=== PATIENT | male | born 1965 | race Caucasian/White ===

== ENCOUNTER 2019-07-24 17:03 | Emergency (ER) | payer OTHER ==
[2019-07-24 17:26] VITALS: RESP 18; TEMP 98.1
[2019-07-24] MEDS ORDERED: KETOROLAC 60 MG/2 ML VIAL IM STA (18:09)
[2019-07-24] MEDS ORDERED: predniSONE 50 MG TAB PO STA (18:09)
[2019-07-24] MEDS ORDERED: ACET/COD 300 MG/30 MG STARTER PACK 6 TAB BTL PO STA (18:25)
--- NOTE | 2019-07-24 18:31 | ED ---
General Adult HPI - General Chief complaint: Back Pain/Injury Stated complaint: BACK AND HIP PAIN Time Seen by Provider: 07/24/19 17:50 Source: patient, RN notes reviewed, old records reviewed Mode of arrival: ambulatory Limitations: no limitations - History of Present Illness Initial comments: 54-year-old male patient to see for chief complaint of right paralumbar back pain. Patient reports approximately one week ago he picked up a 55 gallon drum. Patient reports a since then he has had pain in his right paralumbar region rating down his posterior right gluteal region. Patient reports he has had some paresthesias in that region as well. Denies any saddle anesthesia. Denies any lower extremity weakness. Denies any loss of bowel or bladder control. Denies any other complaints at this time. Systemic: Pt denies fatigue, fever/chills, rash. Pt denies weakness, night sweats, weight loss. Neuro: Pt denies headache, visual disturbances, syncope or pre-syncope. HEENT: Pt denies ocular discharge or irritation, otalgia, rhinorrhea, pharyngitis or notable lymphadenopathy. Cardiopulmonary: Pt denies chest pain, SOB, heart palpitations, dyspnea on exertion. Abdominal/GI: Pt denies abdominal pain, n/v/d. : Pt denies dysuria, burning w/ urination, frequency/urgency. Denies new onset urinary or bowel incontinence. MSK: Pt denies loss of strength or function in extremities. Neuro: Pt denies new onset weakness, paresthesias. - Related Data Previous Rx's Medication Instructions Recorded Amoxic-Pot Clav 500-125 mg 1 each PO Q12HR #14 tab 05/14/15 [Augmentin 500-125 mg] Hydrocodone/Acetaminophen [[place] 1 each PO Q6HR PRN #20 tab 05/14/15 5-325] predniSONE 50 mg PO DAILY #4 tab 07/24/19 Allergies Allergy/AdvReac Type Severity Reaction Status Date / Time ibuprofen AdvReac Itching Verified 07/24/19 17:26 Review of Systems ROS Statement: Those systems with pertinent positive or pertinent negative responses have been documented in the HPI. ROS Other: All systems not noted in ROS Statement are negative. Past Medical History Past Medical History: No Reported History History of Any Multi-Drug Resistant Organisms: None Reported Past Surgical History: Cholecystectomy, Hernia Repair Past Psychological History: No Psychological Hx Reported Smoking Status: Current every day smoker Past Alcohol Use History: Occasional Past Drug Use History: None Reported General Exam - General Exam Comments Initial Comments: Constitutional: NAD, AOX3, Pt has pleasant affect. HEENT: NC/AT, trachea midline, neck supple, no lymphadenopathy. Posterior pharynx non erythematous, without exudates. External ears appear normal, without discharge. Mucous membranes moist. Eyes PERRLA, EOM intact. There is no scleral icterus. No pallor noted. Cardiopulmonary: RRR, no murmurs, rubs or gallops, no JVD noted. Lungs CTAB in anterior and posterior isaac. No peripheral edema. Abdominal exam: Abdomen soft and non-distended. Abdomen non-tender to palpation in all 4 quadrants. Bowel sounds active in LLQ. No hepatosplenomegaly. No ecchymosis Neuro: CN II-XII grossly intact. No nuchal rigidity. No raccon eyes, no vega sign, no hemotympanum. No cervical spinal tenderness. MSK: 5 out of 5 psoas and quadriceps strength. Heel to toe walking intact. Sensation intact. Right paralumbar region mildly tender to palpation. No posterior calf tenderness bilaterally, homans sign negative bilaterally. Posterior tibialis and radial pulse +2 bilaterally. Sensation intact in upper and lower extremities. Full active ROM in upper and lower extremities, 5/5 stregnth. Limitations: no limitations Course Vital Signs 07/24/19 17:23 Temperature 98.1 F Pulse Rate 66 Respiratory 18 Rate Blood Pressure 182/95 O2 Sat by Pulse 100 Oximetry Medical Decision Making - Medical Decision Making 54-year-old male patient presents to ED with right paralumbar strain. This occurred after picking up a 55 gallon drum. Patient was of ongoing for approximately one week. Denies any red flag symptoms. Physical exam displayed about 5 strength quadriceps psoas muscles, sensation intact. Resisted flexion of right lower extremity diffuse pain. Patient is ambulatory. Heel toe walking intact. Patient offered, declined plain films. Patient declined rectal exam. Patient initiated on anti-inflammatories, steroids. Patient will follow-up with primary care provider will be given orthopedic consult symptoms persist. Case discussed with Dr. Matt. Disposition Clinical Impression: Lumbar back sprain Disposition: HOME SELF-CARE Condition: Stable Instructions (If sedation given, give patient instructions): Acute Low Back P ain (ED) Additional Instructions: Patient to adhere to previously discussed treatment plan and will take medication(s) as directed. Patient to follow up with PCP in 1-2 days. Patient to return to ED if symptoms do not improve. Follow up with primary care provider tomorrow. Take medication as directed. Follow with orthopedic consult symptoms persist or worsen. Prescriptions: predniSONE 50 mg PO DAILY #4 tab Is patient prescribed a controlled substance at d/c from ED?: No Referrals: None,Stated [Primary Care Provider] - 1-2 days Lucinda Hobbs, DO [Doctor of Osteopathic Medicine] - 1-2 days
[2019-07-24 19:21] VITALS: BP 190/90; PULSE 60
== END 2019-07-24 19:22 | disposition home or self-care (01) ==
LOC: EC 17:03
DX: S33.5XXA Sprain of ligaments of lumbar spine, initial encounter (principal); F17.200 Nicotine dependence, unspecified, uncomplicated; Z88.6 Allergy status to analgesic agent; X50.9XXA Other and unspecified overexertion or strenuous movements or postures, initial encounter
CPT/HCPCS: 99283; 96372; J1885; J7512

== ENCOUNTER 2019-08-01 14:53 | Emergency (ER) | payer OTHER ==
[2019-08-01 15:05] VITALS: BP 183/100; PULSE 61; RESP 18; TEMP 97.7
[2019-08-01] MEDS ORDERED: DIAZEPAM 5 MG TAB PO STA (15:20)
[2019-08-01] MEDS ORDERED: Acetaminophen-Codeine 300-30mg TAB PO STA (15:21)
--- NOTE | 2019-08-01 15:52 | XR ---
EXAM TYPE: LUMBAR SPINE X RAY SERIES COMPARISON: 09/09/2008 HISTORY: Low back pain TECHNIQUE: 3 views are submitted. FINDINGS: Alignment is anatomic. The pedicles are intact. The transverse processes are intact. Surgical clip s in the right upper quadrant noted. Hypertrophic and degenerative changes at all levels. There is a slight anterolisthesis of L4 on L5 with multilevel facet arthropathy. There is a age-indeterminate co mpression fracture of T12. Vascular calcifications are noted. IMPRESSION: 1. Age indeterminate compression fracture T12 2. Multilevel degenerative disc disease and facet arthropathy with grade 1 anterolisthesis L4 on L5.
--- NOTE | 2019-08-01 16:43 | ED ---
General Adult HPI - General Chief complaint: Back Pain/Injury Stated complaint: back pain/revisit Time Seen by Provider: 08/01/19 15:06 Source: patient, RN notes reviewed, old records reviewed Mode of arrival: ambulatory Limitations: no limitations - History of Present Illness Initial comments: 54-year-old male patient presents ED chief complaint of back pain. Patient reports that he was seen approximately to go for back pain. Patient reports he is feeling much improved over yesterday he was shoveling at work, exacerbated his right paralumbar back pain. Patient works that today he went to stand up, he put weight on his right leg he felt pain in his right paralumbar region. Patient controlled to sent to chair and then slid to ground. Denies any other complaints. Denies any saddle anesthesia, loss of bowel or bladder control, lower extremity paresthesias. Systemic: Pt denies fatigue, fever/chills, rash. Pt denies weakness, night sweats, weight loss. Neuro: Pt denies headache, visual disturbances, syncope or pre-syncope. HEENT: Pt denies ocular discharge or irritation, otalgia, rhinorrhea, pharyngitis or notable lymphadenopathy. Cardiopulmonary: Pt denies chest pain, SOB, heart palpitations, dyspnea on exertion. Abdominal/GI: Pt denies abdominal pain, n/v/d. : Pt denies dysuria, burning w/ urination, frequency/urgency. Denies new onset urinary or bowel incontinence. MSK: Pt deniesloss of strength or function in extremities. Neuro: Pt denies new onset weakness, paresthesias. - Related Data Previous Rx's Medication Instructions Recorded predniSONE 50 mg PO DAILY #4 tab 07/24/19 Cyclobenzaprine [Flexeril] 1 - 2 tab PO TID PRN #20 tablet 08/01/19 Allergies Allergy/AdvReac Type Severity Reaction Status Date / Time ibuprofen AdvReac Itching Verified 07/24/19 17:26 Review of Systems ROS Statement: Those systems with pertinent positive or pertinent negative responses have been documented in the HPI. ROS Other: All systems not noted in ROS Statement are negative. Past Medical History Past Medical History: No Reported History History of Any Multi-Drug Resistant Organisms: None Reported Past Surgical History: Cholecystectomy, Hernia Repair Past Psychological History: No Psychological Hx Reported Smoking Status: Current every day smoker Past Alcohol Use History: Occasional Past Drug Use History: None Reported General Exam - General Exam Comments Initial Comments: Constitutional: NAD, AOX3, Pt has pleasant affect. HEENT: NC/AT, trachea midline, neck supple, no lymphadenopathy. Posterior pharynx non erythematous, without exudates. External ears appear normal, without discharge. Mucous membranes moist. Eyes PERRLA, EOM intact. There is no scleral icterus. No pallor noted. Cardiopulmonary: RRR, no murmurs, rubs or gallops, no JVD noted. Lungs CTAB in anterior and posterior isaac. No peripheral edema. Abdominal exam: Abdomen soft and non-distended. Abdomen non-tender to palpation in all 4 quadrants. Bowel sounds active in LLQ. No hepatosplenomegaly. No ecchymosis Neuro: CN II-XII grossly intact. No nuchal rigidity. No raccon eyes, no vega sign, no hemotympanum. No cervical spinal tenderness. MSK: Right paralumbar region mildly tender to palpation. No midline tenderness. Right straight leg raise positive. Left straight leg raise negative. Sensation intact. Ambulatory. No posterior calf tenderness bilaterally, homans sign negative bilaterally. Posterior tibialis and radial pulse +2 bilaterally. Sensation intact in upper and lower extremities. Full active ROM in upper and lower extremities, 5/5 stregnth. Limitations: no limitations Course Vital Signs 08/01/19 15:01 Temperature 97.7 F Pulse Rate 61 Respiratory 18 Rate Blood Pressure 183/100 O2 Sat by Pulse 100 Oximetry Medical Decision Making - Medical Decision Making 54-year-old male patient presents to ED chief complaint of exacerbation of back pain with mechanism. Patient vital signs blood mild hypertension. Physical exam suggestive of right paralumbar back strain. No point tenderness. Plain film of lumbar spine did reveal age-indeterminate T12 fracture. Patient does not have point tenderness in this region. Patient noted to have mildly elevated blood pressure. Will follow up with PCP. Patient was discharged with outpatient follow-up with primary care provider, patient held as well as orthopedics. Case discussed with Dr. Donnelly. Disposition Clinical Impression: Lumbar back sprain Disposition: HOME SELF-CARE Instructions (If sedation given, give patient instructions): Acute Low Back Pain (ED) Additional Instructions: Patient to adhere to previously discussed treatment plan and will take medication(s) as directed. Patient to follow up with PCP in 1-2 days. Patient to return to ED if symptoms do not improve. Follow-up with primary care provider occupational health and orthopedic consult tomorrow. Avoid strenuous activity. Use medication as needed for pain. Return to ER if condition worsens. Prescriptions: Cyclobenzaprine [Flexeril] 1 - 2 tab PO TID PRN #20 tablet PRN Reason: muscle spasm Is patient prescribed a controlled substance at d/c from ED?: No Referrals: None,Stated [Primary Care Provider] - 1-2 days Lucinda Hobbs DO [Doctor of Osteopathic Medicine] - 1-2 days Jey Bland MD [STAFF PHYSICIAN] - 1-2 days
[2019-08-01] MEDS ORDERED: ACET/COD 300 MG/30 MG STARTER PACK 6 TAB BTL PO STA (16:44)
== END 2019-08-01 16:50 | disposition home or self-care (01) ==
LOC: EC 14:53
DX: S33.5XXA Sprain of ligaments of lumbar spine, initial encounter (principal); F17.200 Nicotine dependence, unspecified, uncomplicated; Z88.6 Allergy status to analgesic agent; X58.XXXA Exposure to other specified factors, initial encounter; Y93.H1 Activity, digging, shoveling and raking; Y92.69 Other specified industrial and construction area as the place of occurrence of the external cause; Y99.0 Civilian activity done for income or pay
CPT/HCPCS: 72100; 99284

== ENCOUNTER 2023-10-01 12:56 | Inpatient (IN) | payer OTHER ==
[2023-10-01 13:59] LABS: Basophils # (A) 0.1 k/uL (0-0.2); Basophils % (A) 1 %; Eosinophils # (A) 0.1 k/uL (0-0.7); Eosinophils % (A) 1 %; HCT 42.9 % (39.0-53.0); HGB 15.2 gm/dL (13.0-17.5); Lymphocytes # (A) 1.8 k/uL (1.0-4.8); Lymphocytes % (A) 17 %; MCH 35.7 pg (25.0-35.0); MCHC 35.3 g/dL (31.0-37.0); MCV 101.1 fL (80.0-100.0); Mean Platelet Volume 7.4; Monocytes # (A) 0.6 k/uL (0-1.0); Monocytes % (A) 5 %; Neutrophils # (A) 7.7 k/uL (1.3-7.7); Neutrophils % (A) 75 %; Platelet Count 227 k/uL (150-450); RBC 4.24 m/uL (4.30-5.90); RDW 12.2 % (11.5-15.5); WBC 10.3 k/uL (3.8-10.6)
--- NOTE | 2023-10-01 14:08 | ED ---
General Adult HPI - General Chief complaint: Extremity Problem,Nontraumatic Stated complaint: R foot pain Time Seen by Provider: 10/01/23 13:06 Source: patient, RN notes reviewed Mode of arrival: ambulatory Limitations: no limitations - History of Present Illness Initial comments: 58-year-old male with no significant past medical history presents to the emergency department with a chief complaint of left foot problem. Patient reports that his left great toe started to turn into the color approximately one week ago. He reports his whole told history of black and started migrating to the top of his foot. She is also complaining of redness. He denies any nose, tingling or weakness. He does admit that is painful. Denies history of di abetes. She reports that it initially started on a small scratch there is rapidly progress. Denies any known fevers. He has not seen a medical doctor in quite some time. He does not take any medications daily. Patient does smoke tobacco products daily - Related Data Home Medications Medication Instructions Recorded Confirmed No Known Home Medications 10/01/23 10/01/23 Allergies Allergy/AdvReac Type Severity Reaction Status Date / Time No Known Allergies Allergy Verified 10/01/23 16:54 Review of Systems ROS Statement: Those systems with pertinent positive or pertinent negative responses have been documented in the HPI. ROS Other: All systems not noted in ROS Statement are negative. Past Medical History Past Medical History: No Reported History History of Any Multi-Drug Resistant Organisms: None Reported Past Surgical History: Cholecystectomy, Hernia Repair Past Psychological History: No Psychological Hx Reported Smoking Status: Current every day smoker Past Alcohol Use History: Occasional Past Drug Use History: None Reported General Exam - General Exam Comments Initial Comments: General: Alert, in no acute distress Head: atraumatic normocephalic. Eyes PERRL, EOMI intact, mucous membranes moist Respiratory: Lungs clear to auscultation bilaterally Cardiovascular: Tachycardic Abdominal: Soft without guarding or rebound Extremities: Right great toe with necrotic tissue that appears to be dry gangrene with discharge to top of dorsal surface, no palpable DP pulse Neuroogic: alert and oriented 3, CN II-XII intact, able to ambulate with steady gait Skin: warm dry and intact with normal color Limitations: no limitations Course Vital Signs 10/01/23 10/01/23 10/01/23 12:59 13:51 16:17 Temperature 98.8 F 98.1 F 98.4 F Pulse Rate 118 H 96 73 Respiratory 20 20 17 Rate Blood Pressure 198/129 196/110 200/105 O2 Sat by Pulse 98 98 98 Oximetry - Reevaluation(s) Reevaluation #1: 10/01/23 15:[address] Hartley, who recommends starting heparin and requests CHARLES with doppler to be ordered. Reevaluation #2: 10/01/23 16:38 Case is discussed who agrees and accepts the patient for admission Medical Decision Making - Medical Decision Making Was pt. sent in by a medical professional or institution (, JORDY, CERTIFIED RESIDENTIAL MEDICATION AIDE, urgent care, hospital, or assisted...) When possible be specific @ -[No] Did you speak to anyone other than the patient for history (EMS, parent, family, police, friend...)? What history was obtained from this source @ -[No] Did you review nursing and triage notes (agree or disagree)? Why? @ -[I reviewed and agree with nursing and triage notes] Were old charts reviewed (outside hosp., previous admission, EMS record, old EKG, old radiological studies, urgent care reports/EKG's, assisted records)? Report findings @ -[No old charts were reviewed] Differential Diagnosis (chest pain, altered mental status, abdominal pain women, abdominal pain men, vaginal bleeding, weakness, fever, dyspnea, syncope, headache, dizziness, GI bleed, back pain, seizure, CVA, palpatations, mental health, musculoskeletal)? @ -[not applicable] EKG interpreted by me (3pts min.). @ -[As above] X-rays interpreted by me (1pt min.). @ -[None done] CT interpreted by me (1pt min.). @ -yes, below U/S interpreted by me (1pt. min.). @ -[None done] What testing was considered but not performed or refused? (CT, X-rays, U/S, labs)? Why? @ -[None] What meds were considered but not given or refused? Why? @ -[None] Did you discuss the management of the patient with other professionals (professionals i.e. , JORDY, CERTIFIED RESIDENTIAL MEDICATION AIDE, lab, RT, psych nurse, marriage and family social worker, trial lawyer, teacher, medical officer, cyanide case hardener)? Give summary @ -Case discussed with Dr. Pollard, who recommends starting heparin and having CHARLES with US Doppler Case discussed with [facility] who agrees and accepts the patient for admission Was smoking cessation discussed for >3mins.? @ -yes Was critical care preformed (if so, how long)? @ -[No] Were there social determinants of health that impacted care today? How? (Homelessness, low income, unemployed, alcoholism, drug addiction, transportation, low edu. Level, literacy, decrease access to med. care, half-way, rehab)? @ -Medical Non-compliance, lack of routine medical care Was there de-escalation of care discussed even if they declined (Discuss DNR or withdrawal of care, Hospice)? DNR status @ -[No] What co-morbidities impacted this encounter? (DM, HTN, Smoking, COPD, CAD, Cancer, CVA, ARF, Chemo, Hep., AIDS, mental health diagnosis, sleep apnea, morbid obesity)? @ -Smoking, undiagnosed HTN, Undiagnosed DM Was patient admitted / discharged? Hospital course, mention meds given and route, prescriptions, significant lab abnormalities, going to OR and other pert inent info. @ Admission. This is a pleasant 58-year-old male who presents to the emergency department with right leg problem. Patient had a thorough history and physical exam performed. Right great toe is necrotic with small amount of necrotic tissue to the dorsal surface of the right foot. No palpable DP pulse to right lower extremity, the touch. No calf tenderness. Patient laboratory studies which reveal WBC 10.3, hemoglobin 15.2, coagulations studies unrema rkable sodium 128 potassium 4.1 lactic acid 2.1 CK 37 CRP 2.5 I interpreted the following: XR of right leg reveals any evidence or fracture CT ight lower extremity which revealed vision of the distal right popliteal artery with reconstitution of the postsurgically artery in the fibular artery -Anterior tibial artery appears occluded from its origin and does not cross the foot I discussed the results in detail the patient verbalized understanding all questions addressed. He is agreeable with the plan for admission. Patient be started on high-dose heparin. Case is discussed with [facility] who agrees and accepts the patient for admission. Undiagnosed new problem with uncertain prognosis? @ -[No] Drug Therapy requiring intensive monitoring for toxicity (Heparin, Nitro, Insulin, Cardizem)? @ -Heparin Were any procedures done? @ -[No] Diagnosis/symptom? @ -Popliteal artery occlusion - Medical Non-compliance - New onset HTN - New onset DM Acute, or Chronic, or Acute on Chronic? @ -Acute on chronic Uncomplicated (without systemic symptoms) or Complicated (systemic symptoms)? @ -complicated Side effects of treatment? @ -[No] Exacerbation, Progression, or Severe Exacerbation? @ -[No] Poses a threat to life or bodily function? How? (Chest pain, USA, DC, pneumonia, PE, COPD, DKA, ARF, appy, cholecystitis, CVA, Diverticulitis, Homicidal, Suicidal, threat to staff... and all critical care pts) @ -yes - Lab Data Result diagrams: 10/01/23 13:49 10/01/23 13:49 Lab Results 10/01/23 10/01/23 10/01/23 Range/Units 13:49 13:49 13:49 WBC 10.3 (3.8-10.6) k/uL RBC 4.24 L (4.30-5.90) m/uL Hgb 15.2 (13.0-17.5) gm/dL Hct 42.9 (39.0-53.0) % MCV 101.1 H (80.0-100.0) fL MCH 35.7 H (25.0-35.0) pg MCHC 35.3 (31.0-37.0) g/dL RDW 12.2 (11.5-15.5) % Plt Count 227 (150-450) k/uL MPV 7.4 Neutrophils % 75 % Lymphocytes % 17 % Monocytes % 5 % Eosinophils % 1 % Basophils % 1 % Neutrophils # 7.7 (1.3-7.7) k/uL Lymphocytes # 1.8 (1.0-4.8) k/uL Monocytes # 0.6 (0-1.0) k/uL Eosinophils # 0.1 (0-0.7) k/uL Basophils # 0.1 (0-0.2) k/uL PT 9.7 L (10.0-12.5) sec INR 0.9 (<1.2) APTT 28.2 (22.0-30.0) sec Sodium 128 L (137-145) mmol/L Potassium 4.1 (3.5-5.1) mmol/L Chloride 93 L (98-107) mmol/L Carbon Dioxide 20 L (22-30) mmol/L Anion Gap 15 mmol/L BUN 9 (9-20) mg/dL Creatinine 0.78 (0.66-1.25) mg/dL Est GFR (CKD-EPI)AfAm >90 (>60 ml/min/1.73 sqM) Est GFR (CKD-EPI)NonAf >90 (>60 ml/min/1.73 sqM) Glucose 292 H (74-99) mg/dL Lactic Ac Sepsis Rflx Plasma Lactic Acid Mark (0.7-2.0) mmol/L Calcium 9.6 (8.4-10.2) mg/dL Total Bilirubin 0.8 (0.2-1.3) mg/dL AST 25 (17-59) U/L ALT 21 (4-49) U/L Alkaline Phosphatase 151 H (38-126) U/L Creatine Kinase 37 L (55-170) U/L C-Reactive Protein 2.5 H (<1.0) mg/dL Total Protein 7.1 (6.3-8.2) g/dL Albumin 3.8 (3.5-5.0) g/dL 10/01/23 10/01/23 Range/Units 13:49 14:16 WBC (3.8-10.6) k/uL RBC (4.30-5.90) m/uL Hgb (13.0-17.5) gm/dL Hct (39.0-53.0) % MCV (80.0-100.0) fL MCH (25.0-35.0) pg MCHC (31.0-37.0) g/dL RDW (11.5-15.5) % Plt Count (150-450) k/uL MPV Neutrophils % % Lymphocytes % % Monocytes % % Eosinophils % % Basophils % % Neutrophils # (1.3-7.7) k/uL Lymphocytes # (1.0-4.8) k/uL Monocytes # (0-1.0) k/uL Eosinophils # (0-0.7) k/uL Basophils # (0-0.2) k/uL PT (10.0-12.5) sec INR (<1.2) APTT (22.0-30.0) sec Sodium (137-145) mmol/L Potassium (3.5-5.1) mmol/L Chloride (98-107) mmol/L Carbon Dioxide (22-30) mmol/L Anion Gap mmol/L BUN (9-20) mg/dL Creatinine (0.66-1.25) mg/dL Est GFR (CKD-EPI)AfAm (>60 ml/min/1.73 sqM) Est GFR (CKD-EPI)NonAf (>60 ml/min/1.73 sqM) Glucose (74-99) mg/dL Lactic Ac Sepsis Rflx Y Plasma Lactic Acid Mark 2.1 H* (0.7-2.0) mmol/L Calcium (8.4-10.2) mg/dL Total Bilirubin (0.2-1.3) mg/dL AST (17-59) U/L ALT (4-49) U/L Alkaline Phosphatase (38-126) U/L Creatine Kinase (55-170) U/L C-Reactive Protein (<1.0) mg/dL Total Protein (6.3-8.2) g/dL Albumin (3.5-5.0) g/dL Disposition Clinical Impression: Popliteal artery occlusion, right, Dry gangrene, Diabetes mellitus, HTN (hyp ertension), Medical non-compliance Disposition: ADMITTED IP TO THIS HOSP Condition: Fair Is patient prescribed a controlled substance at d/c from ED?: No Referrals: None,Stated [Primary Care Provider] - 1-2 days Time of Disposition: 17:12
[2023-10-01 14:11] LABS: ALT 21 U/L (4-49); AST 25 U/L (17-59); African American GFR (CKD) >90 (>60 ml/min/1.73 sqM); Albumin 3.8 g/dL (3.5-5.0); Alkaline Phosphatase 151 U/L (38-126); Anion Gap 15 mmol/L; Blood Urea Nitrogen 9 mg/dL (9-20); C Reactive Protein 2.5 mg/dL (<1.0); Calcium 9.6 mg/dL (8.4-10.2); Carbon Dioxide 20 mmol/L (22-30); Chloride 93 mmol/L (98-107); Creatine Kinase 37 U/L (55-170); Glucose 292 mg/dL (74-99); Non-African American GFR(CKD) >90 (>60 ml/min/1.73 sqM); Potassium 4.1 mmol/L (3.5-5.1); Sodium 128 mmol/L (137-145); Total Bilirubin 0.8 mg/dL (0.2-1.3); Total Protein 7.1 g/dL (6.3-8.2)
[2023-10-01 14:18] LABS: INR 0.9 (<1.2); Partial Thromboplastin Time 28.2 sec (22.0-30.0); Prothrombin Time 9.7 sec (10.0-12.5)
--- NOTE | 2023-10-01 14:19 | XR ---
EXAMINATION TYPE: XR foot complete RT DATE OF EXAM: 10/01/2023 2:03 PM CLINICAL INDICATION:Male, 58 years old with history of leg pain; PHH COMPARISON: None TECHNIQUE: XR foot complete RT examined in the AP, oblique, and lateral projections. FINDINGS: No evidence of any acute osseous pathology. No evidence of soft tissue swelling. Joints are preserve d. Calcaneal plantar spurring is present. Multifocal degeneration with osteophyte formation and joint space narrowing. Hallux valgus. IMPRESSION: 1. No evidence of acute fracture. 2. Moderate first metatarsal phalangeal joint osteoporosis with mild hallux valgus.
[2023-10-01] MEDS ORDERED: SODIUM CHLORIDE 0.9% 1,000 ML IV ONE (14:46)
--- NOTE | 2023-10-01 15:03 | CT ---
EXAMINATION TYPE: CT lower leg RT w con CT DLP: 240.1 mGycm, Automated exposure control for dose reduction was used. DATE OF EXAM: 10/01/2023 2:44 PM COMPARISON: Extremity radiograph same day. CLINICAL INDICATION:Male, 58 years old with history of leg pain; PHH, Rt foot black TECHNIQUE: Axial images were obtained of the CT lower leg RT w con, Additional coronal and sagittal r eformatted images and soft tissue and bone window were obtained for review.. Contrast used:100 ml mL of Isovue 300 with IV Contrast, (None if empty) Oral contrast used: (None if empty) FINDINGS: Poor bolus timing limits evaluation of the arterial vasculature there is occlusion near the popliteal artery bifurcation with poor visualization of the anterior tibial artery and the tibial-p eroneal trunk. The posterior tibial artery and peroneal artery demonstrate reconstitution more inferi catarina. The posterior tibial artery does cross the ankle. Anterior tibial artery is nonvisualized throu ghout the leg from its origin and distally. No evidence of fracture or dislocation. There is severe degeneration changes partially visualized of the first digit metatarsophalangeal joint joint. IMPRESSION: Occlusion of the distal right popliteal artery with reconstitution of the posterior tibial artery and the fibular artery. The anterior tibial artery appears occluded from its origin and does not cross t he foot
[2023-10-01] MEDS ORDERED: MORPHINE SULFATE 4 MG/ML SYRINGE IVP STA (15:17)
[2023-10-01] MEDS ORDERED: HEPARIN SODIUM 1,000 UN/ML (10ML VL) IV PRN (15:39)
[2023-10-01] MEDS ORDERED: HEPARIN SODIUM 1,000 UN/ML (10ML VL) IV ONE (15:39)
[2023-10-01] MEDS: HEPARIN SOD,PORK IN 0.45% NACL 25,000 UNIT in 0.45% NACL 1 250ML.BAG IV SCH (16:08)
[2023-10-01] MEDS ORDERED: NALOXONE 0.4 MG/ML 1 ML VIAL IV PRN (17:12)
[2023-10-01] MEDS ORDERED: ONDANSETRON 4 MG/2 ML VIAL IVP PRN (17:12)
[2023-10-01] MEDS: SODIUM CHLORIDE 0.9% 1,000 ML IV SCH (17:26)
[2023-10-01] MEDS: HYDROmorphone 0.5 MG/0.5 ML SYRINGE IVP PRN ×2 (17:29→20:39)
--- NOTE | 2023-10-01 19:11 | P.GSCN ---
History of Present Illness Consult date: 10/01/23 Reason for Consult: right toe gangrene, popliteal artery occlusion History of present illness: 58-year-old male with no significant past medical history presented to the ER with complaints of left lower extremity pain and discoloration of the great toe. Patient states that his left great toe started to turn purple and now black approximately one week ago. He states having pain with ambulation for the last several months to a year and noticed the pain in the calf had been worsening until approximately 2 weeks ago he had severe pain in the foot and discoloration. He soaked the foot at that time to see if it would help and he noticed the foot turned purple in color. He no longer is able to walk any farther than 100 feet without discomfort. Denies history of diabetes. He states his redness and discoloration has progressed over the last couple of days and has been creeping up the foot to the ankle. He denies any fevers, chills, chest pain or shortness of breath. Review of Systems All systems: negative (what is mentioned in the PMH or HPI) Past Medical History Past Medical History: No Reported History History of Any Multi-Drug Resistant Organisms: None Reported Past Surgical History: Cholecystectomy, Hernia Repair Past Psychological History: No Psychological Hx Reported Smoking Status: Current every day smoker Past Alcohol Use History: Occasional Past Drug Use History: None Reported Medications and Allergies Home Medications Medication Instructions Recorded Confirmed Type No Known Home Medications 10/01/23 10/01/23 History Allergies Allergy/AdvReac Type Severity Reaction Status Date / Time No Known Allergies Allergy Verified 10/01/23 16:54 Surgical - Exam Vital Signs Temp Pulse Resp BP Pulse Ox 98.8 F 118 H 20 198/129 98 10/01/23 12:59 10/01/23 12:59 10/01/23 12:59 10/01/23 12:59 10/01/23 12:59 - General well developed, well nourished, no distress - Eyes PERRL, normal ocular movement - ENT normal pinna, normal nares - Neck no masses, no bruits - Respiratory normal expansion - Cardiovascular Rhythm: regular - Abdomen Abdomen: soft, non tender - Integumentary right anterior meng and foot with erythema, slow capillary refill. Eschar noted at the dorsal aspect of the foot. Dry gangrene of the right great toe noted. - Neurologic no normal sensation - Psychiatric oriented to time, oriented to person, oriented to place, speech is normal palpable femoral pulses bilaterally diminished left popliteal pulse absent right popliteal, dp and pt pulses. non palpable left dp or pt pulses. Capillary refill on the left is better than the right. Patient is able to move foot at ankle. No tenderness at the calves. Results - Labs 10/01/23 13:49 10/01/23 13:49 Abnormal Lab Results - Last 24 Hours (Table) 10/01/23 10/01/23 10/01/23 Range/Units 13:49 13:49 13:49 RBC 4.24 L (4.30-5.90) m/uL MCV 101.1 H (80.0-100.0) fL MCH 35.7 H (25.0-35.0) pg PT 9.7 L (10.0-12.5) sec Sodium 128 L (137-145) mmol/L Chloride 93 L (98-107) mmol/L Carbon Dioxide 20 L (22-30) mmol/L Glucose 292 H (74-99) mg/dL Plasma Lactic Acid Mark (0.7-2.0) mmol/L Alkaline Phosphatase 151 H (38-126) U/L Creatine Kinase 37 L (55-170) U/L C-Reactive Protein 2.5 H (<1.0) mg/dL 10/01/23 Range/Units 13:49 RBC (4.30-5.90) m/uL MCV (80.0-100.0) fL MCH (25.0-35.0) pg PT (10.0-12.5) sec Sodium (137-145) mmol/L Chloride (98-107) mmol/L Carbon Dioxide (22-30) mmol/L Glucose (74-99) mg/dL Plasma Lactic Acid Mark 2.1 H* (0.7-2.0) mmol/L Alkaline Phosphatase (38-126) U/L Creatine Kinase (55-170) U/L C-Reactive Protein (<1.0) mg/dL Diabetes panel 10/01/23 Range/Units 13:49 Sodium 128 L (137-145) mmol/L Potassium 4.1 (3.5-5.1) mmol/L Chloride 93 L (98-107) mmol/L Carbon Dioxide 20 L (22-30) mmol/L BUN 9 (9-20) mg/dL Creatinine 0.78 (0.66-1.25) mg/dL Glucose 292 H (74-99) mg/dL Calcium 9.6 (8.4-10.2) mg/dL AST 25 (17-59) U/L ALT 21 (4-49) U/L Alkaline Phosphatase 151 H (38-126) U/L Total Protein 7.1 (6.3-8.2) g/dL Albumin 3.8 (3.5-5.0) g/dL Calcium panel 10/01/23 Range/Units 13:49 Calcium 9.6 (8.4-10.2) mg/dL Albumin 3.8 (3.5-5.0) g/dL Pituitary panel 10/01/23 Range/Units 13:49 Sodium 128 L (137-145) mmol/L Potassium 4.1 (3.5-5.1) mmol/L Chloride 93 L (98-107) mmol/L Carbon Dioxide 20 L (22-30) mmol/L BUN 9 (9-20) mg/dL Creatinine 0.78 (0.66-1.25) mg/dL Glucose 292 H (74-99) mg/dL Calcium 9.6 (8.4-10.2) mg/dL Adrenal panel 10/01/23 Range/Units 13:49 Sodium 128 L (137-145) mmol/L Potassium 4.1 (3.5-5.1) mmol/L Chloride 93 L (98-107) mmol/L Carbon Dioxide 20 L (22-30) mmol/L BUN 9 (9-20) mg/dL Creatinine 0.78 (0.66-1.25) mg/dL Glucose 292 H (74-99) mg/dL Calcium 9.6 (8.4-10.2) mg/dL Total Bilirubin 0.8 (0.2-1.3) mg/dL AST 25 (17-59) U/L ALT 21 (4-49) U/L Alkaline Phosphatase 151 H (38-126) U/L Total Protein 7.1 (6.3-8.2) g/dL Albumin 3.8 (3.5-5.0) g/dL - Imaging Comments: cta of the right lower extremity demonstrates occlusion of the popliteal artery with reconstitution of the [employer] and peroneal Assessment and Plan Assessment: Right great toe dry gangrene Right lower extremity limb ischemia- chronic Right popliteal artery occlusion Tobacco abuse Plan: Agree with heparin. Discussed with patient and family need for catheter directed angiogram within the next couple of days due to the chronic nature of the disease. He will likely require amputation of the great toe as well as a bypass to the posterior tibial artery due to the extent of occlusion and location behind knee. Continue pain control. Will obtain CHARLES's and vein mapping. Thank you for the consultation.
--- NOTE | 2023-10-01 20:08 | US ---
EXAMINATION TYPE: US vein mapping BIL DATE OF EXAM: 10/01/2023 7:47 PM COMPARISON: NONE CLINICAL INDICATION: Male, 58 years old with history of limb ischemia, need for lower extremity bypas s; TECHNIQUE: Lower extremity saphenous vein is examined and measured utilizing real time linear array sonography. Patient History: Smoker: current Heart Disease: N Previous DVT: N Vascular Surgery: N Discoloration: right distal calf is red and the big toe on the right is black Hypertension: Y Diabetes: N Paralysis: N Varicosities: Y Edema: right foot DUPLEX FINDINGS: Greater Saphenous: Color flow seen Measurements in mm: Right Greater Saphenous: Groin: 5.8x5.6 mm High Thigh: 3.8x3.6 mm Mid Thigh: 3.0x4.0 mm Above Knee: 3.3x3.3 mm Knee: 3.5x4.7 mm Below Knee: 3.9x6.3 mm Mid Calf: 2.7x3.2 mm At Ankle: 3.2x3.6 mm Left Greater Saphenous: Groin: 4.2x5.2 mm High Thigh: 3.4x4.6 mm Mid Thigh: 2.3x2.6 mm Above Knee: to small to visualize Knee: to small to visualize Below Knee: to small to visualize Mid Calf: to small to visualize At Ankle: to small to visualize exam limited by small vessel caliber IMPRESSION: 1. Poor visualization of the left greater saphenous system at the level of the distal th igh and distally, right GSV measurements listed above. 2. Performing surgeon to determine viability as conduit.
[2023-10-02] MEDS: HYDROmorphone 0.5 MG/0.5 ML SYRINGE IVP PRN ×6 (03:22→20:46)
[2023-10-02 03:25] LABS: Basophils # (A) 0.1 k/uL (0-0.2); Basophils % (A) 1 %; Eosinophils # (A) 0.1 k/uL (0-0.7); Eosinophils % (A) 2 %; HCT 40.5 % (39.0-53.0); HGB 13.5 gm/dL (13.0-17.5); Lymphocytes # (A) 1.9 k/uL (1.0-4.8); Lymphocytes % (A) 27 %; MCH 34.4 pg (25.0-35.0); MCHC 33.3 g/dL (31.0-37.0); MCV 103.2 fL (80.0-100.0); Macrocytosis Slight; Mean Platelet Volume 7.8; Monocytes # (A) 0.5 k/uL (0-1.0); Monocytes % (A) 8 %; Neutrophils # (A) 4.2 k/uL (1.3-7.7); Neutrophils % (A) 61 %; Platelet Count 169 k/uL (150-450); RBC 3.93 m/uL (4.30-5.90); RDW 12.6 % (11.5-15.5); WBC 6.9 k/uL (3.8-10.6)
[2023-10-02 03:37] LABS: African American GFR (CKD) >90 (>60 ml/min/1.73 sqM); Anion Gap 7 mmol/L; Blood Urea Nitrogen 8 mg/dL (9-20); Calcium 9.1 mg/dL (8.4-10.2); Carbon Dioxide 27 mmol/L (22-30); Chloride 97 mmol/L (98-107); Glucose 186 mg/dL (74-99); Non-African American GFR(CKD) >90 (>60 ml/min/1.73 sqM); Potassium 4.1 mmol/L (3.5-5.1); Sodium 131 mmol/L (137-145)
[2023-10-02] MEDS: SODIUM CHLORIDE 0.9% 1,000 ML IV SCH ×2 (06:01→17:05)
[2023-10-02] MEDS ORDERED: hydrALAZINE HCL 25 MG TAB PO PRN (08:57)
--- NOTE | 2023-10-02 09:05 | P.HPIM ---
History of Present Illness This is a pleasant 58 years old male with no significant past medical history and he does not follow up with his PCP. Presents because of redness and painful right lower extremity and foot. His problem started 2 days ago as right right foot switch to purple and then after a few more days as dull was gradually Black and its painful so decided to come to the hospital. She denies any change in urine or bowel habits. No fever. No disc disease weakness or numbness. No dizziness. Patient smokes about half pack per day and I counseled to quit but he declines stating he will slowed down He drinks beer almost every day but over the last week he drank only 2 days because of his foot. No illicit drugs. Patient blood pressure elevated 173/112 Labs including CBC, INR, BMP showed sodium of [address] showing occlusion of the distal right popliteal artery. Review of Systems Review of systems CONSTITUTIONAL: No fever, no malaise, no fatigue. HEENT: No recent visual problems or hearing problems. Denied any sore throat. CARDIOVASCULAR: No orthopnea, PND, no palpitations, no syncope. PULMONARY: No shortness of breath, no cough, no hemoptysis. GASTROINTESTINAL: No diarrhea, no nausea, no vomiting, no abdominal pain. Normoactive bowel sounds. NEUROLOGICAL: No headaches, no weakness, no numbness. HEMATOLOGICAL: Denies any bleeding or petechiae. GENITOURINARY: Denies any burning micturition, frequency, or urgency. MUSCULOSKELETAL/RHEUMATOLOGICAL: Denies any joint pain, swelling, or any muscle pain. ENDOCRINE: Denies any polyuria or polydipsia. Past Medical History Past Medical History: No Reported History History of Any Multi-Drug Resistant Organisms: None Reported Past Surgical History: Cholecystectomy, Hernia Repair Past Anesthesia/Blood Transfusion Reactions: No Reported Reaction Past Psychological History: No Psychological Hx Reported Smoking Status: Current every day smoker Past Alcohol Use History: Occasional Additional Past Alcohol Use History / Comment(s): 3-4 beers a day 4x a week Past Drug Use History: None Reported Medications and Allergies Home Medications Medication Instructions Recorded Confirmed Type No Known Home Medications 10/01/23 10/01/23 History Allergies Allergy/AdvReac Type Severity Reaction Status Date / Time No Known Allergies Allergy Verified 10/01/23 16:54 Physical Exam Vitals: Vital Signs Temp Pulse Pulse Resp BP BP Pulse Ox 10/02/23 06:36 97.9 F 60 16 190/90 99 10/02/23 06:12 97.4 F L 57 L 18 204/97 98 10/02/23 03:14 97.8 F 61 18 192/95 99 10/01/23 23:25 97.7 F 61 18 173/112 98 10/01/23 20:36 83 10/01/23 20:35 18 173/102 97 10/01/23 16:17 98.4 F 73 17 200/105 98 10/01/23 13:51 98.1 F 96 20 196/110 98 10/01/23 12:59 98.8 F 118 H 20 198/129 98 Intake and Output 10/01/23 10/02/23 10/02/23 22:59 06:59 14:59 Intake Total 903.918 420 Output Total 400 Balance 503.918 420 Intake: Intake, IV Titration 123.918 Amount Heparin Sod,Pork in 0.45% 123.918 NaCl 25,000 unit In 0.45 % NaCl 1 250ml.bag @ 18 UNITS/KG/HR 15.921 mls/hr IV .[id number] [facility] Rx#: [id number] Oral 780 420 Output: Urine 400 Other: Weight 88.451 kg GENERAL: The patient is alert and oriented x3, not in any acute distress. Well developed, well nourished. HEENT: Pupils are round and equally reacting to light. EOMI. No scleral icterus. No conjunctival pallor. Normocephalic, atraumatic. No pharyngeal erythema. No thyromegaly. CARDIOVASCULAR: S1 and S2 present. No murmurs, rubs, or gallops. PULMONARY: Chest is clear to auscultation, no wheezing , no crackles. ABDOMEN: Soft, nontender, nondistended, normoactive bowel sounds. No palpable organomegaly. MUSCULOSKELETAL: No joint swelling or deformity. -EXTREMITIES: No cyanosis, clubbing, or pedal edema. Redness of the right foot and distal right leg with blackish discoloration and dryness of the right big toe and small patch of black discoloration on the dorsum of the right foot about 2 inches in diameter NEUROLOGICAL: Gross neurological examination did not reveal any focal deficits. SKIN: No rashes. no petechiae. Results CBC & Chem 7: 10/02/23 03:11 10/02/23 03:11 Labs: Abnormal Lab Results - Last 24 Hours (Table) 10/01/23 10/01/23 10/01/23 Range/Units 13:49 13:49 13:49 RBC 4.24 L (4.30-5.90) m/uL MCV 101.1 H (80.0-100.0) fL MCH 35.7 H (25.0-35.0) pg PT 9.7 L (10.0-12.5) sec APTT (22.0-30.0) sec Sodium 128 L (137-145) mmol/L Chloride 93 L (98-107) mmol/L Carbon Dioxide 20 L (22-30) mmol/L BUN (9-20) mg/dL Glucose 292 H (74-99) mg/dL Plasma Lactic Acid Mark (0.7-2.0) mmol/L Alkaline Phosphatase 151 H (38-126) U/L Creatine Kinase 37 L (55-170) U/L C-Reactive Protein 2.5 H (<1.0) mg/dL 10/01/23 10/01/23 10/02/23 Range/Units 13:49 23:23 03:11 RBC 3.93 L (4.30-5.90) m/uL MCV 103.2 H (80.0-100.0) fL MCH (25.0-35.0) pg PT (10.0-12.5) sec APTT 61.8 H (22.0-30.0) sec Sodium (137-145) mmol/L Chloride (98-107) mmol/L Carbon Dioxide (22-30) mmol/L BUN (9-20) mg/dL Glucose (74-99) mg/dL Plasma Lactic Acid Mark 2.1 H* (0.7-2.0) mmol/L Alkaline Phosphatase (38-126) U/L Creatine Kinase (55-170) U/L C-Reactive Protein (<1.0) mg/dL 10/02/23 Range/Units 03:11 RBC (4.30-5.90) m/uL MCV (80.0-100.0) fL MCH (25.0-35.0) pg PT (10.0-12.5) sec APTT (22.0-30.0) sec Sodium 131 L (137-145) mmol/L Chloride 97 L (98-107) mmol/L Carbon Dioxide (22-30) mmol/L BUN 8 L (9-20) mg/dL Glucose 186 H (74-99) mg/dL Plasma Lactic Acid Mark (0.7-2.0) mmol/L Alkaline Phosphatase (38-126) U/L Creatine Kinase (55-170) U/L C-Reactive Protein (<1.0) mg/dL Thrombosis Risk Factor Assmnt - Choose All That Apply Any of the Below Risk Factors Present?: Yes Each Factor Represents 1 point: Age 41-60 years, Minor surgery planned Other Risk Factors: Yes Each Risk Factor Represents 2 Points: Patient confined to bed Other congenital or acquired thrombophilia - If yes, enter type in comment: No Thrombosis Risk Factor Assessment Total Risk Factor Score: 4 Thrombosis Risk Factor Assessment Level: Moderate Risk Assessment and Plan Assessment: Right lower extremity and foot ischemia secondary to acute on chronic right popliteal artery occlusion Dry gangrene and cellulitis of the right foot Uncontrolled hypertension with urgency present on admission Hypernatremia, improving Nicotine dependence Peripheral vascular disease as above. non- adherence with his medical management, does not follow up with PCP Plan: Continue with heparin drip Continue with normal saline 1 time dose of Lasix and hydralazine when necessary Check echocardiogram cardiology team consult for preop evaluation Labs and medication were reviewed.. Continue same treatment. Continue with symptomatic treatment. Resume home medication. Monitor labs and vitals. DVT and GI prophylaxis. Further recommendations as per clinical course of the patient DVT prophylaxis: heparin GI Prophylaxis: Pepcid PT/OT: Pending Prognosis is guarded
[2023-10-02] MEDS ORDERED: FUROSEMIDE 10 MG/ML 2 ML VIAL IV ONE (09:15)
[2023-10-02] MEDS: HEPARIN SOD,PORK IN 0.45% NACL 25,000 UNIT in 0.45% NACL 1 250ML.BAG IV SCH (09:47)
[2023-10-02] MEDS: FAMOTIDINE 20 MG/2 ML VIAL IV SCH ×2 (09:49→20:13)
[2023-10-02 11:34] LABS: Glucose,Whole Blood 187 mg/dL (70-110)
[2023-10-02] MEDS: INSULIN ASPART (NovoLOG) 100 UNIT/ML VIAL SQ SCH ×3 (12:27→20:13)
--- NOTE | 2023-10-02 14:04 | P.PN ---
Subjective Progress Note Date: 10/02/23 Patient seen and examined. No complaints or concern. Asking when he might be able to leave. pain as well controlled, he is getting IV pain medication Objective - Vital Signs Vital signs: Vital Signs Temp 98.0 F 10/02/23 11:27 Pulse 62 10/02/23 11:27 Resp 16 10/02/23 11:27 BP 141/91 10/02/23 11:27 Pulse Ox 99 10/02/23 11:27 FiO2 Intake & Output 10/01/23 10/02/23 10/02/23 18:59 06:59 18:59 Intake Total 903.918 556.082 Output Total 400 1400 Balance 503.918 -843.918 Weight 88.451 kg 88.451 kg Intake: IV 10 Invasive Line 1 10 Intake, IV Titration 123.918 126.082 Amount Heparin Sod,Pork in 0.45% 123.918 126.082 NaCl 25,000 unit In 0.45 % NaCl 1 250ml.bag @ 18 UNITS/KG/HR 15.921 mls/hr IV .[id number] [facility] Rx#: [id number] Oral 780 420 Output: Urine 400 1400 Other: Voiding Method Urinal - Exam right anterior meng and foot with erythema, slow capillary refill. Eschar noted at the dorsal aspect of the foot. Dry gangrene of the right great toe noted. palpable femoral pulses bilaterally diminished left popliteal pulse absent right popliteal, dp and pt pulses. non palpable left dp or pt pulses. Capillary refill on the left is better than the right. Patient is able to move foot at ankle. No tenderness at the calves. - Labs CBC & Chem 7: 10/02/23 03:11 10/02/23 03:11 Labs: Abnormal Lab Results - Last 24 Hours (Table) 10/01/23 10/01/23 10/01/23 Range/Units 13:49 13:49 13:49 RBC (4.30-5.90) m/uL MCV (80.0-100.0) fL PT 9.7 L (10.0-12.5) sec APTT (22.0-30.0) sec Sodium 128 L (137-145) mmol/L Chloride 93 L (98-107) mmol/L Carbon Dioxide 20 L (22-30) mmol/L BUN (9-20) mg/dL Glucose 292 H (74-99) mg/dL POC Glucose (mg/dL) (70-110) mg/dL Plasma Lactic Acid Mark 2.1 H* (0.7-2.0) mmol/L Alkaline Phosphatase 151 H (38-126) U/L Creatine Kinase 37 L (55-170) U/L C-Reactive Protein 2.5 H (<1.0) mg/dL 10/01/23 10/02/23 10/02/23 Range/Units 23:23 03:11 03:11 RBC 3.93 L (4.30-5.90) m/uL MCV 103.2 H (80.0-100.0) fL PT (10.0-12.5) sec APTT 61.8 H (22.0-30.0) sec Sodium 131 L (137-145) mmol/L Chloride 97 L (98-107) mmol/L Carbon Dioxide (22-30) mmol/L BUN 8 L (9-20) mg/dL Glucose 186 H (74-99) mg/dL POC Glucose (mg/dL) (70-110) mg/dL Plasma Lactic Acid Mark (0.7-2.0) mmol/L Alkaline Phosphatase (38-126) U/L Creatine Kinase (55-170) U/L C-Reactive Protein (<1.0) mg/dL 10/02/23 10/02/23 Range/Units 08:44 11:32 RBC (4.30-5.90) m/uL MCV (80.0-100.0) fL PT (10.0-12.5) sec APTT 44.6 H (22.0-30.0) sec Sodium (137-145) mmol/L Chloride (98-107) mmol/L Carbon Dioxide (22-30) mmol/L BUN (9-20) mg/dL Glucose (74-99) mg/dL POC Glucose (mg/dL) 187 H (70-110) mg/dL Plasma Lactic Acid Mark (0.7-2.0) mmol/L Alkaline Phosphatase (38-126) U/L Creatine Kinase (55-170) U/L C-Reactive Protein (<1.0) mg/dL Assessment and Plan Assessment: Right great toe dry gangrene Right lower extremity limb ischemia- chronic Right popliteal artery occlusion Tobacco abuse Plan: Imaging reviewed. Continue anticoagulation. Ultrasound reviewed, patient does have adequate size saphenous vein for in situ bypass. Awaiting CHARLES. Plan for angiogram. We will need planning for bypass and evaluation of potential target vessel. Continue cardiac evaluation, clearance for surgery.
--- NOTE | 2023-10-02 16:04 | US ---
EXAMINATION TYPE: US arterial LE multi level DATE OF EXAM: 10/02/2023 3:21 PM CLINICAL INDICATION: Male, 58 years old with history of Ischemic changes; Pain bilateral legs, worse on the right. Discoloration (redness) right meng, right foot. Gangrene right great toe. Wound right f oot, between great toe and 2nd toe History of: Smoker: current Hypertension: no Diabetic: no Hyperlipidemia: no TIA/CVA: no Previous Vascular Surgery: no [place]: no Doppler Waveforms: Irregular waveforms bilaterally. Pulse Volume Recording: Pressure Gradients: Right Brachial Pressure: 190 Left Brachial Pressure: 187 Ankle-Brachial Indices: Right: 0.33 Left: 0.46 Toe Brachial Indices: Right: unable to obtain. patient unable to tolerate Left: 0.22 IMPRESSION: Severe bilateral peripheral vascular disease
[2023-10-02 16:36] LABS: Glucose,Whole Blood 204 mg/dL (70-110)
[2023-10-02] MEDS: LOSARTAN 25 MG TAB PO SCH (17:04)
[2023-10-02] MEDS: ASPIRIN 81 MG PO SCH (17:04)
[2023-10-02] MEDS: METOPROLOL SUCCINATE (ER) 25 MG TAB.ER.24H PO SCH (17:04)
--- NOTE | 2023-10-02 18:09 | P.CRDCN ---
History of Present Illness Consult date: 10/02/23 History of present illness: HISTORY OF PRESENTING ILLNESS 58-year-old male with no significant past medical history who has not seen any physician in recent past presented because of redness and pain in his right lower extremity. On examination he was found to have a dry gangrene involving his right great toe. He also has poor pulses and right lower extremity. There is a possible concern of popliteal artery stenosis and he is planned for vascular procedure including peripheral angiogram and possible bypass surgery and toe amputation Cardiology was consulted for perioperative cardiac risk assessment. Patient denies having any symptoms of chest pain chest pressure palpitations lightheadedness or dizziness. He denies any exertional shortness of breath or exertional chest pain. He reports that prior to his leg pain he was able to walk significant amount without any limitations. He has not had any cardiac procedures in the past. He is a smoker smokes 1 pack per day. He drinks 3-4 times per week 4-5 beers. He denies any significant drug use. He reports occasional marijuana use REVIEW OF SYSTEMS 14 point review of system is negative except what is mentioned above in HPI. PHYSICAL EXAMINATION Vital signs reviewed. Head: Normocephalic. Eyes: Sclerae nonicteric. Neck: Brisk carotid upstroke, no jugular venous distention. Lungs: Clear to auscultation. Heart: Regular rate and rhythm, S1-S2, no S3, no murmur or rub. Abdomen: Soft nontender, positive bowel sounds no organomegaly. Extremities: No edema, intact distal pulses. Neuro: Alert, oritented, no focal deficits ASSESSMENT Perioperative cardiac risk assessment for toe amputation and possible fem-pop bypass right side Rt great toe gangrene Acute limb ischemia Rt Popliteal artery stenosis Tobacco use 1 pack per day Alcohol use Occasional marijuana use CT showed occlusion of distal right popliteal artery PLAN Obtain 12-lead ECG, obtain echocardiogram, Start aspirin, Lipitor 40 mg daily Continue IV heparin drip Further recommendations about surgical risk to be determined based on echo and ECG Past Medical History Past Medical History: No Reported History History of Any Multi-Drug Resistant Organisms: None Reported Past Surgical History: Cholecystectomy, Hernia Repair Past Anesthesia/Blood Transfusion Reactions: No Reported Reaction Past Psychological History: No Psychological Hx Reported Smoking Status: Current every day smoker Past Alcohol Use History: Occasional Additional Past Alcohol Use History / Comment(s): 3-4 beers a day 4x a week Past Drug Use History: None Reported Medications and Allergies Home Medications Medication Instructions Recorded Confirmed Type No Known Home Medications 10/01/23 10/01/23 History Allergies Allergy/AdvReac Type Severity Reaction Status Date / Time No Known Allergies Allergy Verified 10/01/23 16:54 Physical Exam Vitals: Vital Signs Temp Pulse Pulse Resp BP BP BP 10/02/23 18:07 152/88 10/02/23 17:02 98.3 F 69 16 173/105 10/02/23 11:27 98.0 F 62 16 141/91 10/02/23 08:57 97.9 F 60 16 190/96 10/02/23 06:36 97.9 F 60 16 190/90 10/02/23 06:12 97.4 F L 57 L 18 204/97 10/02/23 03:14 97.8 F 61 18 192/95 10/01/23 23:25 97.7 F 61 18 173/112 10/01/23 20:36 83 10/01/23 20:35 18 173/102 Pulse Ox 10/02/23 18:07 10/02/23 17:02 98 10/02/23 11:27 99 10/02/23 08:57 97 10/02/23 06:36 99 10/02/23 06:12 98 10/02/23 03:14 99 10/01/23 23:25 98 10/01/23 20:36 10/01/23 20:35 97 Intake and Output 10/02/23 10/02/23 10/02/23 06:59 14:59 22:59 Intake Total 903.918 674.082 118 Output Total 400 1400 950 Balance 503.918 -725.918 -832 Intake: IV 10 Invasive Line 1 10 Intake, IV Titration 123.918 126.082 Amount Heparin Sod,Pork in 0.45% 123.918 126.082 NaCl 25,000 unit In 0.45 % NaCl 1 250ml.bag @ 18 UNITS/KG/HR 15.921 mls/hr IV .[id number] [facility] Rx#: [id number] Oral 780 538 118 Output: Urine 400 1400 950 Other: Voiding Method Urinal Weight 88.451 kg Results 10/02/23 03:11 10/02/23 03:11 Coagulation 10/01/23 10/02/23 Range/Units 23:23 08:44 APTT 61.8 H 44.6 H (22.0-30.0) sec CBC 10/02/23 Range/Units 03:11 WBC 6.9 (3.8-10.6) k/uL RBC 3.93 L (4.30-5.90) m/uL Hgb 13.5 (13.0-17.5) gm/dL Hct 40.5 (39.0-53.0) % Plt Count 169 (150-450) k/uL Comprehensive Metabolic Panel 10/02/23 Range/Units 03:11 Sodium 131 L (137-145) mmol/L Potassium 4.1 (3.5-5.1) mmol/L Chloride 97 L (98-107) mmol/L Carbon Dioxide 27 (22-30) mmol/L BUN 8 L (9-20) mg/dL Creatinine 0.70 (0.66-1.25) mg/dL Glucose 186 H (74-99) mg/dL Calcium 9.1 (8.4-10.2) mg/dL Current Medications Generic Name Dose Route Start Last Admin Trade Name Freq PRN Reason Stop Dose Admin Aspirin 81 mg 10/02/23 16:45 10/02/23 17:04 Aspirin 81 Mg PO 81 mg DAILY [facility] Administration Atorvastatin Calcium 40 mg 10/02/23 21:00 Atorvastatin 40 Mg Tab PO HS [facility] Famotidine 20 mg 10/02/23 09:30 10/02/23 09:49 Famotidine 20 Mg/2 Ml Vial IV 20 mg Q12HR [facility] Administration Heparin Sodium (Porcine) 0 unit 10/01/23 15:39 Heparin Sodium 1,000 Un/Ml (10ml Vl) IV PER PROTOCOL PRN Low PTT Protocol Hydromorphone HCl 0.5 mg 10/01/23 17:12 10/02/23 14:17 Hydromorphone 0.5 Mg/0.5 Ml Syringe IVP 0.5 mg Q3HR PRN Administration Moderate Pain (Scale 4 to 6) Heparin Sodium/Sodium Chloride 250 mls @ 15.921 mls/hr 10/01/23 15:45 10/02/23 09:47 25,000 unit/ Sodium Chloride IV 18 units/kg/hr .[id number] [facility] 15.921 mls/hr Administration Protocol 18 UNITS/KG/HR Sodium Chloride 1,000 mls @ 75 mls/hr 10/01/23 17:15 10/02/23 17:05 Saline 0.9% IV 75 mls/hr .[id number] [facility] Administration Insulin Aspart 0 unit 10/02/23 12:30 10/02/23 17:05 Insulin Aspart (Novolog) 100 Unit/Ml Vial SQ 2 unit ACHS [facility] Administration Protocol Losartan Potassium 25 mg 10/02/23 16:45 10/02/23 17:04 Losartan 25 Mg Tab PO 25 mg DAILY [facility] Administration Metoprolol Succinate 25 mg 10/02/23 16:45 10/02/23 17:04 Metoprolol Succinate (Er) 25 Mg Tab.Er.24h PO 25 mg DAILY [facility] Administration Naloxone HCl 0.2 mg 10/01/23 17:12 Naloxone 0.4 Mg/Ml 1 Ml Vial IV Q2M PRN Opioid Reversal Ondansetron HCl 4 mg 10/01/23 17:12 Ondansetron 4 Mg/2 Ml Vial IVP Q8HR PRN Nausea And Vomiting Intake and Output 10/02/23 10/02/23 10/02/23 06:59 14:59 22:59 Intake Total 903.918 674.082 118 Output Total 400 1400 950 Balance 503.918 -725.918 -832 Intake: IV 10 Invasive Line 1 10 Intake, IV Titration 123.918 126.082 Amount Heparin Sod,Pork in 0.45% 123.918 126.082 NaCl 25,000 unit In 0.45 % NaCl 1 250ml.bag @ 18 UNITS/KG/HR 15.921 mls/hr IV .[id number] [facility] Rx#: [id number] Oral 780 538 118 Output: Urine 400 1400 950 Other: Voiding Method Urinal Weight 88.451 kg 10/02/23 03:11 10/02/23 03:11
[2023-10-02 20:07] LABS: Glucose,Whole Blood 212 mg/dL (70-110)
[2023-10-02] MEDS: ATORVASTATIN 40 MG TAB PO SCH (20:13)
[2023-10-02] MEDS ORDERED: DEXTROSE 50% SYRINGE 50 ML IVP ONE (23:43)
[2023-10-03] MEDS: HEPARIN SOD,PORK IN 0.45% NACL 25,000 UNIT in 0.45% NACL 1 250ML.BAG IV SCH ×3 (00:01→18:42)
[2023-10-03] MEDS: HYDROmorphone 0.5 MG/0.5 ML SYRINGE IVP PRN ×4 (03:55→21:12)
[2023-10-03 06:02] LABS: Glucose,Whole Blood 238 mg/dL (70-110)
[2023-10-03] MEDS: INSULIN ASPART (NovoLOG) 100 UNIT/ML VIAL SQ SCH ×4 (06:13→20:53)
[2023-10-03] MEDS: LOSARTAN 25 MG TAB PO SCH (09:02)
[2023-10-03] MEDS: FAMOTIDINE 20 MG/2 ML VIAL IV SCH ×2 (09:02→21:12)
[2023-10-03] MEDS: ASPIRIN 81 MG PO SCH (09:02)
[2023-10-03] MEDS: METOPROLOL SUCCINATE (ER) 25 MG TAB.ER.24H PO SCH (09:02)
[2023-10-03] MEDS: SODIUM CHLORIDE 0.9% 1,000 ML IV SCH ×2 (10:23→23:49)
--- NOTE | 2023-10-03 10:55 | P.PN ---
Subjective This is a pleasant 58 years old male with no significant past medical history and he does not follow up with his PCP. Presents because of redness and painful right lower extremity and foot. His problem started 2 days ago as right right foot switch to purple and then after a few more days as dull was gradually Black and its painful so decided to come to the hospital. She denies any change in urine or bowel habits. No fever. No disc disease wea kness or numbness. No dizziness. Patient smokes about half pack per day and I counseled to quit but he declines stating he will slowed down He drinks beer almost every day but over the last week he drank only 2 days because of his foot. No illicit drugs. Patient blood pressure elevated 173/112 Labs including CBC, INR, BMP showed sodium of [address] showing occlusion of the distal right popliteal artery. 10/03/2023 Patient pain in his right foot is controlled, remains on heparin drip No other new complaint Hemodynamically stable, blood pressure 163/94 Cardiology workup is underway, he is currently on metoprolol, losartan and aspirin and Lipitor were added. Continue with normal saline 75 mL/h Patient will require angiogram of the right lower extremity for possible bypass procedure, plus amputation of the big toe Review of systems CONSTITUTIONAL: No fever, no malaise, no fatigue. HEENT: No recent visual problems or hearing problems. Denied any sore throat. CARDIOVASCULAR: No orthopnea, PND, no palpitations, no syncope. PULMONARY: No shortness of breath, no cough, no hemoptysis. GASTROINTESTINAL: No diarrhea, no nausea, no vomiting, no abdominal pain. Normoactive bowel sounds. NEUROLOGICAL: No headaches, no weakness, no numbness. Active Medications Generic Name Dose Route Start Last Admin Trade Name Bahmanq PRN Reason Stop Dose Admin Aspirin 81 mg 10/02/23 16:45 10/03/23 09:02 Aspirin 81 Mg PO 81 mg DAILY [facility] Administration Atorvastatin Calcium 40 mg 10/02/23 21:00 10/02/23 20:13 Atorvastatin 40 Mg Tab PO 40 mg HS [facility] Administration Famotidine 20 mg 10/02/23 09:30 10/03/23 09:02 Famotidine 20 Mg/2 Ml Vial IV 20 mg Q12HR [facility] Administration Heparin Sodium (Porcine) 0 unit 10/01/23 15:39 01/01/24 09:02 Heparin Sodium 1,000 Un/Ml (10ml Vl) IV 3,590 unit PER PROTOCOL PRN Administration Low PTT Protocol Hydromorphone HCl 0.5 mg 10/01/23 17:12 10/03/23 09:33 Hydromorphone 0.5 Mg/0.5 Ml Syringe IVP 0.5 mg Q3HR PRN Administration Moderate Pain (Scale 4 to 6) Heparin Sodium/Sodium Chloride 250 mls @ 15.921 mls/hr 10/01/23 15:45 10/03/23 09:05 25,000 unit/ Sodium Chloride IV Infused .[id number] [facility] Titration Protocol 18 UNITS/KG/HR Sodium Chloride 1,000 mls @ 75 mls/hr 10/01/23 17:15 10/03/23 10:23 Saline 0.9% IV Not Given .[id number] [facility] Insulin Aspart 0 unit 10/02/23 12:30 10/03/23 06:13 Insulin Aspart (Novolog) 100 Unit/Ml Vial SQ 4 unit ACHS [facility] Administration Protocol Losartan Potassium 25 mg 10/02/23 16:45 10/03/23 09:02 Losartan 25 Mg Tab PO 25 mg DAILY [facility] Administration Metoprolol Succinate 25 mg 10/02/23 16:45 10/03/23 09:02 Metoprolol Succinate (Er) 25 Mg Tab.Er.24h PO 25 mg DAILY [facility] Administration Naloxone HCl 0.2 mg 10/01/23 17:12 Naloxone 0.4 Mg/Ml 1 Ml Vial IV Q2M PRN Opioid Reversal Ondansetron HCl 4 mg 10/01/23 17:12 Ondansetron 4 Mg/2 Ml Vial IVP Q8HR PRN Nausea And Vomiting Objective - Vital Signs Vital signs: Vital Signs Temp 98.0 F 10/03/23 08:00 Pulse 70 10/03/23 08:00 Resp 16 10/03/23 08:00 BP 163/94 10/03/23 08:00 Pulse Ox 99 10/03/23 08:00 FiO2 Intake & Output 10/02/23 10/03/23 10/03/23 18:59 06:59 18:59 Intake Total 792.082 540 370 Output Total 2350 200 Balance -1557.918 340 370 Intake: IV 10 Invasive Line 1 10 Intake, IV Titration 126.082 250 Amount Heparin Sod,Pork in 0.45% 126.082 250 NaCl 25,000 unit In 0.45 % NaCl 1 250ml.bag @ 18 UNITS/KG/HR 15.921 mls/hr IV .[id number] [facility] Rx#: [id number] Oral 656 540 120 Output: Urine 2350 200 Other: Voiding Method Urinal Urinal Urinal # Voids 3 - Exam GENERAL: The patient is alert and oriented x3, not in any acute distress. Well developed, well nourished. HEENT: Pupils are round and equally reacting to light. EOMI. No scleral icterus. No conjunctival pallor. Normocephalic, atraumatic. No pharyngeal erythema. No thyromegaly. CARDIOVASCULAR: S1 and S2 present. No murmurs, rubs, or gallops. PULMONARY: Chest is clear to auscultation, no wheezing , no crackles. ABDOMEN: Soft, nontender, nondistended, normoactive bowel sounds. No palpable organomegaly. MUSCULOSKELETAL: No joint swelling or deformity. EXTREMITIES: No cyanosis, clubbing, or pedal edema. NEUROLOGICAL: Gross neurological examination did not reveal any focal deficits. SKIN: No rashes. no petechiae. 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 non- adherence with his medical management, does not follow up with PCP Plan: Continue with heparin drip Continue with normal saline Continue with metoprolol, losartan, aspirin and Lipitor Check echocardiogram cardiology team consult for preop evaluation From a medical perspective there is no contraindication to proceed from surgery however patient will be at some risk from this procedure. Pending director sports for evaluation Labs and medication were reviewed.. Continue same treatment. Continue with symptomatic treatment. Resume home medication. Monitor labs and vitals. DVT and GI prophylaxis. Further recommendations as per clinical course of the patient DVT prophylaxis: heparin GI Prophylaxis: Pepcid PT/OT: Pending Prognosis is guarded
[2023-10-03] MEDS: NICOTINE 14MG/24HR PATCH TRANSDERM SCH (11:07)
[2023-10-03] MEDS ORDERED: NICOTINE 21MG/24HR PATCH TRANSDERM SCH (11:30)
[2023-10-03] MEDS ORDERED: LORazepam 2 MG/ML INJ IV PRN (11:30)
[2023-10-03] MEDS ORDERED: THIAMINE 100 MG/ML 2 ML VIAL IM STA (11:30)
[2023-10-03 11:33] LABS: Glucose,Whole Blood 198 mg/dL (70-110)
[2023-10-03] MEDS: HYDROcodone/APAP 5-325MG 1 EACH TAB PO PRN ×2 (12:17→23:44)
--- NOTE | 2023-10-03 13:56 | P.PN ---
Subjective Progress Note Date: 10/03/23 Progress note Patient is seen and examined with the same. Blood pressure 194/99. Heart rate 70 beats a minute Patient denies any active chest pain chest pressure. He reports his leg pain is stable HISTORY OF PRESENTING ILLNESS 58-year-old male with no significant past medical history who has not seen any physician in recent past presented because of redness and pain in his right lower extremity. On examination he was found to have a dry gangrene involving his right great toe. He also has poor pulses and right lower extremity. There is a possible concern of popliteal artery stenosis and he is planned for vascular procedure including peripheral angiogram and possible bypass surgery and toe amputation Cardiology was consulted for perioperative cardiac risk assessment. Patient denies having any symptoms of chest pain chest pressure palpitations lightheadedness or dizziness. He denies any exertional shortness of breath or exertional chest pain. He reports that prior to his leg pain he was able to walk significant amount without any limitations. He has not had any cardiac procedures in the past. He is a smoker smokes 1 pack per day. He drinks 3-4 times per week 4-5 beers. He denies any significant drug use. He reports occasional marijuana use REVIEW OF SYSTEMS 14 point review of system is negative except what is mentioned above in HPI. PHYSICAL EXAMINATION Vital signs reviewed. Head: Normocephalic. Eyes: Sclerae nonicteric. Neck: Brisk carotid upstroke, no jugular venous distention. Lungs: Clear to auscultation. Heart: Regular rate and rhythm, S1-S2, no S3, no murmur or rub. Abdomen: Soft nontender, positive bowel sounds no organomegaly. Extremities: No edema, intact distal pulses. Neuro: Alert, oritented, no focal deficits ASSESSMENT Perioperative cardiac risk assessment for toe amputation and possible fem-pop bypass right side Uncontrolled hypertension Rt great toe gangrene Acute limb ischemia Rt Popliteal artery stenosis Tobacco use 1 pack per day Alcohol use Occasional marijuana use CT showed occlusion of distal right popliteal artery PLAN Obtain 12-lead ECG, obtain echocardiogram, Continue aspirin, Lipitor 40 mg daily Continue metoprolol 25 mg daily, losartan 25 mg daily. Add amlodipine 5 mg daily Continue IV heparin drip Further recommendations about surgical risk to be determined based on echo and ECG Objective - Vital Signs Vital signs: Vital Signs Temp 98.1 F 10/03/23 11:32 Pulse 59 L 10/03/23 11:32 Resp 16 10/03/23 11:32 BP 194/99 10/03/23 11:32 Pulse Ox 98 10/03/23 11:32 FiO2 Intake & Output 10/02/23 10/03/23 10/03/23 18:59 06:59 18:59 Intake Total 792.082 540 490 Output Total 2350 200 Balance -1557.918 340 490 Intake: IV 10 Invasive Line 1 10 Intake, IV Titration 126.082 250 Amount Heparin Sod,Pork in 0.45% 126.082 250 NaCl 25,000 unit In 0.45 % NaCl 1 250ml.bag @ 18 UNITS/KG/HR 15.921 mls/hr IV .[id number] [facility] Rx#: [id number] Oral 656 540 240 Output: Urine 2350 200 Other: Voiding Method Urinal Urinal Urinal # Voids 3 1 - Labs CBC & Chem 7: 10/02/23 03:11 10/02/23 03:11 Labs: Abnormal Lab Results - Last 24 Hours (Table) 10/02/23 10/02/23 10/03/23 Range/Units 16:34 20:05 05:56 APTT (22.0-30.0) sec POC Glucose (mg/dL) 204 H 212 H 238 H (70-110) mg/dL 10/03/23 10/03/23 Range/Units 07:46 11:31 APTT 35.9 H (22.0-30.0) sec POC Glucose (mg/dL) 198 H (70-110) mg/dL Microbiology - Last 24 Hours (Table) 10/01/23 13:50 Blood Culture - Preliminary Blood 10/01/23 13:35 Blood Culture - Preliminary Blood
[2023-10-03] MEDS: amLODIPine 5 MG TAB PO SCH (14:53)
[2023-10-03 16:31] LABS: Glucose,Whole Blood 232 mg/dL (70-110)
--- NOTE | 2023-10-03 17:01 | CA ---
Transthoracic Echo Report Name: Polo Catragena Age: 58 Gender: M : 1965 Exam Date: 10/03/2023 12:36 Exam Location: [place] [facility] Ht (in): 72 Wt (lb): 195 Ordering Physician: Zeus Piedra MD Attending/Referring Phys: [id number], Dorothea News Clerk Autumn Winchester, [facility] Procedure CPT: Indications: Rule out heart disease Cardiac Hx: Technical Quality: Fair Contrast 1: Total Dose (mL): Contrast 2: Total Dose (mL): MEASUREMENTS (Male / Female) Normal Values 2D ECHO LV Diastolic Diameter PLAX 4.4 cm 4.2 - 5.9 / 3.9 - 5.3 cm LV Systolic Diameter PLAX 2.9 cm IVS Diastolic Thickness 1.5 cm 0.6 - 1.0 / 0.6 - 0.9 cm LVPW Diastolic Thickness 1.4 cm 0.6 - 1.0 / 0.6 - 0.9 cm LV Relative Wall Thickness 0.7 RV Internal Dim ED PLAX 3.5 cm LA Systolic Diameter LX 3.8 cm 3.0 - 4.0 / 2.7 - 3.8 cm LV Diastolic Volume MOD BP 90.3 cm??? 67 - 155 / 56 - 104 cm??? LV Systolic Volume MOD BP 43.1 cm??? - 58 / 19 - 49 cm??? LV Ejection Fraction MOD BP 52.2 % >= 55 % LV Cardiac Index MOD BP 1238.9 cm???/min???m??? LV Diastolic Volume MOD 4C 84.8 cm??? LV Systolic Volume MOD 4C 43.7 cm??? LV Ejection Fraction MOD 4C 48.4 % LV Cardiac Index MOD 4C 1079.1 cm???/min???m??? LV Diastolic Length 4C 8.6 cm LV Systolic Length 4C 7.8 cm LV Diastolic Volume MOD 2C 96.3 cm??? LV Systolic Volume MOD 2C 42.8 cm??? LV Ejection Fraction MOD 2C 55.5 % LV Cardiac Index MOD 2C 1404.2 cm???/min???m??? LV Diastolic Length 2C 8.7 cm LV Systolic Length 2C 8.0 cm LA Volume 66.9 cm??? 18 - 58 / 22 - 52 cm??? LA Volume Index 31.4 cm???/m??? 16 - 28 cm???/m??? M-MODE Aortic Root Diameter MM 3.5 cm MV E Point Septal Separation 0.4 cm AV Cusp Separation MM 2.4 cm DOPPLER AV Peak Velocity 135.5 cm/s AV Peak Gradient 7.3 mmHg MV Area PHT 2.9 cm??? Mitral E Point Velocity 75.6 cm/s Mitral A Point Velocity 82.8 cm/s Mitral E to A Ratio 0.9 MV Deceleration Time 259.6 ms MV E' Velocity 4.0 cm/s Mitral E to MV E' Ratio 19.1 TR Peak Velocity 210.4 cm/s TR Peak Gradient 17.7 mmHg Right Ventricular Systolic Press 22.0 mmHg FINDINGS Left Ventricle Left ventricular ejection fraction is estimated at 45-50 %. Left ventricular cavity size normal. Moderate concentric LVH. No obvious regional wall motion abnormality Right Ventricle RV is not well visualized but does not appear dilated. Normal systolic function Right Atrium Normal right atrial size. Left Atrium Mildly increased left atrial volume. Mitral Valve Structurally normal mitral valve. No mitral stenosis, regurgitation or prolapse. Aortic Valve Trileaflet aortic valve. No aortic valve stenosis or regurgitation. Tricuspid Valve Structurally normal tricuspid valve. Mild tricuspid regurgitation. Pulmonic Valve Structurally normal pulmonic valve. No pulmonic regurgitation. Pericardium No pericardial effusion. Aorta Normal size aortic root and proximal ascending aorta. CONCLUSIONS Left ventricular ejection fraction is estimated at 45-50 %. Moderate concentric LVH. No obvious regional wall motion abnormality. Normal LV size and systolic function Mild left atrial dilatation No significant valvular dysfunction Previewed by: Dr Junior Rosa (Electronically Signed) Final Date: 03 October 2023 17:00
[2023-10-03 20:16] LABS: Glucose,Whole Blood 130 mg/dL (70-110)
[2023-10-03] MEDS: ATORVASTATIN 40 MG TAB PO SCH (21:12)
[2023-10-04] MEDS: HYDROmorphone 0.5 MG/0.5 ML SYRINGE IVP PRN ×2 (03:18→21:26)
[2023-10-04 05:57] LABS: Glucose,Whole Blood 155 mg/dL (70-110)
[2023-10-04] MEDS: INSULIN ASPART (NovoLOG) 100 UNIT/ML VIAL SQ SCH ×4 (06:02→21:35)
[2023-10-04] MEDS: METOPROLOL SUCCINATE (ER) 25 MG TAB.ER.24H PO SCH (08:08)
[2023-10-04] MEDS: ASPIRIN 81 MG PO SCH (08:08)
[2023-10-04] MEDS: LOSARTAN 25 MG TAB PO SCH ×3 (08:08→21:25)
[2023-10-04] MEDS: THIAMINE 100 MG TAB PO SCH (08:08)
[2023-10-04] MEDS: amLODIPine 5 MG TAB PO SCH (08:08)
[2023-10-04] MEDS: NICOTINE 14MG/24HR PATCH TRANSDERM SCH (08:09)
[2023-10-04] MEDS: FAMOTIDINE 20 MG/2 ML VIAL IV SCH ×2 (08:09→21:25)
[2023-10-04] MEDS: LORazepam 2 MG/ML INJ IV PRN ×2 (08:25→11:39)
[2023-10-04] MEDS ORDERED: NICOTINE 14MG/24HR PATCH TRANSDERM SCH (09:00)
[2023-10-04] MEDS: carvediloL 6.25 MG TAB PO SCH ×2 (10:21→16:23)
[2023-10-04] MEDS: HEPARIN SOD,PORK IN 0.45% NACL 25,000 UNIT in 0.45% NACL 1 250ML.BAG IV SCH (10:22)
[2023-10-04] MEDS: SODIUM CHLORIDE 0.9% 1,000 ML IV SCH ×2 (10:24→23:25)
[2023-10-04 11:43] LABS: Glucose,Whole Blood 158 mg/dL (70-110)
--- NOTE | 2023-10-04 12:43 | P.PN ---
Subjective Progress Note Date: 10/04/23 HISTORY OF PRESENTING ILLNESS 58-year-old male with no significant past medical history who has not seen any physician in recent past presented because of redness and pain in his right lower extremity. On examination he was found to have a dry gangrene involving his right great toe. He also has poor pulses and right lower extremity. There is a possible concern of popliteal artery stenosis and he is planned for vascular procedure including peripheral angiogram and possible bypass surgery and toe amputation Cardiology was consulted for perioperative cardiac risk assessment. Patient denies having any symptoms of chest pain chest pressure palpitations lightheadedness or dizziness. He denies any exertional shortness of breath or exertional chest pain. He reports that prior to his leg pain he was able to walk significant amount without any limitations. He has not had any cardiac procedures in the past. He is a smoker smokes 1 pack per day. He drinks 3-4 times per week 4-5 beers. He denies any significant drug use. He reports occasional marijuana use CT showed occlusion of distal right popliteal artery 1/2 Patient's family members at bedside. They are not aware of time for surgery. He is continued on a heparin drip. Blood pressure remains elevated at 190/85, heart rate in the 50s and 60s. PHYSICAL EXAMINATION Vital signs reviewed. Head: Normocephalic. Eyes: Sclerae nonicteric. Lungs: Clear to auscultation. Heart: Regular rate and rhythm, S1-S2, no S3, no murmur or rub. Extremities: No edema, intact distal pulses. Neuro: Alert, oritented, no focal deficits ASSESSMENT Perioperative cardiac risk assessment for toe amputation and possible fem-pop bypass right side Uncontrolled hypertension Rt great toe gangrene Acute limb ischemia Rt Popliteal artery stenosis Tobacco use 1 pack per day Alcohol use Occasional marijuana use PLAN Continue aspirin, Lipitor 40 mg daily, losartan 25 mg increased frequency to twice daily Continue IV heparin drip Change beta keena to Coreg 6.25 mg twice daily and also discontinue amlodipine Patient is cleared from cardiology for surgical intervention per vascular surgery. Monitor blood pressure closely Nurse practitioner note has been reviewed, I agree with the documented findings and plan of care. Patient was seen and examined. Objective - Vital Signs Vital signs: Vital Signs Temp 97.8 F 10/04/23 03:28 Pulse 62 10/04/23 03:28 Resp 16 10/04/23 03:28 BP 180/99 10/04/23 03:28 Pulse Ox 100 10/04/23 03:28 FiO2 Intake & Output 10/03/23 10/04/23 10/04/23 18:59 06:59 18:59 Intake Total 610 20 Balance 610 20 Intake: IV 20 Invasive Line 2 10 Invasive Line 3 10 Intake, IV Titration 250 Amount Heparin Sod,Pork in 0.45% 250 NaCl 25,000 unit In 0.45 % NaCl 1 250ml.bag @ 18 UNITS/KG/HR 15.921 mls/hr IV .[id number] [facility] Rx#: [id number] Oral 360 Other: Voiding Method Urinal Toilet Urinal # Voids 1 2 - Labs CBC & Chem 7: 10/02/23 03:11 10/02/23 03:11 Labs: Abnormal Lab Results - Last 24 Hours (Table) 10/03/23 10/03/23 10/03/23 Range/Units 11:31 15:14 16:29 APTT 53.9 H (22.0-30.0) sec POC Glucose (mg/dL) 198 H 232 H (70-110) mg/dL 10/03/23 10/04/23 10/04/23 Range/Units 20:15 05:56 07:12 APTT 53.0 H (22.0-30.0) sec POC Glucose (mg/dL) 130 H 155 H (70-110) mg/dL Microbiology - Last 24 Hours (Table) 10/01/23 13:50 Blood Culture - Preliminary Blood 10/01/23 13:35 Blood Culture - Preliminary Blood
[2023-10-04] MEDS: HYDROcodone/APAP 5-325MG 1 EACH TAB PO PRN (16:23)
[2023-10-04 16:35] LABS: Glucose,Whole Blood 126 mg/dL (70-110)
[2023-10-04] MEDS ORDERED: hydrALAZINE HCL 20 MG/ML 1 ML VIAL IVP PRN (18:29)
[2023-10-04] MEDS ORDERED: amLODIPine 5 MG TAB PO SCH (18:30)
[2023-10-04 19:59] LABS: Glucose,Whole Blood 180 mg/dL (70-110)
[2023-10-04] MEDS: ATORVASTATIN 40 MG TAB PO SCH (21:25)
--- NOTE | 2023-10-05 00:19 | P.PN ---
Subjective This is a pleasant 58 years old male with no significant past medical history and he does not follow up with his PCP. Presents because of redness and painful right lower extremity and foot. His problem started 2 days ago as right right foot switch to purple and then after a few more days as dull was gradually Black and its painful so decided to come to the hospital. She denies any change in urine or bowel habits. No fever. No disc disease wea kness or numbness. No dizziness. Patient smokes about half pack per day and I counseled to quit but he declines stating he will slowed down He drinks beer almost every day but over the last week he drank only 2 days because of his foot. No illicit drugs. Patient blood pressure elevated 173/112 Labs including CBC, INR, BMP showed sodium of [address] showing occlusion of the distal right popliteal artery. 10/03/2023 Patient pain in his right foot is controlled, remains on heparin drip No other new complaint Hemodynamically stable, blood pressure 163/94 Cardiology workup is underway, he is currently on metoprolol, losartan and aspirin and Lipitor were added. Continue with normal saline 75 mL/h Patient will require angiogram of the right lower extremity for possible bypass procedure, plus amputation of the big toe 10-04-23 Patient complaining of from pain in his right foot, inspection of the foot looks the same. No chest pain or dyspnea or other new complaint Blood pressure is elevated and revenue stamp cutter on board, blood pressure medication added including coronary sonogram, losartan 25 mg twice daily. Also he is on aspirin 81 mg Continued on heparin drip and normal saline 75 mL/h Today he's developing some alcohol withdrawal symptoms and he was placed on CIWA score protocol vascular surgery on the case and the plan at 4 bypass surgery as well as big toe palpitation Objective - Vital Signs Vital signs: Vital Signs Temp 97.7 F 10/04/23 07:52 Pulse 62 10/04/23 11:46 Resp 16 10/04/23 13:00 BP 167/85 10/04/23 11:46 Pulse Ox 97 10/04/23 11:46 FiO2 Intake & Output 10/03/23 10/04/23 10/04/23 18:59 06:59 18:59 Intake Total 610 20 250 Balance 610 20 250 Intake: IV 20 Invasive Line 2 10 Invasive Line 3 10 Intake, IV Titration 250 250 Amount Heparin Sod,Pork in 0.45% 250 250 NaCl 25,000 unit In 0.45 % NaCl 1 250ml.bag @ 18 UNITS/KG/HR 15.921 mls/hr IV .[id number] COUNT INCLUDES THE [facility] Rx#: [id number] Oral 360 Other: Voiding Method Urinal Toilet Toilet Urinal Urinal # Voids 1 2 3 - Exam GENERAL: The patient is alert and oriented x3, not in any acute distress. Well developed, well nourished. HEENT: Pupils are round and equally reacting to light. EOMI. No scleral icterus. No conjunctival pallor. Normocephalic, atraumatic. No pharyngeal erythema. No thyromegaly. CARDIOVASCULAR: S1 and S2 present. No murmurs, rubs, or gallops. PULMONARY: Chest is clear to auscultation, no wheezing , no crackles. ABDOMEN: Soft, nontender, nondistended, normoactive bowel sounds. No palpable organomegaly. MUSCULOSKELETAL: No joint swelling or deformity. EXTREMITIES: No cyanosis, clubbing, or pedal edema. NEUROLOGICAL: Gross neurological examination did not reveal any focal deficits. SKIN: No rashes. no petechiae. 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 non- adherence with his medical management, does not follow up with PCP Plan: Continue with heparin drip Continue with normal saline Continue with metoprolol, losartan, aspirin and Lipitor Continue Ativan per [facility] protocol cardiology team consult for preop evaluation From a medical perspective there is no contraindication to proceed from surgery however patient will be at some risk from this procedure. Pending revenue stamp cutter for evaluation Labs and medication were reviewed.. Continue same treatment. Continue with symptomatic treatment. Resume home medication. Monitor labs and vitals. DVT and GI prophylaxis. Further recommendations as per clinical course of the patient DVT prophylaxis: heparin GI Prophylaxis: Pepcid PT/OT: Pending Prognosis is guarded
[2023-10-05] MEDS: HYDROmorphone 0.5 MG/0.5 ML SYRINGE IVP PRN ×5 (00:44→19:51)
[2023-10-05] MEDS: HEPARIN SOD,PORK IN 0.45% NACL 25,000 UNIT in 0.45% NACL 1 250ML.BAG IV SCH (03:43)
[2023-10-05] MEDS: HYDROcodone/APAP 5-325MG 1 EACH TAB PO PRN ×4 (03:43→22:30)
[2023-10-05 05:57] LABS: Glucose,Whole Blood 148 mg/dL (70-110)
[2023-10-05] MEDS: INSULIN ASPART (NovoLOG) 100 UNIT/ML VIAL SQ SCH ×4 (06:18→19:53)
[2023-10-05] MEDS: carvediloL 6.25 MG TAB PO SCH ×2 (06:28→16:31)
[2023-10-05 06:35] LABS: Basophils % (A) 1 %; Eosinophils # (A) 0.1 k/uL (0-0.7); Eosinophils % (A) 2 %; HCT 41.4 % (39.0-53.0); HGB 13.6 gm/dL (13.0-17.5); Lymphocytes # (A) 1.3 k/uL (1.0-4.8); Lymphocytes % (A) 27 %; MCH 34.3 pg (25.0-35.0); MCHC 32.8 g/dL (31.0-37.0); MCV 104.5 fL (80.0-100.0); Macrocytosis Slight; Mean Platelet Volume 7.2; Monocytes # (A) 0.3 k/uL (0-1.0); Monocytes % (A) 7 %; Neutrophils # (A) 2.9 k/uL (1.3-7.7); Neutrophils % (A) 61 %; Platelet Count 209 k/uL (150-450); RBC 3.96 m/uL (4.30-5.90); RDW 12.4 % (11.5-15.5); WBC 4.7 k/uL (3.8-10.6)
[2023-10-05 07:01] LABS: African American GFR (CKD) >90 (>60 ml/min/1.73 sqM); Anion Gap 8 mmol/L; Blood Urea Nitrogen 7 mg/dL (9-20); Calcium 9.3 mg/dL (8.4-10.2); Carbon Dioxide 24 mmol/L (22-30); Chloride 100 mmol/L (98-107); Glucose 137 mg/dL (74-99); Non-African American GFR(CKD) >90 (>60 ml/min/1.73 sqM); Sodium 132 mmol/L (137-145)
[2023-10-05] MEDS: LOSARTAN 25 MG TAB PO SCH (08:20)
[2023-10-05] MEDS: ASPIRIN 81 MG PO SCH (08:20)
[2023-10-05] MEDS: THIAMINE 100 MG TAB PO SCH (08:20)
[2023-10-05] MEDS: NICOTINE 14MG/24HR PATCH TRANSDERM SCH (08:20)
[2023-10-05] MEDS: FAMOTIDINE 20 MG/2 ML VIAL IV SCH ×2 (08:20→19:51)
[2023-10-05 11:16] LABS: Glucose,Whole Blood 127 mg/dL (70-110)
[2023-10-05] MEDS ORDERED: IV FLUID CONTINUATION 1,000 ML IV ONE (12:20)
[2023-10-05] MEDS ORDERED: LIDOCAINE 1% INJ 10MG/ML (5 ML VIAL-PF) SQ ONE (12:24)
[2023-10-05] MEDS ORDERED: HEPARIN SODIUM 1,000 UN/ML (10ML VL) ONE (12:26)
[2023-10-05] MEDS ORDERED: HEPARIN SODIUM 1,000 UN/ML (10ML VL) MISCELLANE ONE (12:29)
[2023-10-05] MEDS ORDERED: NITROGLYCERIN 1000MCG/10ML SYRINGE INTRAARTER ONE (12:29)
[2023-10-05] MEDS ORDERED: VERAPAMIL 2.5 MG/ML 2 ML AMP INTRAARTER ONE (12:29)
[2023-10-05] MEDS ORDERED: MIDAZOLAM 2 MG/2 ML VIAL IVP ONE (12:30)
[2023-10-05] MEDS ORDERED: IOPAMIDOL-370 100ML BTL INJ ONE ×2 (12:42)
--- NOTE | 2023-10-05 13:01 | P.OP ---
Date of Procedure: 10/05/23 Description of Procedure: Preoperative diagnosis: Louisa 5 right lower extremity peripheral arterial disease, right toe dry gangrene Postoperative diagnosis: Same Procedure: Ultrasound-guided left radial artery access Second-order Selective placement of catheter in aorta Angiogram with runoffs with interpretation of fluoroscopy Moderate conscious sedation 18 minutes, personal monitoring of certified RN administration with personal hemodynamic monitoring Surgeon: Gertrudis Myers D.O. EBL: Less than 5 mL IV fluids: See records Urine output: Not measured Drains: None Complications: None immediately apparent Condition: Stable Operative indication and findings: Patient is a 58-year-old male with necrotic changes to his toes on the right foot. He is found to have evidence of peripheral arterial disease and likely popliteal occlusion on workup and imaging. He presents today for an angiogram Procedure in detail: Patient was brought to the special suite and placed in supine position. Left upper cavity bilateral groins are prepped and draped in usual sterile fashion. A preprocedure timeout was performed, all parties were in agreement. Using ultrasound, the left radial artery was identified it was found to be pulsatile and free of significant calcific disease. Permanent images stored. Under direct visualization the artery was accessed and Seldinger technique was used to place it was under sheath. Catheters and wires were used and the descending aorta was selected. The catheter was then placed into the descending aorta and an aortogram was performed. Visualized portions of the descending aorta, superior mesenteric artery, celiac artery and bilateral renal arteries appear patent without significant disease. There is no significant atherosclerotic disease in the aorta itself. The bilateral common iliac arteries appear patent without significant disease. There is mild area of stenosis on the left distal common iliac. The external iliac and internal iliac arteries appear patent. The common femoral arteries appear patent bilaterally. On the right residual femoral artery occludes shortly after takeoff. There is a reconstitution at the mid thigh. There is evidence of a patent profunda. The popliteal artery itself appears to fill in retrograde first but there is no evidence of significant disease. The anterior tibial artery is visualized but then occludes shortly after its takeoff. There is no visualization of the TP trunk or peroneal vessel or posterior tibial artery at this level. The posterior tibial artery reconstitutes at the mid calf and is patent to the ankle and into the foot. On the left the common femoral artery appears patent. The superficial femoral artery occludes shortly after it's take off. The profunda appears patent. Proximal popliteal artery/superficial femoral artery reconstitutes just beyond the abductor canal. The popliteal artery appears patent in the left lower extremity. The anterior tibial artery is patent in its takeoff and tibial peroneal trunk, posterior tibial and peroneal arteries are patent at their takeo ff. There is a patent intertibial posterior tibial artery at the ankle on the left. The catheters and wires were then removed. The radial sheath was removed and TR band was placed
[2023-10-05] MEDS: SODIUM CHLORIDE 0.9% 1,000 ML IV SCH ×2 (13:52→19:56)
[2023-10-05] MEDS: VALSARTAN 160 MG TAB PO SCH (13:53)
--- NOTE | 2023-10-05 13:54 | P.PN ---
Subjective Progress Note Date: 10/05/23 HISTORY OF PRESENTING ILLNESS 58-year-old male with no significant past medical history who has not seen any physician in recent past presented because of redness and pain in his right lower extremity. On examination he was found to have a dry gangrene involving his right great toe. He also has poor pulses and right lower extremity. There is a possible concern of popliteal artery stenosis and he is planned for vascular procedure including peripheral angiogram and possible bypass surgery and toe amputation Cardiology was consulted for perioperative cardiac risk assessment. Patient denies having any symptoms of chest pain chest pressure palpitations lightheadedness or dizziness. He denies any exertional shortness of breath or exertional chest pain. He reports that prior to his leg pain he was able to walk significant amount without any limitations. He has not had any cardiac procedures in the past. He is a smoker smokes 1 pack per day. He drinks 3-4 times per week 4-5 beers. He denies any significant drug use. He reports occasional marijuana use CT showed occlusion of distal right popliteal artery 1/2 Patient's family members at bedside. They are not aware of time for surgery. He is continued on a heparin drip. Blood pressure remains elevated at 190/85, heart rate in the 50s and 60s. 1/3 Patient is scheduled for vascular surgery today. The patient's blood pressure readings are elevated. 174/80, heart rate in the 50s and 60s, pulse ox 90% on room air. WBC 4.7, hemoglobin 13.6. Sodium 132, potassium 4, creatinine 0.74, BUN 7. PHYSICAL EXAMINATION Vital signs reviewed. Head: Normocephalic. Eyes: Sclerae nonicteric. Lungs: Clear to auscultation. Heart: Regular rate and rhythm, S1-S2, no S3, no murmur or rub. Extremities: No edema, intact distal pulses. Neuro: Alert, oritented, no focal deficits ASSESSMENT Perioperative cardiac risk assessment for toe amputation and possible fem-pop bypass right side Uncontrolled hypertension Rt great toe gangrene Acute limb ischemia Rt Popliteal artery stenosis Tobacco use 1 pack per day Alcohol use Occasional marijuana use PLAN Continue aspirin, Lipitor 40 mg brian Discontinue losartan and start patient on valsartan 160 mg daily may increase tomorrow if blood pressure readings are still elevated. Continue Coreg 6.25 mg twice daily Patient is cleared from cardiology for surgical intervention per vascular surgery. Monitor blood pressure closely Nurse practitioner note has been reviewed, I agree with the documented findings and plan of care. Patient was seen and examined. Objective - Vital Signs Vital signs: Vital Signs Temp 97.9 F 10/05/23 08:00 Pulse 52 L 10/05/23 08:00 Resp 18 10/05/23 08:00 BP 164/86 10/05/23 08:00 Pulse Ox 98 10/05/23 08:00 FiO2 Intake & Output 10/04/23 10/05/23 10/05/23 18:59 06:59 18:59 Intake Total 370 260 75 Balance 370 260 75 Intake: IV 10 75 Invasive Line 5 10 Intake, IV Titration 250 250 Amount Heparin Sod,Pork in 0.45% 250 250 NaCl 25,000 unit In 0.45 % NaCl 1 250ml.bag @ 18 UNITS/KG/HR 15.921 mls/hr IV .[id number] [facility] Rx#: [id number] Oral 120 Other: Voiding Method Toilet Toilet Urinal # Voids 3 1 - Labs CBC & Chem 7: 10/05/23 06:02 10/05/23 06:02 Labs: Abnormal Lab Results - Last 24 Hours (Table) 10/04/23 10/04/23 10/05/23 Range/Units 16:33 19:57 05:54 RBC (4.30-5.90) m/uL MCV (80.0-100.0) fL APTT (22.0-30.0) sec Sodium (137-145) mmol/L BUN (9-20) mg/dL Glucose (74-99) mg/dL POC Glucose (mg/dL) 126 H 180 H 148 H (70-110) mg/dL 10/05/23 10/05/23 10/05/23 Range/Units 06:02 06:02 06:02 RBC 3.96 L (4.30-5.90) m/uL MCV 104.5 H (80.0-100.0) fL APTT 49.5 H (22.0-30.0) sec Sodium 132 L (137-145) mmol/L BUN 7 L (9-20) mg/dL Glucose 137 H (74-99) mg/dL POC Glucose (mg/dL) (70-110) mg/dL 10/05/23 Range/Units 11:15 RBC (4.30-5.90) m/uL MCV (80.0-100.0) fL APTT (22.0-30.0) sec Sodium (137-145) mmol/L BUN (9-20) mg/dL Glucose (74-99) mg/dL POC Glucose (mg/dL) 127 H (70-110) mg/dL Microbiology - Last 24 Hours (Table) 10/01/23 13:50 Blood Culture - Preliminary Blood 10/01/23 13:35 Blood Culture - Preliminary Blood
[2023-10-05 16:25] LABS: Glucose,Whole Blood 225 mg/dL (70-110)
[2023-10-05] MEDS: ATORVASTATIN 40 MG TAB PO SCH (19:51)
[2023-10-05 19:55] LABS: Glucose,Whole Blood 105 mg/dL (70-110)
--- NOTE | 2023-10-05 21:26 | P.PN ---
Subjective This is a pleasant 58 years old male with no significant past medical history and he does not follow up with his PCP. Presents because of redness and painful right lower extremity and foot. His problem started 2 days ago as right right foot switch to purple and then after a few more days as dull was gradually Black and its painful so decided to come to the hospital. She denies any change in urine or bowel habits. No fever. No disc disease wea kness or numbness. No dizziness. Patient smokes about half pack per day and I counseled to quit but he declines stating he will slowed down He drinks beer almost every day but over the last week he drank only 2 days because of his foot. No illicit drugs. Patient blood pressure elevated 173/112 Labs including CBC, INR, BMP showed sodium of [address] showing occlusion of the distal right popliteal artery. 10/03/2023 Patient pain in his right foot is controlled, remains on heparin drip No other new complaint Hemodynamically stable, blood pressure 163/94 Cardiology workup is underway, he is currently on metoprolol, losartan and aspirin and Lipitor were added. Continue with normal saline 75 mL/h Patient will require angiogram of the right lower extremity for possible bypass procedure, plus amputation of the big toe 10-04-23 Patient complaining of from pain in his right foot, inspection of the foot looks the same. No chest pain or dyspnea or other new complaint Blood pressure is elevated and rate manager on board, blood pressure medication added including coronary sonogram, losartan 25 mg twice daily. Also he is on aspirin 81 mg Continued on heparin drip and normal saline 75 mL/h Today he's developing some alcohol withdrawal symptoms and he was placed on CIWA score protocol vascular surgery on the case and the plan at 4 bypass surgery as well as big toe palpitation 10/05/2023 Patient alert and awake at baseline. Still complaining of from significant pain in his right foot. Right foot discoloration and extension looks the same since admission. Still has dry gangrene of the right great toe. No chest pain. No dyspnea. No other new complaints. Blood pressure is slightly elevated. Cardiology preop evaluation was obtained. Patient continued on aspirin and Lipitor Coreg and valsartan Patient to undergo angiogram to be followed by bypass procedure with vascular surgery team. Objective - Vital Signs Vital signs: Vital Signs Temp 97.9 F 10/05/23 08:00 Pulse 52 L 10/05/23 08:00 Resp 18 10/05/23 08:00 BP 164/86 10/05/23 08:00 Pulse Ox 98 10/05/23 08:00 FiO2 Intake & Output 10/04/23 10/05/23 10/05/23 18:59 06:59 18:59 Intake Total 370 260 75 Balance 370 260 75 Intake: IV 10 75 Invasive Line 5 10 Intake, IV Titration 250 250 Amount Heparin Sod,Pork in 0.45% 250 250 NaCl 25,000 unit In 0.45 % NaCl 1 250ml.bag @ 18 UNITS/KG/HR 15.921 mls/hr IV .[id number] [facility] Rx#: [id number] Oral 120 Other: Voiding Method Toilet Toilet Urinal # Voids 3 1 - Exam GENERAL: The patient is alert and oriented x3, not in any acute distress. Well developed, well nourished. HEENT: Pupils are round and equally reacting to light. EOMI. No scleral icterus. No conjunctival pallor. Normocephalic, atraumatic. No pharyngeal erythema. No thyromegaly. CARDIOVASCULAR: S1 and S2 present. No murmurs, rubs, or gallops. PULMONARY: Chest is clear to auscultation, no wheezing , no crackles. ABDOMEN: Soft, nontender, nondistended, normoactive bowel sounds. No palpable organomegaly. MUSCULOSKELETAL: No joint swelling or deformity. EXTREMITIES: No cyanosis, clubbing, or pedal edema. NEUROLOGICAL: Gross neurological examination did not reveal any focal deficits. SKIN: No rashes. no petechiae. - Labs CBC & Chem 7: 10/05/23 06:02 10/05/23 06:02 Labs: Abnormal Lab Results - Last 24 Hours (Table) 10/04/23 10/04/23 10/05/23 Range/Units 16:33 19:57 05:54 RBC (4.30-5.90) m/uL MCV (80.0-100.0) fL APTT (22.0-30.0) sec Sodium (137-145) mmol/L BUN (9-20) mg/dL Glucose (74-99) mg/dL POC Glucose (mg/dL) 126 H 180 H 148 H (70-110) mg/dL 10/05/23 10/05/23 10/05/23 Range/Units 06:02 06:02 06:02 RBC 3.96 L (4.30-5.90) m/uL MCV 104.5 H (80.0-100.0) fL APTT 49.5 H (22.0-30.0) sec Sodium 132 L (137-145) mmol/L BUN 7 L (9-20) mg/dL Glucose 137 H (74-99) mg/dL POC Glucose (mg/dL) (70-110) mg/dL 10/05/23 Range/Units 11:15 RBC (4.30-5.90) m/uL MCV (80.0-100.0) fL APTT (22.0-30.0) sec Sodium (137-145) mmol/L BUN (9-20) mg/dL Glucose (74-99) mg/dL POC Glucose (mg/dL) 127 H (70-110) mg/dL Microbiology - Last 24 Hours (Table) 10/01/23 13:50 Blood Culture - Preliminary Blood 10/01/23 13:35 Blood Culture - Preliminary Blood Assessment and Plan Assessment: Right lower extremity and foot ischemia secondary to 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 non- adherence with his medical management, does not follow up with PCP Plan: Patient to undergo angiogram to be followed by bypass procedure with vascular surgery team. Continue with metoprolol, valsartan aspirin and Lipitor Continue Ativan per [facility] protocol cardiology team consult for preop evaluation From a medical perspective there is no contraindication to proceed from surgery however patient will be at some risk from this procedure. Labs and medication were reviewed.. Continue same treatment. Continue with symptomatic treatment. Resume home medication. Monitor labs and vitals. DVT and GI prophylaxis. Further recommendations as per clinical course of the patient DVT prophylaxis: heparin GI Prophylaxis: Pepcid PT/OT: Pending Prognosis is guarded
[2023-10-06 06:14] LABS: Glucose,Whole Blood 250 mg/dL (70-110)
[2023-10-06] MEDS: carvediloL 6.25 MG TAB PO SCH ×2 (06:22→17:02)
[2023-10-06] MEDS: INSULIN ASPART (NovoLOG) 100 UNIT/ML VIAL SQ SCH ×4 (06:22→21:02)
[2023-10-06] MEDS: HEPARIN SOD,PORK IN 0.45% NACL 25,000 UNIT in 0.45% NACL 1 250ML.BAG IV SCH (06:22)
[2023-10-06] MEDS: HYDROmorphone 0.5 MG/0.5 ML SYRINGE IVP PRN ×3 (06:28→21:12)
[2023-10-06] MEDS: HYDROcodone/APAP 5-325MG 1 EACH TAB PO PRN ×2 (08:33→17:02)
[2023-10-06] MEDS: ASPIRIN 81 MG PO SCH (08:34)
[2023-10-06] MEDS: THIAMINE 100 MG TAB PO SCH (08:34)
[2023-10-06] MEDS: VALSARTAN 160 MG TAB PO SCH (08:34)
[2023-10-06] MEDS: NICOTINE 14MG/24HR PATCH TRANSDERM SCH (08:34)
[2023-10-06] MEDS: SODIUM CHLORIDE 0.9% 1,000 ML IV SCH ×2 (08:42→21:13)
[2023-10-06] MEDS: FAMOTIDINE 20 MG/2 ML VIAL IV SCH ×2 (08:43→21:02)
[2023-10-06 11:30] LABS: Glucose,Whole Blood 163 mg/dL (70-110)
[2023-10-06] MEDS ORDERED: NIFEdipine XL 30 MG TAB.ER.24 PO SCH (12:00)
--- NOTE | 2023-10-06 12:17 | P.PN ---
Subjective Progress Note Date: 10/06/23 HISTORY OF PRESENTING ILLNESS 58-year-old male with no significant past medical history who has not seen any physician in recent past presented because of redness and pain in his right lower extremity. On examination he was found to have a dry gangrene involving his right great toe. He also has poor pulses and right lower extremity. There is a possible concern of popliteal artery stenosis and he is planned for vascular procedure including peripheral angiogram and possible bypass surgery and toe amputation Cardiology was consulted for perioperative cardiac risk assessment. Patient denies having any symptoms of chest pain chest pressure palpitations lightheadedness or dizziness. He denies any exertional shortness of breath or exertional chest pain. He reports that prior to his leg pain he was able to walk significant amount without any limitations. He has not had any cardiac procedures in the past. He is a smoker smokes 1 pack per day. He drinks 3-4 times per week 4-5 beers. He denies any significant drug use. He reports occasional marijuana use CT showed occlusion of distal right popliteal artery 1/2 Patient's family members at bedside. They are not aware of time for surgery. He is continued on a heparin drip. Blood pressure remains elevated at 190/85, heart rate in the 50s and 60s. 1/3 Patient is scheduled for vascular surgery today. The patient's blood pressure readings are elevated. 174/80, heart rate in the 50s and 60s, pulse ox 90% on room air. WBC 4.7, hemoglobin 13.6. Sodium 132, potassium 4, creatinine 0.74, BUN 7. 1/4 Yesterday, patient underwent angiogram with runoffs on the right lower extremity. He is scheduled tomorrow for left lower extremity angiogram. BP readings remain elevated. PRN hydralazine was discontinued yesterday. Losartan and was transitioned to valsartan yesterday. Heart rate is in the 50s and 60s, blood pressure 170/85, pulse ox 96% on room air. PHYSICAL EXAMINATION Vital signs reviewed. Head: Normocephalic. Eyes: Sclerae nonicteric. Lungs: Clear to auscultation. Heart: Regular rate and rhythm, S1-S2, no S3, no murmur or rub. Extremities: No edema, intact distal pulses. Neuro: Alert, oritented, no focal deficits ASSESSMENT Perioperative cardiac risk assessment for toe amputation and possible fem-pop bypass right side Uncontrolled hypertension Rt great toe gangrene Acute limb ischemia Rt Popliteal artery stenosis Tobacco use 1 pack per day Alcohol use Occasional marijuana use PLAN Continue aspirin, Lipitor 40 mg daily Lipitor Continue valsartan 160 mg daily Add Procardia LX 30 mg at noon Continue Coreg 6.25 mg twice daily Monitor blood pressure closely Heparin to be managed by vascular surgery Patient is cleared from cardiology for surgical intervention per vascular surgery. Nurse practitioner note has been reviewed, I agree with the documented findings and plan of care. Patient was seen and examined. Objective - Vital Signs Vital signs: Vital Signs Temp 98.3 F 10/06/23 08:16 Pulse 63 10/06/23 08:16 Resp 18 10/06/23 08:16 BP 162/84 10/06/23 08:16 Pulse Ox 99 10/06/23 08:16 FiO2 Intake & Output 10/05/23 10/06/23 10/06/23 18:59 06:59 18:59 Intake Total 443 10 Balance 443 10 Intake: IV 75 10 Invasive Line 5 10 Intake, IV Titration 250 Amount Heparin Sod,Pork in 0.45% 250 NaCl 25,000 unit In 0.45 % NaCl 1 250ml.bag @ 18 UNITS/KG/HR 15.921 mls/hr IV .[id number] [facility] Rx#: [id number] Oral 118 Other: Voiding Method Toilet # Voids 1 2 - Labs CBC & Chem 7: 10/05/23 06:02 10/05/23 06:02 Labs: Abnormal Lab Results - Last 24 Hours (Table) 10/05/23 10/05/23 10/06/23 Range/Units 11:15 16:24 06:12 APTT (22.0-30.0) sec POC Glucose (mg/dL) 127 H 225 H 250 H (70-110) mg/dL 10/06/23 Range/Units 06:58 APTT 54.3 H (22.0-30.0) sec POC Glucose (mg/dL) (70-110) mg/dL Microbiology - Last 24 Hours (Table) 10/01/23 13:50 Blood Culture - Preliminary Blood 10/01/23 13:35 Blood Culture - Preliminary Blood
--- NOTE | 2023-10-06 13:09 | P.PN ---
Subjective Progress Note Date: 10/06/23 Principal diagnosis: Gangrene right great toe, peripheral arterial disease Patient seen and examined today as a follow-up. He was sitting up in the recliner eating breakfast. He is without any acute changes through the night no new complaints. Yesterday he underwent angiogram with lower extremity runoff with findings of disease in the right lower extremity. Plan for right lower extremity atherectomy tomorrow. Objective - Vital Signs Vital signs: Vital Signs Temp 98.0 F 10/06/23 12:20 Pulse 59 L 10/06/23 12:20 Resp 16 10/06/23 12:20 BP 153/85 10/06/23 12:20 Pulse Ox 99 10/06/23 12:20 FiO2 Intake & Output 10/05/23 10/06/23 10/06/23 18:59 06:59 18:59 Intake Total 443 10 Balance 443 10 Intake: IV 75 10 Invasive Line 5 10 Intake, IV Titration 250 Amount Heparin Sod,Pork in 0.45% 250 NaCl 25,000 unit In 0.45 % NaCl 1 250ml.bag @ 18 UNITS/KG/HR 15.921 mls/hr IV .[id number] [facility] Rx#: [id number] Oral 118 Other: Voiding Method Toilet Toilet # Voids 1 2 - Exam General appearance: The patient is alert, oriented, appears in no acute distress. HET: Head is normocephalic and atraumatic. Pupils are equal and reactive. Neck: Supple. Abdomen: Soft, nondistended. Extremities: Right foot with erythema, eschar to dorsal aspect of right buttock as well as dry gangrene right great toe. Palpable femoral pulses bilaterally. Neurological: No focal deficits. - Labs CBC & Chem 7: 10/05/23 06:02 10/05/23 06:02 Labs: Abnormal Lab Results - Last 24 Hours (Table) 10/05/23 10/06/23 10/06/23 Range/Units 16:24 06:12 06:58 APTT 54.3 H (22.0-30.0) sec POC Glucose (mg/dL) 225 H 250 H (70-110) mg/dL 10/06/23 Range/Units 11:29 APTT (22.0-30.0) sec POC Glucose (mg/dL) 163 H (70-110) mg/dL Microbiology - Last 24 Hours (Table) 10/01/23 13:50 Blood Culture - Preliminary Blood 10/01/23 13:35 Blood Culture - Preliminary Blood Assessment and Plan Assessment: 1. [place] 5 right lower extremity peripheral arterial disease 2. Right toe dry gangrene 3. Right popliteal artery occlusion 4. Right foot wound 5. Tobacco abuse Plan: 1. Recommend smoking cessation 2. Nothing by mouth after midnight 3. Stop heparin off 6 hours prior to procedure 4. Patient scheduled for right lower extremity angiogram with intervention 5. Patient has been cleared from cardiology for surgical intervention Thank you for this consultation, we will continue to follow. The impression and plan of care has been dictated as directed. I performed a history and examination of this patient, discussed the same with the dictator. I agree with the dictator's note ,documented as a scribe. Any ad ditional findings or plans will be noted.
--- NOTE | 2023-10-06 15:12 | P.PN ---
Subjective Progress Note Date: 10/06/23 Patient is evaluated today resting in bed. He is having pain mostly to the right foot describes as a burning like sensation. He is noted to have blackened great toe and blackened area on the dorsal surface. He is continued on IV heparin for the right popliteal artery occlusion and planned to undergo angiogram and intervention tomorrow for the occlusion. Tentatively going for great toe amputation this admission possibly tuesday vs. outpatient. He continues on ativan CIWA with no reports of symptoms of withdrawal overnight. Currently CBG in the 160-200s range. Review of Systems Constitutional: Denied any fatigue denied any fever. Cardio vascular: denied any chest pain, palpitations Gastrointestinal: denied any nausea, vomiting, diarrhea Pulmonary: Denied any shortness of breath cough Neurologic denied any new focal deficits All inpatient medications were reviewed and appropriate changes in these medications as dictated in the interval history and assessment and plan. PHYSICAL EXAMINATION: GENERAL: The patient is alert and oriented x3, not in any acute distress. Well developed, well nourished. HEENT: Pupils are round and equally reacting to light. EOMI. No scleral icterus. No conjunctival pallor. Normocephalic, atraumatic. No pharyngeal erythema. No thyromegaly. CARDIOVASCULAR: S1 and S2 present. No murmurs, rubs, or gallops. PULMONARY: Chest is clear to auscultation, no wheezing or crackles. ABDOMEN: Soft, nontender, nondistended, normoactive bowel sounds. No palpable organomegaly. MUSCULOSKELETAL: No joint swelling or deformity. EXTREMITIES: No cyanosis, clubbing, or pedal edema. NEUROLOGICAL: Gross neurological examination did not reveal any focal deficits. SKIN: Blackened right great toe red foot is erythematous with dry gangrene Assessment Right lower extremity and foot ischemia secondary to acute on chronic right popliteal artery occlusion Dry gangrene and cellulitis of the right foot Uncontrolled hypertension with urgency present on admission alcohol withdrawal and alcohol use disorder Hyperglycemia r.o diabetes mellitus Hyponatremia, improving Nicotine dependence Peripheral vascular disease as above. non- adherence with his medical management, does not follow up with PCP GI prophylaxis DVT prophylaxis Full Code Plan Planned to undergo angiogram and intervention tomorrow for the PAD Continue on IV heparin and turn off 6 hours prior to procedure Patient to be NPO after midnight Continue IV fluids and repeat labs in AM to monitor sodium level Patient to continue on ativan CIWA protocol secondary to alcohol withdrawal Cardiology clearance obtained for surgery. Continue accuchecks ACHS and sliding scale insulin and check hemolgobin A1C Reinforce smoking cessation The impression and plan of care has been dictated by Jael Serrano, Nurse Practitioner as directed. Dr. Masoud MD I have performed a history and physical examination and medical decision making of this patient, discussed the same with the dictator, and agree with the dictators assessment and plan as written, documented as a scribe. Based on total visit time, I have performed more than 50% of this visit. Objective - Vital Signs Vital signs: Vital Signs Temp 98.3 F 10/06/23 08:16 Pulse 63 10/06/23 08:16 Resp 18 10/06/23 08:16 BP 162/84 10/06/23 08:16 Pulse Ox 99 10/06/23 08:16 FiO2 Intake & Output 10/05/23 10/06/23 10/06/23 18:59 06:59 18:59 Intake Total 443 10 Balance 443 10 Intake: IV 75 10 Invasive Line 5 10 Intake, IV Titration 250 Amount Heparin Sod,Pork in 0.45% 250 NaCl 25,000 unit In 0.45 % NaCl 1 250ml.bag @ 18 UNITS/KG/HR 15.921 mls/hr IV .[id number] [facility] Rx#: [id number] Oral 118 Other: Voiding Method Toilet # Voids 1 2 - Labs CBC & Chem 7: 10/05/23 06:02 10/05/23 06:02 Labs: Abnormal Lab Results - Last 24 Hours (Table) 10/05/23 10/05/23 10/06/23 Range/Units 11:15 16:24 06:12 APTT (22.0-30.0) sec POC Glucose (mg/dL) 127 H 225 H 250 H (70-110) mg/dL 10/06/23 Range/Units 06:58 APTT 54.3 H (22.0-30.0) sec POC Glucose (mg/dL) (70-110) mg/dL Microbiology - Last 24 Hours (Table) 10/01/23 13:50 Blood Culture - Preliminary Blood 10/01/23 13:35 Blood Culture - Preliminary Blood Assessment and Plan Time with Patient: Less than 30
[2023-10-06 16:23] LABS: Glucose,Whole Blood 158 mg/dL (70-110)
[2023-10-06 19:27] LABS: Glucose,Whole Blood 185 mg/dL (70-110)
[2023-10-06] MEDS: ATORVASTATIN 40 MG TAB PO SCH (21:02)
[2023-10-07] MEDS: HEPARIN SOD,PORK IN 0.45% NACL 25,000 UNIT in 0.45% NACL 1 250ML.BAG IV SCH ×3 (06:00→15:40)
[2023-10-07 06:10] LABS: Glucose,Whole Blood 188 mg/dL (70-110)
[2023-10-07] MEDS: INSULIN ASPART (NovoLOG) 100 UNIT/ML VIAL SQ SCH ×6 (06:34→21:42)
[2023-10-07] MEDS: carvediloL 6.25 MG TAB PO SCH ×2 (06:36→16:53)
[2023-10-07 08:05] LABS: African American GFR (CKD) >90 (>60 ml/min/1.73 sqM); Anion Gap 9 mmol/L; Blood Urea Nitrogen 6 mg/dL (9-20); Calcium 9.6 mg/dL (8.4-10.2); Carbon Dioxide 27 mmol/L (22-30); Chloride 100 mmol/L (98-107); Glucose 188 mg/dL (74-99); Non-African American GFR(CKD) >90 (>60 ml/min/1.73 sqM); Potassium 4.4 mmol/L (3.5-5.1); Sodium 136 mmol/L (137-145)
[2023-10-07] MEDS: THIAMINE 100 MG TAB PO SCH (08:06)
[2023-10-07] MEDS: FAMOTIDINE 20 MG/2 ML VIAL IV SCH ×2 (08:06→21:41)
[2023-10-07] MEDS: SODIUM CHLORIDE 0.9% 1,000 ML IV SCH ×2 (08:06→18:28)
[2023-10-07] MEDS: NICOTINE 14MG/24HR PATCH TRANSDERM SCH ×2 (08:06→08:31)
[2023-10-07] MEDS: VALSARTAN 160 MG TAB PO SCH (08:06)
[2023-10-07] MEDS: HYDROcodone/APAP 5-325MG 1 EACH TAB PO PRN ×2 (08:06→18:27)
[2023-10-07] MEDS: ASPIRIN 81 MG PO SCH (08:06)
[2023-10-07 09:31] VITALS: BMI 26.4
[2023-10-07] MEDS: NIFEdipine XL 30 MG TAB.ER.24 PO SCH (11:26)
[2023-10-07 11:29] LABS: Glucose,Whole Blood 169 mg/dL (70-110)
--- NOTE | 2023-10-07 11:44 | P.PN ---
Subjective Progress Note Date: 10/07/23 HISTORY OF PRESENTING ILLNESS 58-year-old male with no significant past medical history who has not seen any physician in recent past presented because of redness and pain in his right lower extremity. On examination he was found to have a dry gangrene involving his right great toe. He also has poor pulses and right lower extremity. There is a possible concern of popliteal artery stenosis and he is planned for vascular procedure including peripheral angiogram and possible bypass surgery and toe amputation Cardiology was consulted for perioperative cardiac risk assessment. Patient denies having any symptoms of chest pain chest pressure palpitations lightheadedness or dizziness. He denies any exertional shortness of breath or exertional chest pain. He reports that prior to his leg pain he was able to walk significant amount without any limitations. He has not had any cardiac procedures in the past. He is a smoker smokes 1 pack per day. He drinks 3-4 times per week 4-5 beers. He denies any significant drug use. He reports occasional marijuana use CT showed occlusion of distal right popliteal artery 1/2 Patient's family members at bedside. They are not aware of time for surgery. He is continued on a heparin drip. Blood pressure remains elevated at 190/85, heart rate in the 50s and 60s. / Patient is scheduled for vascular surgery today. The patient's blood pressure readings are elevated. 174/80, heart rate in the 50s and 60s, pulse ox 90% on room air. WBC 4.7, hemoglobin 13.6. Sodium 132, potassium 4, creatinine 0.74, BUN 7. 1/4 Yesterday, patient underwent angiogram with runoffs on the right lower extremity. He is scheduled tomorrow for left lower extremity angiogram. BP readings remain elevated. PRN hydralazine was discontinued yesterday. Losartan and was transitioned to valsartan yesterday. Heart rate is in the 50s and 60s, blood pressure 170/85, pulse ox 96% on room air. 10/07 Blood pressure remains elevated but improving. Yesterday we added Procardia 30 mg and continue valsartan and Coreg. Blood pressure 157/85, heart rate is in the 60s and 70s. Creatinine 0.8. PHYSICAL EXAMINATION Vital signs reviewed. Head: Normocephalic. Eyes: Sclerae nonicteric. Lungs: Clear to auscultation. Heart: Regular rate and rhythm, S1-S2, no S3, no murmur or rub. Extremities: No edema, intact distal pulses. Neuro: Alert, oritented, no focal deficits ASSESSMENT Perioperative cardiac risk assessment for toe amputation and possible fem-pop bypass right side Uncontrolled hypertension Rt great toe gangrene Acute limb ischemia Rt Popliteal artery stenosis Tobacco use 1 pack per day Alcohol use Occasional marijuana use PLAN Continue aspirin, Lipitor 40 mg daily Lipitor Continue valsartan 160 mg daily Increase Procardia XL to 60 mg at noon Continue Coreg 6.25 mg twice daily Monitor blood pressure closely Heparin to be managed by vascular surgery Cardiology will sign off this case and follow on an as-needed basis. Please reconsult for any new concerns. Nurse practitioner note has been reviewed, I agree with the documented findings and plan of care. Patient was seen and examined. Objective - Vital Signs Vital signs: Vital Signs Temp 98.0 F 10/07/23 07:55 Pulse 72 10/07/23 07:55 Resp 16 10/07/23 07:55 BP 147/88 10/07/23 07:55 Pulse Ox 97 10/07/23 07:55 FiO2 Intake & Output 10/06/23 10/07/23 10/07/23 18:59 06:59 18:59 Intake Total 118 250 Balance 118 250 Weight 88.451 kg Intake: Intake, IV Titration 250 Amount Heparin Sod,Pork in 0.45% 250 NaCl 25,000 unit In 0.45 % NaCl 1 250ml.bag @ 18 UNITS/KG/HR 15.921 mls/hr IV .[id number] [facility] Rx#: [id number] Oral 118 Other: Voiding Method Toilet Toilet Toilet # Voids 4 1 2 - Labs CBC & Chem 7: 10/05/23 06:02 10/07/23 07:26 Labs: Abnormal Lab Results - Last 24 Hours (Table) 10/06/23 10/06/23 10/06/23 Range/Units 11:29 16:22 19:25 APTT (22.0-30.0) sec Sodium (137-145) mmol/L BUN (9-20) mg/dL Glucose (74-99) mg/dL POC Glucose (mg/dL) 163 H 158 H 185 H (70-110) mg/dL 10/07/23 10/07/23 10/07/23 Range/Units 06:05 07:26 07:26 APTT 32.9 H (22.0-30.0) sec Sodium 136 L (137-145) mmol/L BUN 6 L (9-20) mg/dL Glucose 188 H (74-99) mg/dL POC Glucose (mg/dL) 188 H (70-110) mg/dL
[2023-10-07] MEDS ORDERED: IV FLUID CONTINUATION 1,000 ML IV ONE (12:53)
[2023-10-07] MEDS ORDERED: HEPARIN SODIUM,PORCINE 30 ML 30 ML ONE (13:01)
[2023-10-07] MEDS ORDERED: LIDOCAINE 1% INJ 10MG/ML (20 ML MDV) ONE (13:01)
[2023-10-07] MEDS ORDERED: fentaNYL (PF) 50 MCG/ML 2 ML AMP ONE (13:02)
[2023-10-07] MEDS ORDERED: MIDAZOLAM 2 MG/2 ML VIAL IVP ONE (13:15)
[2023-10-07] MEDS ORDERED: fentaNYL (PF) 50 MCG/ML 2 ML AMP IVP ONE (13:15)
[2023-10-07] MEDS ORDERED: LIDOCAINE 1% INJ 10MG/ML (20 ML MDV) SQ ONE (13:17)
[2023-10-07] MEDS ORDERED: HEPARIN SODIUM 1,000 UN/ML (10ML VL) IV ONE (13:23)
--- NOTE | 2023-10-07 13:35 | P.PN ---
Subjective Progress Note Date: 10/07/23 Patient is evaluated today resting in bed. He is having pain mostly to the right foot describes as a burning like sensation. He is noted to have blackened great toe and blackened area on the dorsal surface. He is continued on IV heparin for the right popliteal artery occlusion and planned to undergo angiogram and intervention tomorrow for the occlusion. Tentatively going for great toe amputation this admission possibly tuesday vs. outpatient. He continues on ativan CIWA with no reports of symptoms of withdrawal overnight. Currently CBG in the 160-200s range. 10/07/2023 Patient is evaluated today scheduled to undergo fem-pop bypass on the right side today. He continues with significant pain to the right lower extremity. On combination of IV dilaudid and oral norco. Patient is being hydrated with normal saline. Cardiology adjusting BP medications, with improvement to the 150s systolic. Sodium up to 136 today. Review of Systems Constitutional: Denied any fatigue denied any fever. Cardio vascular: denied any chest pain, palpitations Gastrointestinal: denied any nausea, vomiting, diarrhea Pulmonary: Denied any shortness of breath cough Neurologic denied any new focal deficits All inpatient medications were reviewed and appropriate changes in these medications as dictated in the interval history and assessment and plan. PHYSICAL EXAMINATION: GENERAL: The patient is alert and oriented x3, not in any acute distress. Well developed, well nourished. HEENT: Pupils are round and equally reacting to light. EOMI. No scleral icterus. No conjunctival pallor. Normocephalic, atraumatic. No pharyngeal erythema. No thyromegaly. CARDIOVASCULAR: S1 and S2 present. No murmurs, rubs, or gallops. PULMONARY: Chest is clear to auscultation, no wheezing or crackles. ABDOMEN: Soft, nontender, nondistended, normoactive bowel sounds. No palpable organomegaly. MUSCULOSKELETAL: No joint swelling or deformity. EXTREMITIES: No cyanosis, clubbing, or pedal edema. NEUROLOGICAL: Gross neurological examination did not reveal any focal deficits. SKIN: Blackened right great toe red foot is erythematous with dry gangrene Assessment Right lower extremity and foot ischemia secondary to acute on chronic right popliteal artery occlusion Dry gangrene and cellulitis of the right foot Uncontrolled hypertension with urgency present on admission alcohol withdrawal and alcohol use disorder Diabetes Mellitus type 2 hemoglobin A1C 7.9 this admission, un diagnosed and untreated prior to this hospital stay. Hyponatremia, improving Nicotine dependence Peripheral vascular disease as above. non- adherence with his medical management, does not follow up with PCP GI prophylaxis DVT prophylaxis Full Code Plan Planned to undergo angiogram and intervention tomorrow for the PAD Continue on IV heparin and turn off 6 hours prior to procedure Continue IV fluids and repeat labs in AM to monitor sodium level Patient to continue on ativan CIWA protocol secondary to alcohol withdrawal Cardiology clearance obtained for surgery. Continue accuchecks ACHS and sliding scale insulin Reinforce smoking cessation The impression and plan of care has been dictated by Jael Serrano, Nurse Practitioner as directed. Dr. Masoud MD I have performed a history and physical examination and medical decision making of this patient, discussed the same with the dictator, and agree with the di ctators assessment and plan as written, documented as a scribe. Based on total visit time, I have performed more than 50% of this visit. Objective - Vital Signs Vital signs: Vital Signs Temp 98.0 F 10/07/23 07:55 Pulse 72 10/07/23 07:55 Resp 16 10/07/23 07:55 BP 147/88 10/07/23 07:55 Pulse Ox 97 10/07/23 07:55 FiO2 Intake & Output 10/06/23 10/07/23 10/07/23 18:59 06:59 18:59 Intake Total 118 250 Balance 118 250 Weight 88.451 kg Intake: Intake, IV Titration 250 Amount Heparin Sod,Pork in 0.45% 250 NaCl 25,000 unit In 0.45 % NaCl 1 250ml.bag @ 18 UNITS/KG/HR 15.921 mls/hr IV .[id number] [facility] Rx#: [id number] Oral 118 Other: Voiding Method Toilet Toilet Toilet # Voids 4 1 2 - Labs CBC & Chem 7: 10/05/23 06:02 10/07/23 07:26 Labs: Abnormal Lab Results - Last 24 Hours (Table) 10/06/23 10/06/23 10/06/23 Range/Units 11:29 16:22 19:25 APTT (22.0-30.0) sec Sodium (137-145) mmol/L BUN (9-20) mg/dL Glucose (74-99) mg/dL POC Glucose (mg/dL) 163 H 158 H 185 H (70-110) mg/dL 10/07/23 10/07/23 10/07/23 Range/Units 06:05 07:26 07:26 APTT 32.9 H (22.0-30.0) sec Sodium 136 L (137-145) mmol/L BUN 6 L (9-20) mg/dL Glucose 188 H (74-99) mg/dL POC Glucose (mg/dL) 188 H (70-110) mg/dL Assessment and Plan Time with Patient: Less than 30
[2023-10-07] MEDS ORDERED: IOPAMIDOL-370 100ML BTL INJ ONE ×2 (14:34→15:02)
[2023-10-07] MEDS ORDERED: NITROGLYCERIN 1000MCG/10ML SYRINGE INTRAARTER ONE (14:45)
[2023-10-07] MEDS ORDERED: CLOPIDOGREL 75 MG TAB ONE (15:07)
[2023-10-07] MEDS ORDERED: CLOPIDOGREL 75 MG TAB PO ONE (15:07)
--- NOTE | 2023-10-07 15:25 | P.OP ---
Description of Procedure: Pre-Op Dx: Right lower extremity critical limb ischemia [place] classification 6, right great toe gangrene, right superficial femoral artery occlusion, anterior and posterior tibial artery occlusion of the takeoff Post-Op Dx: Right lower stomach critical limb ischemia Jes[place] classification 6, right toe gangrene, resolved right superficial femoral artery occlusion, resolved posterior tibial artery occlusion Procedure: 1. Ultrasound guided left common femoral femoral artery access 2. Right lower extremity selective angiogram third order 3. Percutaneous directional atherectomy of right superficial femoral artery with Hawk One device 4. Percutaenous balloon angioplasty with 5 x 200 mm balloon. 5. Percutaneous transluminal stenting of the right superficial femoral artery with 6 x 140 mm Zilver stent 2 6. Percutaneous transluminal balloon angioplasty of the right posterior tibial artery with 2.5 x 80 mm [place] balloon and 3 x 120 mm chocolate balloon 7. Percutaneous closure of left femoral artery with Vascade device Surgeon: Toro Pollard DO Anesthesia: conscious sedation with local x 112 minutes EBL: 30 mL Complications: none Condition: Stable Findings: Occlusion of the right superficial femoral artery and posterior tibial artery prior to intervention. Once completed brisk flow and resolution of the superficial femoral artery occlusion as well as the posterior tibial artery occlusion with one-vessel runoff to the foot Indication for procedure: 58-year-old gentleman who presented to the hospital secondary to acute limb ischemia and pain who underwent angiogram previously which demonstrated occlusion of the right superficial femoral artery with occlusion of the anterior tibial and posterior tibial arteries presents to the [facility] for angiogram to improve the inflow through the superficial femoral a rtery as well as possible revascularization distally in preparation for possible bypass and amputation. Operative narrative: After written and informed consent was obtained the patient all risks, benefits and complications were described patient is brought to the Single Wire [facility] Operator and laid supine position. The area of the left groin was prepped and draped in usual sterile fashion. Timeout was performed in normal fashion. Utilizing ultrasound the left femoral artery was accessed and a 6 F sheath was placed. 035 Glidewire was then placed into the aorta followed by an RBI catheter and the right iliac was accessed in an up and over fashion. Selective angiogram was then obtained of the right lower extremity demonstrating occlusion of the superficial femoral artery and posterior tibial artery as well as the anterior tibial artery distally. Patient was given heparin and followed with ACTs. An 035 Glidewire advantage was then placed in an up and over fashion and the 6 F short sheath was removed and replaced with an up and over 6 F sheath. Selective angiogram was again obtained demonstrating occlusion of the right superficial femoral artery, posterior tibial artery and anterior tibial artery. Utilizing 035 Glidewire and quick cross catheter the lesion was crossed and selective angiogram distally was obtained demonstrating good intraluminal access. Once across a 6mm spider filter was placed and utilizing a 6M Hawk one atherectomy device directional atherectomy was performed with multiple passes. Once completed angiogram was obtained demonstrating improvement of the occluded area. Balloon angioplasty was then performed with a 5 x 200 mm [place] balloon. Once completed there was improved blood flow but still some areas of stenosis as well as after stenotic disease and therefore due to the fact that he has critical limb ischemia and may need amputation as well as distal bypass decision was made to place stents to maintain the patency of the superficial femoral artery. Two Zilver 6 x 140 mm drug-eluting stents were then placed in the superficial femoral artery across the area of stenosis with resolution of the stenosis. Angiogram was then obtained demonstrating good brisk flow through this area and distal angiogram was obtained demonstrating improved blood flow to the tibial peroneal trunk with occlusion of the posterior tibial artery. At that time attempt to cross the posterior tibial artery was made and utilizing an 014 Glidewire advantage the posterior tibial artery was entered and the lesion was crossed. Crossing catheter was placed distal to the lesion and angiogram was obtained demonstrating good intraluminal access. Balloon angioplasty was then performed across the posterior tibial artery lesion with a 2.5 mm x 80 mm [place] balloon and followed by a 3 x 120 mm chocolate balloon. Attempt to revascularize the anterior tibial artery was performed without success there is no area of vessel at the ankle noted.. Patient was given nitro 200 g and final angiogram was performed. Final angiogram demonstrated brisk flow through the superficial femoral artery stents with no residual stenosis. Brisk flow through the posterior tibial artery extending to the foot with one-vessel runoff. All guidewires and catheters were then removed the sheath was removed and replaced with a short 6 F sheath and utilizing a Vascade closure device the access was closed. Pressure was placed for hemostasis. The patient tolerated the procedure well and multiphasic PT signal and was sent to the floor for recovery.
[2023-10-07] MEDS: HYDROmorphone 0.5 MG/0.5 ML SYRINGE IVP PRN ×2 (15:36→21:45)
[2023-10-07 16:27] LABS: Glucose,Whole Blood 162 mg/dL (70-110)
[2023-10-07 20:31] LABS: Glucose,Whole Blood 141 mg/dL (70-110)
[2023-10-07] MEDS: INSULIN DETEMIR (LEVEMIR) 100 UNIT/ML SYR SQ SCH (21:41)
[2023-10-07] MEDS: ATORVASTATIN 40 MG TAB PO SCH (21:41)
[2023-10-08] MEDS: HYDROmorphone 0.5 MG/0.5 ML SYRINGE IVP PRN ×3 (04:19→21:22)
[2023-10-08 06:19] LABS: Glucose,Whole Blood 132 mg/dL (70-110)
[2023-10-08] MEDS: carvediloL 6.25 MG TAB PO SCH ×2 (06:55→16:58)
[2023-10-08] MEDS: HYDROcodone/APAP 5-325MG 1 EACH TAB PO PRN (06:55)
[2023-10-08] MEDS: HEPARIN SOD,PORK IN 0.45% NACL 25,000 UNIT in 0.45% NACL 1 250ML.BAG IV SCH ×2 (06:56→21:35)
[2023-10-08] MEDS: INSULIN ASPART (NovoLOG) 100 UNIT/ML VIAL SQ SCH ×7 (07:30→21:23)
[2023-10-08] MEDS: SODIUM CHLORIDE 0.9% 1,000 ML IV SCH (08:13)
[2023-10-08 08:32] LABS: African American GFR (CKD) >90 (>60 ml/min/1.73 sqM); Anion Gap 9 mmol/L; Blood Urea Nitrogen 5 mg/dL (9-20); Calcium 9.2 mg/dL (8.4-10.2); Carbon Dioxide 25 mmol/L (22-30); Chloride 100 mmol/L (98-107); Glucose 157 mg/dL (74-99); Non-African American GFR(CKD) >90 (>60 ml/min/1.73 sqM); Potassium 3.9 mmol/L (3.5-5.1); Sodium 134 mmol/L (137-145)
[2023-10-08] MEDS: VALSARTAN 160 MG TAB PO SCH (09:32)
[2023-10-08] MEDS: FAMOTIDINE 20 MG/2 ML VIAL IV SCH ×2 (09:32→21:22)
[2023-10-08] MEDS: THIAMINE 100 MG TAB PO SCH (09:32)
[2023-10-08] MEDS: ASPIRIN 81 MG PO SCH (09:32)
[2023-10-08] MEDS: CLOPIDOGREL 75 MG TAB PO SCH (09:32)
[2023-10-08] MEDS: NICOTINE 14MG/24HR PATCH TRANSDERM SCH (09:33)
--- NOTE | 2023-10-08 10:45 | IR ---
EXAMINATION TYPE: IR stent intravas non coronary DATE OF EXAM: 10/07/2023 FLUOROSCOPY RIGHT foot pain, 31.6min fluoro, [id number] image/s document/s the procedure.
[2023-10-08 11:37] LABS: Glucose,Whole Blood 128 mg/dL (70-110)
--- NOTE | 2023-10-08 12:10 | IR ---
EXAMINATION TYPE: IR cvc insert >=5 years DATE OF EXAM: 10/05/2023 FLUOROSCOPY Leg pain, 1.9m/11.3 Gycm2 DAP, lt radial TR. 153 images submitted.
[2023-10-08] MEDS: NIFEdipine XL 30 MG TAB.ER.24 PO SCH (12:13)
--- NOTE | 2023-10-08 15:03 | P.PN ---
Subjective Progress Note Date: 10/08/23 Patient is evaluated today resting in bed. He is having pain mostly to the right foot describes as a burning like sensation. He is noted to have blackened great toe and blackened area on the dorsal surface. He is continued on IV heparin for the right popliteal artery occlusion and planned to undergo angiogram and intervention tomorrow for the occlusion. Tentatively going for great toe amputation this admission possibly tuesday vs. outpatient. He continues on ativan CIWA with no reports of symptoms of withdrawal overnight. Currently CBG in the 160-200s range. 10/07/2023 Patient is evaluated today scheduled to undergo fem-pop bypass on the right side today. He continues with significant pain to the right lower extremity. On combination of IV dilaudid and oral norco. Patient is being hydrated with normal saline. Cardiology adjusting BP medications, with improvement to the 150s systolic. Sodium up to 136 today. 10/08/2023 Patient is evaluated today sitting up in bed. He reports improved pain to the lower extremity. However states that he feels increased numbness and tingling to the foot. He is status post stenting of the right SFA, and balloon angioplasty of the right post tib. Patient is continued on DAP with aspirin 81 mg daily and plavix 75 mg daily. Continues on IV heparin gtt. On nicotine patch. Patient will possibly undergo right great toe amputation on Tuesday. Review of Systems Constitutional: Denied any fatigue denied any fever. Cardio vascular: denied any chest pain, palpitations Gastrointestinal: denied any nausea, vomiting, diarrhea Pulmonary: Denied any shortness of breath cough Neurologic denied any new focal deficits All inpatient medications were reviewed and appropriate changes in these medications as dictated in the interval history and assessment and plan. PHYSICAL EXAMINATION: GENERAL: The patient is alert and oriented x3, not in any acute distress. Well developed, well nourished. HEENT: Pupils are round and equally reacting to light. EOMI. No scleral icterus. No conjunctival pallor. Normocephalic, atraumatic. No pharyngeal erythema. No thyromegaly. CARDIOVASCULAR: S1 and S2 present. No murmurs, rubs, or gallops. PULMONARY: Chest is clear to auscultation, no wheezing or crackles. ABDOMEN: Soft, nontender, nondistended, normoactive bowel sounds. No palpable organomegaly. MUSCULOSKELETAL: No joint swelling or deformity. EXTREMITIES: No cyanosis, clubbing, or pedal edema. NEUROLOGICAL: Gross neurological examination did not reveal any focal deficits. 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 Dry gangrene and cellulitis of the right foot Uncontrolled hypertension with urgency present on admission alcohol withdrawal and alcohol use disorder Diabetes Mellitus type 2 hemoglobin A1C 7.9 this admission, un diagnosed and untreated prior to this hospital stay. Hyponatremia, improving Nicotine dependence Peripheral vascular disease as above. non- adherence with his medical management, does not follow up with PCP GI prophylaxis DVT prophylaxis Full Code Plan Patient on DAP aspirin and plavix for the vascular stent continues on IV heparin. Continue on IV heparin and turn off 6 hours prior to procedure Continue IV fluids and repeat labs in AM to monitor sodium level Patient to continue on ativan CIWA protocol secondary to alcohol withdrawal Cardiology clearance obtained for surgery. Continue accuchecks ACHS and sliding scale insulin Reinforce smoking cessation The impression and plan of care has been dictated by Jael Serrano, Nurse Practitioner as directed. Dr. Masoud MD I have performed a history and physical examination and medical decision making of this patient, discussed the same with the dictator, and agree with the dictators assessment and plan as written, documented as a scribe. Based on total visit time, I have performed more than 50% of this visit. Objective - Vital Signs Vital signs: Vital Signs Temp 98.2 F 10/08/23 04:00 Pulse 62 10/08/23 04:00 Resp 16 10/08/23 04:00 BP 129/60 10/08/23 04:00 Pulse Ox 98 10/08/23 04:00 FiO2 Intake & Output 10/07/23 10/08/23 10/08/23 18:59 06:59 18:59 Intake Total 450 250 480 Output Total 400 Balance 50 250 480 Weight 88.451 kg Intake: IV 200 Intake, IV Titration 250 250 Amount Heparin Sod,Pork in 0.45% 250 250 NaCl 25,000 unit In 0.45 % NaCl 1 250ml.bag @ 18 UNITS/KG/HR 15.921 mls/hr IV .[id number] [facility] Rx#: [id number] Oral 0 480 Output: Urine 400 Other: Voiding Method Toilet Toilet # Voids 2 1 - Labs CBC & Chem 7: 10/05/23 06:02 10/08/23 07:40 Labs: Abnormal Lab Results - Last 24 Hours (Table) 10/07/23 10/07/23 10/07/23 Range/Units 07:26 11:27 16:26 APTT (22.0-30.0) sec Sodium (137-145) mmol/L BUN (9-20) mg/dL Creatinine (0.66-1.25) mg/dL Glucose (74-99) mg/dL POC Glucose (mg/dL) 169 H 162 H (70-110) mg/dL Hemoglobin A1c 7.9 H (<=6.0) % 10/07/23 10/07/23 10/08/23 Range/Units 20:30 21:21 06:18 APTT 56.4 H (22.0-30.0) sec Sodium (137-145) mmol/L BUN (9-20) mg/dL Creatinine (0.66-1.25) mg/dL Glucose (74-99) mg/dL POC Glucose (mg/dL) 141 H 132 H (70-110) mg/dL Hemoglobin A1c (<=6.0) % 10/08/23 Range/Units 07:40 APTT (22.0-30.0) sec Sodium 134 L (137-145) mmol/L BUN 5 L (9-20) mg/dL Creatinine 0.63 L (0.66-1.25) mg/dL Glucose 157 H (74-99) mg/dL POC Glucose (mg/dL) (70-110) mg/dL Hemoglobin A1c (<=6.0) % Microbiology - Last 24 Hours (Table) 10/01/23 13:50 Blood Culture - Final Blood 10/01/23 13:35 Blood Culture - Final Blood Assessment and Plan Time with Patient: Less than 30
[2023-10-08 16:13] LABS: Glucose,Whole Blood 162 mg/dL (70-110)
--- NOTE | 2023-10-08 16:20 | P.PN ---
Subjective Progress Note Date: 10/08/23 Principal diagnosis: right great toe gangrene Seen and examined. Doing well. States foot feels better. Admits to some discomfort at the right thigh. Has been walking today. Denies any fevers, chills, chest pain or shortness of breath. Objective - Vital Signs Vital signs: Vital Signs Temp 98.4 F 10/08/23 12:37 Pulse 57 L 10/08/23 12:37 Resp 16 10/08/23 12:37 BP 146/81 10/08/23 12:37 Pulse Ox 95 10/08/23 12:37 FiO2 Intake & Output 10/07/23 10/08/23 10/08/23 18:59 06:59 18:59 Intake Total 026 217 1198 Output Total 400 Balance 50 250 1080 Weight 88.451 kg Intake: IV 200 Intake, IV Titration 250 250 600 Amount Heparin Sod,Pork in 0.45% 250 250 NaCl 25,000 unit In 0.45 % NaCl 1 250ml.bag @ 18 UNITS/KG/HR 15.921 mls/hr IV .[id number] [facility] Rx#: [id number] Sodium Chloride 0.9% 1, 600 000 ml @ 75 mls/hr IV . [id number] [facility] Rx#:[id number] Oral 0 480 Output: Urine 400 Other: Voiding Method Toilet Toilet # Voids 2 1 - Exam palpable PT pulse on the right. Right great toe with dry gangrene. Capillary refill improved around the toe Eschar noted at the dorsal aspect of the foot. - Constitutional General appearance: Present: average body habitus, cooperative - Labs CBC & Chem 7: 10/05/23 06:02 10/08/23 07:40 Labs: Abnormal Lab Results - Last 24 Hours (Table) 10/07/23 10/07/23 10/07/23 Range/Units 16:26 20:30 21:21 APTT 56.4 H (22.0-30.0) sec Sodium (137-145) mmol/L BUN (9-20) mg/dL Creatinine (0.66-1.25) mg/dL Glucose (74-99) mg/dL POC Glucose (mg/dL) 162 H 141 H (70-110) mg/dL 10/08/23 10/08/23 10/08/23 Range/Units 06:18 07:40 11:35 APTT (22.0-30.0) sec Sodium 134 L (137-145) mmol/L BUN 5 L (9-20) mg/dL Creatinine 0.63 L (0.66-1.25) mg/dL Glucose 157 H (74-99) mg/dL POC Glucose (mg/dL) 132 H 128 H (70-110) mg/dL 10/08/23 Range/Units 16:11 APTT (22.0-30.0) sec Sodium (137-145) mmol/L BUN (9-20) mg/dL Creatinine (0.66-1.25) mg/dL Glucose (74-99) mg/dL POC Glucose (mg/dL) 162 H (70-110) mg/dL Microbiology - Last 24 Hours (Table) 10/01/23 13:50 Blood Culture - Final Blood 10/01/23 13:35 Blood Culture - Final Blood Assessment and Plan Assessment: Right great toe dry gangrene Right lower extremity limb ischemia- chronic Right SFA and [employer] occlusion with revascularization POD 1 right lower extremity revascularization Tobacco abuse Plan: Continue heparin drip this weekend. Will hold Tuesday before amputation then transition to aspirin and plavix or low dose Xarelto
[2023-10-08 20:54] LABS: Glucose,Whole Blood 108 mg/dL (70-110)
[2023-10-08] MEDS: ATORVASTATIN 40 MG TAB PO SCH (21:22)
[2023-10-08] MEDS: INSULIN DETEMIR (LEVEMIR) 100 UNIT/ML SYR SQ SCH (21:22)
[2023-10-09 06:00] LABS: Glucose,Whole Blood 141 mg/dL (70-110)
[2023-10-09] MEDS: INSULIN ASPART (NovoLOG) 100 UNIT/ML VIAL SQ SCH ×7 (06:04→20:41)
[2023-10-09] MEDS: HYDROmorphone 0.5 MG/0.5 ML SYRINGE IVP PRN ×3 (06:07→23:55)
[2023-10-09] MEDS: carvediloL 6.25 MG TAB PO SCH ×2 (07:02→16:27)
[2023-10-09 07:12] LABS: Glucose,Whole Blood 150 mg/dL (70-110)
[2023-10-09] MEDS: CLOPIDOGREL 75 MG TAB PO SCH (09:16)
[2023-10-09] MEDS: THIAMINE 100 MG TAB PO SCH (09:16)
[2023-10-09] MEDS: FAMOTIDINE 20 MG/2 ML VIAL IV SCH ×2 (09:16→19:59)
[2023-10-09] MEDS: ASPIRIN 81 MG PO SCH (09:16)
[2023-10-09] MEDS: NICOTINE 14MG/24HR PATCH TRANSDERM SCH (09:17)
[2023-10-09] MEDS: VALSARTAN 160 MG TAB PO SCH (09:22)
[2023-10-09 11:39] LABS: Glucose,Whole Blood 179 mg/dL (70-110)
[2023-10-09] MEDS: NIFEdipine XL 30 MG TAB.ER.24 PO SCH (12:15)
[2023-10-09] MEDS: HYDROcodone/APAP 5-325MG 1 EACH TAB PO PRN ×2 (12:36→20:58)
--- NOTE | 2023-10-09 13:04 | P.PN ---
Subjective Progress Note Date: 10/09/23 Patient is evaluated today resting in bed. He is having pain mostly to the right foot describes as a burning like sensation. He is noted to have blackened great toe and blackened area on the dorsal surface. He is continued on IV heparin for the right popliteal artery occlusion and planned to undergo angiogram and intervention tomorrow for the occlusion. Tentatively going for great toe amputation this admission possibly tuesday vs. outpatient. He continues on ativan CIWA with no reports of symptoms of withdrawal overnight. Currently CBG in the 160-200s range. 10/07/2023 Patient is evaluated today scheduled to undergo fem-pop bypass on the right side today. He continues with significant pain to the right lower extremity. On combination of IV dilaudid and oral norco. Patient is being hydrated with normal saline. Cardiology adjusting BP medications, with improvement to the 150s systolic. Sodium up to 136 today. 10/08/2023 Patient is evaluated today sitting up in bed. He reports improved pain to the lower extremity. However states that he feels increased numbness and tingling to the foot. He is status post stenting of the right SFA, and balloon angioplasty of the right post tib. Patient is continued on DAP with aspirin 81 mg daily and plavix 75 mg daily. Continues on IV heparin gtt. On nicotine patch. Patient will possibly undergo right great toe amputation on Tuesday. 10/09/2023 Patient is evaluated today. He is status post right SFA stenting, continues on aspirin and plavix. Reports improvement in pain. He is scheduled to undergo right great toe amputation tomorrow and continues on IV heparin. Discussed hemoglobin A1C with patient he has not been diagnosed with diabetes in the past. He will likely need some type of oral agent on discharge likely will start the patient on metformin on discharge and need to provide glucometer. Patient agreeable to this plan. Discussed dietary changes. Review of Systems Constitutional: Denied any fatigue denied any fever. Cardio vascular: denied any chest pain, palpitations Gastrointestinal: denied any nausea, vomiting, diarrhea Pulmonary: Denied any shortness of breath cough Neurologic denied any new focal deficits All inpatient medications were reviewed and appropriate changes in these medications as dictated in the interval history and assessment and plan. PHYSICAL EXAMINATION: GENERAL: The patient is alert and oriented x3, not in any acute distress. Well developed, well nourished. HEENT: Pupils are round and equally reacting to light. EOMI. No scleral icterus. No conjunctival pallor. Normocephalic, atraumatic. No pharyngeal erythema. No thyromegaly. CARDIOVASCULAR: S1 and S2 present. No murmurs, rubs, or gallops. PULMONARY: Chest is clear to auscultation, no wheezing or crackles. ABDOMEN: Soft, nontender, nondistended, normoactive bowel sounds. No palpable organomegaly. MUSCULOSKELETAL: No joint swelling or deformity. EXTREMITIES: No cyanosis, clubbing, or pedal edema. NEUROLOGICAL: Gross neurological examination did not reveal any focal deficits. 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 Dry gangrene and cellulitis of the right foot Uncontrolled hypertension with urgency present on admission alcohol withdrawal and alcohol use disorder Diabetes Mellitus type 2 hemoglobin A1C 7.9 this admission, un diagnosed and untreated prior to this hospital stay. Hyponatremia, improving Nicotine dependence Peripheral vascular disease as above. non- adherence with his medical management, does not follow up with PCP GI prophylaxis DVT prophylaxis Full Code Plan Patient on DAP aspirin and plavix for the vascular stent continues on IV heparin. Continue on IV heparin and turn off 6 hours prior to procedure scheduled to undergo right great toe amputation on Tuesday10/09/2023. D/C fluid levels and repeat labs in the AM. Patient to continue on ativan CIWA protocol secondary to alcohol withdrawal Cardiology clearance obtained for surgery. Continue accuchecks ACHS and sliding scale insulin Reinforce smoking cessation The impression and plan of care has been dictated by Jael Serrano, Nurse Practitioner as directed. Dr. Masoud MD I have performed a history and physical examination and medical decision making of this patient, discussed the same with the dictator, and agree with the dictators assessment and plan as written, documented as a scribe. Based on total visit time, I have performed more than 50% of this visit. Objective - Vital Signs Vital signs: Vital Signs Temp 98.0 F 10/09/23 04:00 Pulse 58 L 10/09/23 04:00 Resp 16 10/09/23 04:00 BP 119/74 10/09/23 04:00 Pulse Ox 99 10/09/23 04:00 FiO2 Intake & Output 01/06/24 01/07/24 01/07/24 18:59 06:59 18:59 Intake Total 1080 790 118 Balance 1080 790 118 Intake: Intake, IV Titration 600 250 Amount Heparin Sod,Pork in 0.45% 250 NaCl 25,000 unit In 0.45 % NaCl 1 250ml.bag @ 18 UNITS/KG/HR 15.921 mls/hr IV .[id number] [facility] Rx#: [id number] Sodium Chloride 0.9% 1, 600 000 ml @ 75 mls/hr IV . [id number] [facility] Rx#:[id number] Oral 480 540 118 Other: Voiding Method Toilet # Voids 2 # Bowel Movements 0 - Labs CBC & Chem 7: 10/05/23 06:02 10/08/23 07:40 Labs: Abnormal Lab Results - Last 24 Hours (Table) 10/08/23 10/08/23 10/08/23 Range/Units 11:35 16:11 20:54 APTT 40.6 H (22.0-30.0) sec POC Glucose (mg/dL) 128 H 162 H (70-110) mg/dL 10/09/23 10/09/23 10/09/23 Range/Units 03:25 05:58 07:00 APTT 74.4 H (22.0-30.0) sec POC Glucose (mg/dL) 141 H 150 H (70-110) mg/dL Assessment and Plan Time with Patient: Less than 30
[2023-10-09 16:19] LABS: Glucose,Whole Blood 230 mg/dL (70-110)
[2023-10-09] MEDS: HEPARIN SOD,PORK IN 0.45% NACL 25,000 UNIT in 0.45% NACL 1 250ML.BAG IV SCH (16:32)
[2023-10-09] MEDS: INSULIN DETEMIR (LEVEMIR) 100 UNIT/ML SYR SQ SCH (19:59)
[2023-10-09] MEDS: ATORVASTATIN 40 MG TAB PO SCH (19:59)
[2023-10-09 20:27] LABS: Glucose,Whole Blood 99 mg/dL (70-110)
[2023-10-10] MEDS: INSULIN ASPART (NovoLOG) 100 UNIT/ML VIAL SQ SCH ×7 (04:44→20:55)
[2023-10-10 06:06] LABS: Glucose,Whole Blood 159 mg/dL (70-110)
[2023-10-10] MEDS: HYDROmorphone 0.5 MG/0.5 ML SYRINGE IVP PRN ×3 (06:38→20:52)
[2023-10-10] MEDS: carvediloL 6.25 MG TAB PO SCH ×2 (06:39→17:47)
[2023-10-10] MEDS: HEPARIN SOD,PORK IN 0.45% NACL 25,000 UNIT in 0.45% NACL 1 250ML.BAG IV SCH (06:42)
[2023-10-10] MEDS: THIAMINE 100 MG TAB PO SCH (09:10)
[2023-10-10] MEDS: VALSARTAN 160 MG TAB PO SCH (09:10)
[2023-10-10] MEDS: NICOTINE 14MG/24HR PATCH TRANSDERM SCH (09:10)
[2023-10-10] MEDS: FAMOTIDINE 20 MG/2 ML VIAL IV SCH ×2 (09:10→20:53)
[2023-10-10] MEDS: ASPIRIN 81 MG PO SCH (09:10)
[2023-10-10 09:22] LABS: HCT 43.9 % (39.0-53.0); HGB 14.7 gm/dL (13.0-17.5); MCH 35.1 pg (25.0-35.0); MCHC 33.6 g/dL (31.0-37.0); MCV 104.4 fL (80.0-100.0); Macrocytosis Slight; Mean Platelet Volume 7.2; Platelet Count 303 k/uL (150-450); RDW 12.4 % (11.5-15.5); WBC 9.5 k/uL (3.8-10.6)
[2023-10-10 09:42] LABS: Chloride 99 mmol/L (98-107)
[2023-10-10 09:43] LABS: African American GFR (CKD) >90 (>60 ml/min/1.73 sqM); Anion Gap 14 mmol/L; Blood Urea Nitrogen 12 mg/dL (9-20); Carbon Dioxide 22 mmol/L (22-30); Glucose 152 mg/dL (74-99); Non-African American GFR(CKD) >90 (>60 ml/min/1.73 sqM); Potassium 4.2 mmol/L (3.5-5.1); Sodium 135 mmol/L (137-145)
[2023-10-10 10:01] LABS: Glucose,Whole Blood 168 mg/dL (70-110)
[2023-10-10] MEDS ORDERED: ONDANSETRON 4 MG/2 ML VIAL IVP ONE (10:10)
[2023-10-10] MEDS ORDERED: LACTATED RINGERS 1,000 ML IV ONE (10:20)
[2023-10-10] MEDS ORDERED: MIDAZOLAM 2 MG/2 ML VIAL ONE (10:22)
[2023-10-10] MEDS ORDERED: LIDOCAINE 1% INJ 10MG/ML (20 ML MDV) ONE (10:22)
[2023-10-10] MEDS ORDERED: PROPOFOL 10 MG/ML 20 ML VIAL IV ONE (10:22)
[2023-10-10] MEDS ORDERED: fentaNYL (PF) 50 MCG/ML 2 ML AMP ONE (10:22)
[2023-10-10] MEDS ORDERED: SODIUM CHLORIDE 0.9% 50 ML with ceFAZolin 2,000 MG IV ONE ×2 (10:41)
[2023-10-10] MEDS: CLOPIDOGREL 75 MG TAB PO SCH (12:10)
[2023-10-10 12:22] LABS: Glucose,Whole Blood 155 mg/dL (70-110)
[2023-10-10] MEDS: HYDROcodone/APAP 5-325MG 1 EACH TAB PO PRN ×2 (13:02→21:13)
--- NOTE | 2023-10-10 13:23 | P.OP ---
Date of Procedure: 10/10/23 Preoperative Diagnosis: Right great toe dry gangrene Critical limb ischemia with previous revascularization Postoperative Diagnosis: Same Procedure(s) Performed: Right great toe amputation Anesthesia: SAL Surgeon: Toro Pollard Estimated Blood Loss (ml): 10 Pathology: none sent Condition: stable Disposition: PACU Indications for Procedure: 58-year-old gentleman with history of right lower extremity critical limb ischemia with gangrene of the great toe who underwent recently revascularization of the superficial femoral artery and posterior tibial artery presents to the operating room for amputation of the great toe. Description of Procedure: After written informed consent was obtained the patient all risks benefits and competitions were described the patient was brought to the operative suite and laid in a supine position. The area of the right foot was prepped and draped in the usual sterile fashion after appropriate anesthetic was performed per the anesthesiologist. Timeout was performed in normal fashion. Antibiotics were infused prior to any incision. A Ray incision was then created with a 10 blade scalpel at the base of the first toe and dissection was carried down to the metatarsal bone with electrocautery. Soft tissue was then removed around the metatarsal bone down to the joint and the bone was removed at the joint space and sent off for pathology. The bone was then were then filed with a rasp. The area was then copiously irrigated with antibiotic solution. The incision was then closed with 2-0 nylon suture in a vertical mattress fashion. The area was then cleansed and dressings were placed. The patient all procedure well and was sent to PACU for recovery.
[2023-10-10] MEDS: NIFEdipine XL 30 MG TAB.ER.24 PO SCH (13:33)
[2023-10-10 17:14] LABS: Glucose,Whole Blood 139 mg/dL (70-110)
[2023-10-10] MEDS: ATORVASTATIN 40 MG TAB PO SCH (20:53)
[2023-10-10] MEDS: RIVAROXABAN 2.5 MG TABLET PO SCH (20:53)
[2023-10-10 20:55] LABS: Glucose,Whole Blood 137 mg/dL (70-110)
[2023-10-10] MEDS: INSULIN DETEMIR (LEVEMIR) 100 UNIT/ML SYR SQ SCH (21:13)
--- NOTE | 2023-10-10 21:22 | P.PN ---
Subjective This is a pleasant 58 years old male with no significant past medical history and he does not follow up with his PCP. Presents because of redness and painful right lower extremity and foot. His problem started 2 days ago as right right foot switch to purple and then after a few more days as dull was gradually Black and its painful so decided to come to the hospital. She denies any change in urine or bowel habits. No fever. No disc disease wea kness or numbness. No dizziness. Patient smokes about half pack per day and I counseled to quit but he declines stating he will slowed down He drinks beer almost every day but over the last week he drank only 2 days because of his foot. No illicit drugs. Patient blood pressure elevated 173/112 Labs including CBC, INR, BMP showed sodium of [address] showing occlusion of the distal right popliteal artery. 10/03/2023 Patient pain in his right foot is controlled, remains on heparin drip No other new complaint Hemodynamically stable, blood pressure 163/94 Cardiology workup is underway, he is currently on metoprolol, losartan and aspirin and Lipitor were added. Continue with normal saline 75 mL/h Patient will require angiogram of the right lower extremity for possible bypass procedure, plus amputation of the big toe 10-04-23 Patient complaining of from pain in his right foot, inspection of the foot looks the same. No chest pain or dyspnea or other new complaint Blood pressure is elevated and application performance engineer on board, blood pressure medication added including coronary sonogram, losartan 25 mg twice daily. Also he is on aspirin 81 mg Continued on heparin drip and normal saline 75 mL/h Today he's developing some alcohol withdrawal symptoms and he was placed on CIWA score protocol vascular surgery on the case and the plan at 4 bypass surgery as well as big toe palpitation 10/05/2023 Patient alert and awake at baseline. Still complaining of from significant pain in his right foot. Right foot discoloration and extension looks the same since admission. Still has dry gangrene of the right great toe. No chest pain. No dyspnea. No other new complaints. Blood pressure is slightly elevated. Cardiology preop evaluation was obtained. Patient continued on aspirin and Lipitor Coreg and valsartan Patient to undergo angiogram to be followed by bypass procedure with vascular surgery team. Resuming the care of the patient 10/10/2023 Patient with known new complaint Pain on the right foot is cold controlled and mild today. Patient is going for amputation of the right great toe which is gangrenous. This currently on Xarelto and aspirin and Lipitor Coreg and nifedipine Objective - Vital Signs Vital signs: Vital Signs Temp 97.4 F L 10/10/23 12:00 Pulse 54 L 10/10/23 16:00 Resp 16 10/10/23 11:43 BP 136/79 10/10/23 16:00 Pulse Ox 99 10/10/23 12:00 FiO2 Intake & Output 10/10/23 10/10/23 10/11/23 06:59 18:59 06:59 Intake Total 250.000 676.594 Output Total 200 210 Balance 50.000 466.594 Intake: IV 650 Intake, IV Titration 250.000 26.594 Amount Heparin Sod,Pork in 0.45% 250.000 26.594 NaCl 25,000 unit In 0.45 % NaCl 1 250ml.bag @ 18 UNITS/KG/HR 15.921 mls/hr IV .[id number] [facility] Rx#: [id number] Oral 0 0 Output: Urine 200 200 Estimated Blood Loss 10 Other: Voiding Method Toilet Toilet Urinal - Exam GENERAL: The patient is alert and oriented x3, not in any acute distress. Well developed, well nourished. HEENT: Pupils are round and equally reacting to light. EOMI. No scleral icterus. No conjunctival pallor. Normocephalic, atraumatic. No pharyngeal erythema. No thyromegaly. CARDIOVASCULAR: S1 and S2 present. No murmurs, rubs, or gallops. PULMONARY: Chest is clear to auscultation, no wheezing , no crackles. ABDOMEN: Soft, nontender, nondistended, normoactive bowel sounds. No palpable organomegaly. MUSCULOSKELETAL: No joint swelling or deformity. EXTREMITIES: No cyanosis, clubbing, or pedal edema. NEUROLOGICAL: Gross neurological examination did not reveal any focal deficits. SKIN: No rashes. no petechiae. - Labs CBC & Chem 7: 10/10/23 08:03 10/10/23 08:03 Labs: Abnormal Lab Results - Last 24 Hours (Table) 10/09/23 10/10/23 10/10/23 Range/Units 23:14 06:05 08:03 RBC (4.30-5.90) m/uL MCV (80.0-100.0) fL MCH (25.0-35.0) pg APTT 64.2 H (22.0-30.0) sec Sodium 135 L (137-145) mmol/L Glucose 152 H (74-99) mg/dL POC Glucose (mg/dL) 159 H (70-110) mg/dL 10/10/23 10/10/23 10/10/23 Range/Units 08:03 10:00 12:21 RBC 4.20 L (4.30-5.90) m/uL MCV 104.4 H (80.0-100.0) fL MCH 35.1 H (25.0-35.0) pg APTT (22.0-30.0) sec Sodium (137-145) mmol/L Glucose (74-99) mg/dL POC Glucose (mg/dL) 168 H 155 H (70-110) mg/dL 10/10/23 10/10/23 Range/Units 17:12 20:54 RBC (4.30-5.90) m/uL MCV (80.0-100.0) fL MCH (25.0-35.0) pg APTT (22.0-30.0) sec Sodium (137-145) mmol/L Glucose (74-99) mg/dL POC Glucose (mg/dL) 139 H 137 H (70-110) mg/dL Assessment and Plan Assessment: Right lower extremity and foot ischemia secondary to 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 non- adherence with his medical management, does not follow up with PCP Plan: Patient is status post bypass procedure with vascular surgery team. Continue with Coreg, valsartan aspirin and Lipitor Continue xarelto cardiology team consult for preop evaluation From a medical perspective there is no contraindication to proceed from surgery however patient will be at some risk from this procedure. Labs and medication were reviewed.. Continue same treatment. Continue with symptomatic treatment. Resume home medication. Monitor labs and vitals. DVT and GI prophylaxis. Further recommendations as per clinical course of the patient DVT prophylaxis: xarelto GI Prophylaxis: Pepcid PT/OT: Pending Prognosis is guarded
[2023-10-11] MEDS: HYDROmorphone 0.5 MG/0.5 ML SYRINGE IVP PRN ×4 (02:46→14:15)
[2023-10-11 05:57] LABS: Glucose,Whole Blood 167 mg/dL (70-110)
[2023-10-11] MEDS: carvediloL 6.25 MG TAB PO SCH ×2 (06:37→17:50)
[2023-10-11] MEDS: INSULIN ASPART (NovoLOG) 100 UNIT/ML VIAL SQ SCH ×7 (06:37→21:38)
[2023-10-11] MEDS: HYDROcodone/APAP 5-325MG 1 EACH TAB PO PRN ×3 (06:52→20:55)
[2023-10-11] MEDS: RIVAROXABAN 2.5 MG TABLET PO SCH ×2 (08:45→20:56)
[2023-10-11] MEDS: ASPIRIN 81 MG PO SCH (08:45)
[2023-10-11] MEDS: FAMOTIDINE 20 MG/2 ML VIAL IV SCH ×2 (08:45→20:56)
[2023-10-11] MEDS: THIAMINE 100 MG TAB PO SCH (08:45)
[2023-10-11] MEDS: VALSARTAN 160 MG TAB PO SCH (08:46)
[2023-10-11] MEDS: NICOTINE 14MG/24HR PATCH TRANSDERM SCH (08:46)
--- NOTE | 2023-10-11 09:40 | P.PN ---
Subjective Progress Note Date: 10/11/23 Principal diagnosis: Gangrene right great toe, peripheral arterial disease Patient seen and examined today as a follow-up. He is status post right lower extremity angiogram, percutaneous atherectomy of the right SFA with balloon angioplasty and stenting of the right SFA, percutaneous balloon angioplasty of the right posterior tibial artery. He is postop day #1 for right great toe amputation. Pain is well controlled. He was started on Xarelto 2.5 mg BID and remians on ASA 81 mg daily and Plavix has been discontinued. Objective - Vital Signs Vital signs: Vital Signs Temp 98.3 F 10/11/23 02:47 Pulse 58 L 10/11/23 02:47 Resp 15 10/11/23 02:47 BP 134/77 10/11/23 02:47 Pulse Ox 98 10/11/23 02:47 FiO2 Intake & Output 10/10/23 10/11/23 10/11/23 18:59 06:59 18:59 Intake Total 676.594 Output Total 210 Balance 466.594 Intake: IV 650 Intake, IV Titration 26.594 Amount Heparin Sod,Pork in 0.45% 26.594 NaCl 25,000 unit In 0.45 % NaCl 1 250ml.bag @ 18 UNITS/KG/HR 15.921 mls/hr IV .[id number] [facility] Rx#: [id number] Oral 0 Output: Urine 200 Estimated Blood Loss 10 Other: Voiding Method Toilet Urinal Urinal # Voids 3 - Exam General appearance: The patient is alert, oriented, appears in no acute distress. HET: Head is normocephalic and atraumatic. Pupils are equal and reactive. Neck: Supple. Abdomen: Soft, nondistended. Extremities: Left groin access site without any evidence of hematoma, no bleeding. Palpable femoral pulse. Right foot with eschar to dorsal aspect of foot, great toe amputation well approximated with suture. Palpable anterior tibial pulse. Neurological: No focal deficits. - Labs CBC & Chem 7: 10/10/23 08:03 10/10/23 08:03 Labs: Abnormal Lab Results - Last 24 Hours (Table) 10/10/23 10/10/23 10/10/23 Range/Units 08:03 08:03 10:00 RBC 4.20 L (4.30-5.90) m/uL MCV 104.4 H (80.0-100.0) fL MCH 35.1 H (25.0-35.0) pg Sodium 135 L (137-145) mmol/L Glucose 152 H (74-99) mg/dL POC Glucose (mg/dL) 168 H (70-110) mg/dL 10/10/23 10/10/23 10/10/23 Range/Units 12:21 17:12 20:54 RBC (4.30-5.90) m/uL MCV (80.0-100.0) fL MCH (25.0-35.0) pg Sodium (137-145) mmol/L Glucose (74-99) mg/dL POC Glucose (mg/dL) 155 H 139 H 137 H (70-110) mg/dL 10/11/23 Range/Units 05:55 RBC (4.30-5.90) m/uL MCV (80.0-100.0) fL MCH (25.0-35.0) pg Sodium (137-145) mmol/L Glucose (74-99) mg/dL POC Glucose (mg/dL) 167 H (70-110) mg/dL Assessment and Plan Assessment: 1. Right superficial femoral artery occlusion, anterior and posterior tibial artery occlusion status post percutaneous atherectomy of right SFA and balloon angioplasty with stenting. Percutaneous balloon angioplasty of right posterior tibial artery closure left femoral artery with vascular device 2. Right lower extremity critical limb ischemia [place] classification 6 3. Right great toe gangrene status post right great toe amputation 4. Right superficial femoral artery occlusion, anterior and posterior tibial artery occlusion 5. Right foot wound 6. Tobacco abuse Plan: 1. Recommend smoking cessation 2. Plavix discontinued. Continue aspirin 81 mg daily, Xarelto 2.5 mg twice a day added 3. Activity as tolerated. Right heel walk only, where postop shoe 4. Daily dressing change with Vaseline gauze, 4 x 4 and Kerlix 5. Patient to follow up with vascular surgery in 2 weeks Thank you for this consultation, patient is cleared from vascular surgery for discharge. The impression and plan of care has been dictated as directed. Dr. Pollard I performed a history and examination of this patient, discussed the same with the dictator. I agree with the dictator's note ,documented as a scribe. Any additional findings or plans will be noted.
[2023-10-11] MEDS: NIFEdipine XL 30 MG TAB.ER.24 PO SCH (12:06)
[2023-10-11 12:41] LABS: Glucose,Whole Blood 148 mg/dL (70-110)
[2023-10-11 14:18] VITALS: RESP 16
[2023-10-11 17:23] LABS: Glucose,Whole Blood 159 mg/dL (70-110)
[2023-10-11] MEDS: ATORVASTATIN 40 MG TAB PO SCH (20:56)
[2023-10-11 21:10] LABS: Glucose,Whole Blood 151 mg/dL (70-110)
[2023-10-11] MEDS: INSULIN DETEMIR (LEVEMIR) 100 UNIT/ML SYR SQ SCH (21:38)
--- NOTE | 2023-10-11 23:38 | P.PN ---
Subjective This is a pleasant 58 years old male with no significant past medical history and he does not follow up with his PCP. Presents because of redness and painful right lower extremity and foot. His problem started 2 days ago as right right foot switch to purple and then after a few more days as dull was gradually Black and its painful so decided to come to the hospital. She denies any change in urine or bowel habits. No fever. No disc disease wea kness or numbness. No dizziness. Patient smokes about half pack per day and I counseled to quit but he declines stating he will slowed down He drinks beer almost every day but over the last week he drank only 2 days because of his foot. No illicit drugs. Patient blood pressure elevated 173/112 Labs including CBC, INR, BMP showed sodium of [address] showing occlusion of the distal right popliteal artery. 10/03/2023 Patient pain in his right foot is controlled, remains on heparin drip No other new complaint Hemodynamically stable, blood pressure 163/94 Cardiology workup is underway, he is currently on metoprolol, losartan and aspirin and Lipitor were added. Continue with normal saline 75 mL/h Patient will require angiogram of the right lower extremity for possible bypass procedure, plus amputation of the big toe 10-04-23 Patient complaining of from pain in his right foot, inspection of the foot looks the same. No chest pain or dyspnea or other new complaint Blood pressure is elevated and oreman on board, blood pressure medication added including coronary sonogram, losartan 25 mg twice daily. Also he is on aspirin 81 mg Continued on heparin drip and normal saline 75 mL/h Today he's developing some alcohol withdrawal symptoms and he was placed on CIWA score protocol vascular surgery on the case and the plan at 4 bypass surgery as well as big toe palpitation 10/05/2023 Patient alert and awake at baseline. Still complaining of from significant pain in his right foot. Right foot discoloration and extension looks the same since admission. Still has dry gangrene of the right great toe. No chest pain. No dyspnea. No other new complaints. Blood pressure is slightly elevated. Cardiology preop evaluation was obtained. Patient continued on aspirin and Lipitor Coreg and valsartan Patient to undergo angiogram to be followed by bypass procedure with vascular surgery team. 10/10/2023 Patient with known new complaint Pain on the right foot is cold controlled and mild today. Patient is going for amputation of the right great toe which is gangrenous. This currently on Xarelto and aspirin and Lipitor Coreg and nifedipine 10/11/2023 Patient status postoperative patient of the gangrenous right big toe. Today postop day #1. Patient proven and looks stable Hemodynamically stable. Discharge planning the progress We'll check Xarelto co-pay Patient then required special boots upon discharge Objective - Vital Signs Vital signs: Vital Signs Temp 98.8 F 10/11/23 19:05 Pulse 64 10/11/23 19:05 Resp 16 10/11/23 19:05 BP 114/71 10/11/23 19:05 Pulse Ox 96 10/11/23 19:05 FiO2 Intake & Output 10/11/23 10/11/23 10/12/23 06:59 18:59 06:59 Intake Total 598 Output Total 1800 Balance -1202 Intake: Oral 598 Output: Urine 1800 Other: Voiding Method Urinal # Voids 3 - Exam GENERAL: The patient is alert and oriented x3, not in any acute distress. Well developed, well nourished. HEENT: Pupils are round and equally reacting to light. EOMI. No scleral icterus. No conjunctival pallor. Normocephalic, atraumatic. No pharyngeal erythema. No thyromegaly. CARDIOVASCULAR: S1 and S2 present. No murmurs, rubs, or gallops. PULMONARY: Chest is clear to auscultation, no wheezing , no crackles. ABDOMEN: Soft, nontender, nondistended, normoactive bowel sounds. No palpable organomegaly. MUSCULOSKELETAL: No joint swelling or deformity. EXTREMITIES: No cyanosis, clubbing, or pedal edema. NEUROLOGICAL: Gross neurological examination did not reveal any focal deficits. SKIN: No rashes. no petechiae. - Labs CBC & Chem 7: 10/10/23 08:03 10/10/23 08:03 Labs: Abnormal Lab Results - Last 24 Hours (Table) 10/11/23 10/11/23 10/11/23 Range/Units 05:55 12:40 17:21 POC Glucose (mg/dL) 167 H 148 H 159 H (70-110) mg/dL 10/11/23 Range/Units 21:07 POC Glucose (mg/dL) 151 H (70-110) mg/dL Assessment and Plan Assessment: Right lower extremity and foot ischemia secondary to acute on chronic right popl iteal artery occlusion Dry gangrene and cellulitis of the right foot Uncontrolled hypertension with urgency present on admission alcohol withdrawal Hyponatremia, improving Nicotine dependence Peripheral vascular disease as above. non- adherence with his medical management, does not follow up with PCP Plan: Patient found stable by vascular surgery team. Continue with Coreg, valsartan aspirin and Lipitor Continue xarelto, find co-pay Patient is medically stable Labs and medication were reviewed.. Continue same treatment. Continue with symptomatic treatment. Resume home medication. Monitor labs and vitals. DVT and GI prophylaxis. Further recommendations as per clinical course of the patient DVT prophylaxis: xarelto GI Prophylaxis: Pepcid
[2023-10-12] MEDS: carvediloL 6.25 MG TAB PO SCH (06:23)
[2023-10-12 06:24] LABS: Glucose,Whole Blood 163 mg/dL (70-110)
[2023-10-12] MEDS: INSULIN ASPART (NovoLOG) 100 UNIT/ML VIAL SQ SCH ×4 (06:41→13:04)
[2023-10-12 08:17] VITALS: BP 133/73; PULSE 72; TEMP 99
[2023-10-12] MEDS: HYDROmorphone 0.5 MG/0.5 ML SYRINGE IVP PRN ×2 (09:13→13:22)
[2023-10-12] MEDS: NIFEdipine XL 30 MG TAB.ER.24 PO SCH ×2 (09:14→13:04)
[2023-10-12] MEDS: THIAMINE 100 MG TAB PO SCH (09:14)
[2023-10-12] MEDS: NICOTINE 14MG/24HR PATCH TRANSDERM SCH (09:14)
[2023-10-12] MEDS: ASPIRIN 81 MG PO SCH (09:14)
[2023-10-12] MEDS: RIVAROXABAN 2.5 MG TABLET PO SCH (09:14)
[2023-10-12] MEDS: FAMOTIDINE 20 MG/2 ML VIAL IV SCH (09:15)
[2023-10-12] MEDS: VALSARTAN 160 MG TAB PO SCH (10:02)
--- NOTE | 2023-10-12 11:35 | P.PN ---
Subjective Progress Note Date: 10/12/23 Principal diagnosis: Gangrene right great toe, peripheral arterial disease Patient seen and examined today as a follow-up. He is status post right lower extremity angiogram, percutaneous atherectomy of the right SFA with balloon angioplasty and stenting of the right SFA, percutaneous balloon angioplasty of the right posterior tibial artery. He is postop day #2 for right great toe amputation. Pain is well controlled. He was started on Xarelto 2.5 mg BID and remians on ASA 81 mg daily and Plavix has been discontinued. Patient was cleared yesterday from vascular surgery for discharge. Unclear why patient wasn't discharged however patient does have postop shoe at bedside. No acute changes through the night. Objective - Vital Signs Vital signs: Vital Signs Temp 99.0 F 10/12/23 08:00 Pulse 72 10/12/23 08:00 Resp 16 10/12/23 08:00 BP 133/73 10/12/23 08:00 Pulse Ox 98 10/12/23 08:00 FiO2 Intake & Output 10/11/23 10/12/23 10/12/23 18:59 06:59 18:59 Intake Total 598 118 Output Total 1800 400 Balance -1202 -282 Intake: Oral 598 118 Output: Urine 1800 400 Other: Voiding Method Urinal # Voids 2 - Exam General appearance: The patient is alert, oriented, appears in no acute distre ss. HET: Head is normocephalic and atraumatic. Pupils are equal and reactive. Neck: Supple. Abdomen: Soft, nondistended. Extremities: Left groin access site without any evidence of hematoma, no b leeding. Palpable femoral pulse. Right foot with eschar to dorsal aspect of foot, great toe amputation well approximated with suture. Palpable anterior tibial pulse. Neurological: No focal deficits. - Labs CBC & Chem 7: 10/10/23 08:03 10/10/23 08:03 Labs: Abnormal Lab Results - Last 24 Hours (Table) 10/11/23 10/11/23 10/11/23 Range/Units 12:40 17:21 21:07 POC Glucose (mg/dL) 148 H 159 H 151 H (70-110) mg/dL 10/12/23 Range/Units 06:22 POC Glucose (mg/dL) 163 H (70-110) mg/dL Assessment and Plan Assessment: 1. Right superficial femoral artery occlusion, anterior and posterior tibial artery occlusion status post percutaneous atherectomy of right SFA and balloon angioplasty with stenting. Percutaneous balloon angioplasty of right posterior tibial artery closure left femoral artery with vascular device 2. Right lower extremity critical limb ischemia [place] classification 6 3. Right great toe gangrene status post right great toe amputation 4. Right superficial femoral artery occlusion, anterior and posterior tibial artery occlusion 5. Right foot wound 6. Tobacco abuse Plan: 1. Recommend smoking cessation 2. Plavix discontinued. Continue aspirin 81 mg daily, Xarelto 2.5 mg twice a day added 3. Activity as tolerated. Right heel walk only, where postop shoe 4. Daily dressing change with Vaseline gauze, 4 x 4 and Kerlix 5. Patient to follow up with vascular surgery in 2 weeks Thank you for this consultation, patient is cleared from vascular surgery for discharge. The impression and plan of care has been dictated as directed. Dr. Myers I performed a history and examination of this patient, discussed the same with the dictator. I agree with the dictator's note ,documented as a scribe. Any additional findings or plans will be noted.
[2023-10-12 12:37] LABS: Glucose,Whole Blood 125 mg/dL (70-110)
--- NOTE | 2023-10-12 13:26 | P.DS ---
Providers Date of admission: 10/01/23 15:54 Expected date of discharge: 10/12/23 Attending physician: Gonzalo Stephen Consults: 10/01/23 17:12 Consult Physician Routine Consulting Provider: Toro Pollard Consult Reason/Comments: Arterial occlusion Do you want consulting provider notified?: Already Contacted 10/02/23 08:55 Consult Physician Routine Consulting Provider: Junior Rosa Consult Reason/Comments: pre op evaluation Do you want consulting provider notified?: Yes Primary care physician: Stated None Hospital Course: Discharge diagnoses; Right lower extremity and foot ischemia secondary to 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 non- adherence with his medical management, does not follow up with PCP Hospital course; This is a pleasant 58 years old male with no significant past medical history and he does not follow up with his PCP. Presents because of redness and painful right lower extremity and foot. His problem started 2 days ago as right right foot switch to purple and then after a few more days as dull was gradually Black and its painful so decided to come to the hospital. She denies any change in urine or bowel habits. No fever. No disc disease weakness or numbness. No dizziness. Patient smokes about half pack per day and I counseled to quit but he declines stating he will slowed down He drinks beer almost every day but over the last week he drank only 2 days because of his foot. No illicit drugs. Patient blood pressure elevated 173/112 Labs including CBC, INR, BMP showed sodium of [address] showing occlusion of the distal right popliteal artery. 10/03/2023 Patient pain in his right foot is controlled, remains on heparin drip No other new complaint Hemodynamically stable, blood pressure 163/94 Cardiology workup is underway, he is currently on metoprolol, losartan and aspirin and Lipitor were added. Continue with normal saline 75 mL/h Patient will require angiogram of the right lower extremity for possible bypass procedure, plus amputation of the big toe 10-04-23 Patient complaining of from pain in his right foot, inspection of the foot looks the same. No chest pain or dyspnea or other new complaint Blood pressure is elevated and digital content marketing manager on board, blood pressure medication added including coronary sonogram, losartan 25 mg twice daily. Also he is on aspirin 81 mg Continued on heparin drip and normal saline 75 mL/h Today he's developing some alcohol withdrawal symptoms and he was placed on CIWA score protocol vascular surgery on the case and the plan at 4 bypass surgery as well as big toe palpitation 10/05/2023 Patient alert and awake at baseline. Still complaining of from significant pain in his right foot. Right foot discoloration and extension looks the same since admission. Still has dry gangrene of the right great toe. No chest pain. No dyspnea. No other new complaints. Blood pressure is slightly elevated. Cardiology preop evaluation was obtained. Patient continued on aspirin and Lipitor Coreg and valsartan Patient to undergo angiogram to be followed by bypass procedure with vascular surgery team. 10/10/2023 Patient with known new complaint Pain on the right foot is cold controlled and mild today. Patient is going for amputation of the right great toe which is gangrenous. This currently on Xarelto and aspirin and Lipitor Coreg and nifedipine 10/11/2023 Patient status postoperative patient of the gangrenous right big toe. Today postop day #1. Patient proven and looks stable Hemodynamically stable. Discharge planning the progress We'll check Xarelto co-pay Patient then required special boots upon discharge 10/12. Patient seen and examined. Vascular surgery cleared the patient for discharge. PHYSICAL EXAMINATION: GENERAL: The patient is alert and oriented x3, not in any acute distress. Well developed, well nourished. HEENT: Pupils are round and equally reacting to light. EOMI. No scleral icterus. No conjunctival pallor. Normocephalic, atraumatic. No pharyngeal erythema. No thyromegaly. CARDIOVASCULAR: S1 and S2 present. No murmurs, rubs, or gallops. PULMONARY: Chest is clear to auscultation, no wheezing or crackles. ABDOMEN: Soft, nontender, nondistended, normoactive bowel sounds. No palpable organomegaly. MUSCULOSKELETAL: No joint swelling or deformity. EXTREMITIES: No cyanosis, clubbing, or pedal edema. Right foot bandaged seen NEUROLOGICAL: Gross neurological examination did not reveal any focal deficits. SKIN: No rashes. Dictation was produced using [employer] software. please excuse any grammatical, word or spelling errors. Patient Condition at Discharge: Fair Plan - Discharge Summary Discharge Rx Participant: Yes New Discharge Prescriptions: New carvediloL [Coreg] 6.25 mg PO BID-W/MEALS #60 tab Atorvastatin [Lipitor] 40 mg PO HS #30 tab HYDROcodone/APAP 5-325MG [[place] 5-325] 1 each PO Q6HR PRN tab PRN Reason: Pain INSULIN ASPART (NovoLOG) [NovoLOG (formulary)] 3 unit SQ AC-TID #3 pen NIFEdipine XL [Procardia XL] 60 mg PO 1200 #60 tab Rivaroxaban [Xarelto] 2.5 mg PO BID #60 tab Aspirin 81 mg PO DAILY #30 tab Valsartan [Diovan] 160 mg PO DAILY #30 tab Nicotine 14Mg/24Hr Patch [Habitrol] 1 patch TRANSDERM DAILY 7 Days #7 patch Insulin Detemir (Levemir) [Levemir] 8 unit SQ HS #3 pen Famotidine [Pepcid] 20 mg PO BID 21 Days #42 tablet Thiamine [Vitamin B-1] 100 mg PO DAILY #30 tab Discharge Medication List Aspirin 81 mg PO DAILY #30 tab 10/11/23 [Rx] Atorvastatin [Lipitor] 40 mg PO HS #30 tab 10/11/23 [Rx] Famotidine [Pepcid] 20 mg PO BID 21 Days #42 tablet 10/11/23 [Rx] HYDROcodone/APAP 5-325MG [[place] 5-325] 1 each PO Q6HR PRN tab 10/11/23 [Rx] INSULIN ASPART (NovoLOG) [NovoLOG (formulary)] 3 unit SQ AC-TID #3 pen 10/11/23 [Rx] Insulin Detemir (Levemir) [Levemir] 8 unit SQ HS #3 pen 10/11/23 [Rx] NIFEdipine XL [Procardia XL] 60 mg PO 1200 #60 tab 10/11/23 [Rx] Nicotine 14Mg/24Hr Patch [Habitrol] 1 patch TRANSDERM DAILY 7 Days #7 patch 10/11/23 [Rx] Rivaroxaban [Xarelto] 2.5 mg PO BID #60 tab 10/11/23 [Rx] Thiamine [Vitamin B-1] 100 mg PO DAILY #30 tab 10/11/23 [Rx] Valsartan [Diovan] 160 mg PO DAILY #30 tab 10/11/23 [Rx] carvediloL [Coreg] 6.25 mg PO BID-W/MEALS #60 tab 10/11/23 [Rx] Follow up Appointment(s)/Referral(s): Junior Rosa MD [Medical Doctor] - 1 Week (Office will call patient with date and time of appointment) Eliecer Quintanilla MD [REFERRING] - 1 Week (poultry eviscerator ) Toro Pollard DO [STAFF PHYSICIAN] - 10/25/23 2:00 pm [facility], [NON-STAFF] - 1 Week None,Stated [Primary Care Provider] - 1-2 days Patient Instructions/Handouts: Rivaroxaban (By mouth), Heart Healthy Diet (DC), Meal Planning with Diabetes Exchanges (DC) Activity/Diet/Wound Care/Special Instructions: heart healthy diet , low carbohydrate 1800 k george per day diet we recommend to check your glucose 4 times a day before each meal and at bed time , keep the results in a log book and bring it to your doctor upon your appointment date if your glucose is less than 70 or more than 400 then call 911 and come to emergency room We recommend you to contact your health insurance provider to find a nearby primary care doctor, please call to make an appointment in 1 week Daily dressing change with Vaseline gauze, 4 x 4 and Kerlix or as needed Heel walk only on right foot, where postop shoe when ambulating. May shower no tub bathing. Watch incision site for infection, fever 100.4 or greater, purulent drainage or increased redness call vascular office Discharge Disposition: HOME WITH HOME HEALTH SERVICES
== END 2023-10-12 15:23 | disposition home health service (06) | DRG 182 ==
LOC: EC 12:56 → 3SCARD 15:54 → 6NMEDSUR 10-10 10:28
PROVIDERS: ADMIT Hospitalist; ATTEND Hospitalist
PROC: B41D1ZZ Fluoroscopy of Aorta and Bilateral Lower Extremity Arteries using Low Osmolar Contrast (ICD-10-PCS; 2023-10-05 12:30)
PROC: 04CK3ZZ Extirpation of Matter from Right Femoral Artery, Percutaneous Approach (ICD-10-PCS; principal; 2023-10-07 13:30)
PROC: 047R3ZZ Dilation of Right Posterior Tibial Artery, Percutaneous Approach (ICD-10-PCS; principal; 2023-10-07 13:30)
PROC: 047K3DZ Dilation of Right Femoral Artery with Intraluminal Device, Percutaneous Approach (ICD-10-PCS; principal; 2023-10-07 13:30)
PROC: B41F1ZZ Fluoroscopy of Right Lower Extremity Arteries using Low Osmolar Contrast (ICD-10-PCS; principal; 2023-10-07 13:30)
PROC: 02HV33Z Insertion of Infusion Device into Superior Vena Cava, Percutaneous Approach (ICD-10-PCS; 2023-10-08)
PROC: 0Y6P0Z0 Detachment at Right 1st Toe, Complete, Open Approach (ICD-10-PCS; 2023-10-10)
DX: E11.52 Type 2 diabetes mellitus with diabetic peripheral angiopathy with gangrene (principal); I70.261 Atherosclerosis of native arteries of extremities with gangrene, right leg; Z71.6 Tobacco abuse counseling; F17.210 Nicotine dependence, cigarettes, uncomplicated; F10.139 Alcohol abuse with withdrawal, unspecified; I16.0 Hypertensive urgency; E87.1 Hypo-osmolality and hyponatremia; I10 Essential (primary) hypertension; L03.115 Cellulitis of right lower limb; Z79.02 Long term (current) use of antithrombotics/antiplatelets; Z79.82 Long term (current) use of aspirin; Z91.199 Patient's noncompliance with other medical treatment and regimen due to unspecified reason
CPT/HCPCS: 36200; 36415; 37227; 37228; 75625; 75716; 76937; 80048; 80053; 82550; 83036; 83605; 85025; 85027; 85610; 85730; 86140; 87040; 93306; 93923; 93970; 96361; 96374; 96375; 96376; 99285; 99406

== ENCOUNTER 2023-10-20 15:28 | Inpatient (IN) | payer OTHER ==
--- NOTE | 2023-10-20 16:48 | ED ---
General Adult HPI - General Source: patient Mode of arrival: ambulatory Limitations: no limitations <Jhonathan Mccann - Last Filed: 10/20/23 16:38> <TimdianaDiego - Last Filed: 10/20/23 19:22> - General Chief complaint: Skin/Abscess/Foreign Body Stated complaint: post op R big toe infection Time Seen by Provider: 10/20/23 16:38 - History of Present Illness Initial comments: 58-year-old male presenting with chief complaint of postop complication. Patient had a right great toe amputation on 10/[address] Pollard. States that his wound is turning black and now has a foul odor. I performed the quick note portion of this visit electronically signed Jhonathan Mccann PA-C (Jhonathan Mccann) - Related Data Previous Rx's Medication Instructions Recorded Aspirin 81 mg PO DAILY #30 tab 10/11/23 Atorvastatin [Lipitor] 40 mg PO HS #30 tab 10/11/23 Famotidine [Pepcid] 20 mg PO BID 21 Days #42 tablet 10/11/23 HYDROcodone/APAP 5-325MG [Starlight 1 each PO Q6HR PRN tab 10/11/23 5-325] INSULIN ASPART (NovoLOG) [NovoLOG 3 unit SQ AC-TID #3 pen 10/11/23 (formulary)] Insulin Detemir (Levemir) [Levemir] 8 unit SQ HS #3 pen 10/11/23 NIFEdipine XL [Procardia XL] 60 mg PO 1200 #60 tab 10/11/23 Nicotine 14Mg/24Hr Patch [Habitrol] 1 patch TRANSDERM DAILY 7 Days #7 10/11/23 patch Rivaroxaban [Xarelto] 2.5 mg PO BID #60 tab 10/11/23 Thiamine [Vitamin B-1] 100 mg PO DAILY #30 tab 10/11/23 Valsartan [Diovan] 160 mg PO DAILY #30 tab 10/11/23 carvediloL [Coreg] 6.25 mg PO BID-W/MEALS #60 tab 10/11/23 Allergies Allergy/AdvReac Type Severity Reaction Status Date / Time No Known Allergies Allergy Verified 10/01/23 16:54 Review of Systems ROS Other: All systems not noted in ROS Statement are negative. <Jhonathan Mccann - Last Filed: 10/20/23 16:38> ROS Other: All systems not noted in ROS Statement are negative. <Diego Bullard - Last Filed: 10/20/23 19:22> ROS Statement: Those systems with pertinent positive or pertinent negative responses have been documented in the HPI. Past Medical History Past Medical History: Diabetes Mellitus, Hypertension History of Any Multi-Drug Resistant Organisms: None Reported Past Surgical History: Cholecystectomy, Hernia Repair Additional Past Surgical History / Comment(s): great toe amputation on right foot. Past Anesthesia/Blood Transfusion Reactions: No Reported Reaction Past Psychological History: No Psychological Hx Reported Smoking Status: Current every day smoker Past Alcohol Use History: Occasional Past Drug Use History: None Reported <Jhonathan Mccann - Last Filed: 10/20/23 16:38> General Exam Limitations: no limitations <Jhonathan Mccann - Last Filed: 10/20/23 16:38> General appearance: alert, in no apparent distress Head exam: Present: atraumatic, normocephalic Eye exam: Present: normal appearance, PERRL ENT exam: Present: normal exam Neck exam: Present: normal inspection. Absent: tenderness, meningismus Respiratory exam: Present: normal lung sounds bilaterally. Absent: respiratory distress, wheezes Cardiovascular Exam: Present: regular rate, normal rhythm GI/Abdominal exam: Present: soft. Absent: distended, tenderness Extremities exam: Present: other (Right foot, status post application of the great toe with wet gangrene) Neurological exam: Present: alert, oriented X3, CN II-XII intact. Absent: motor sensory deficit Psychiatric exam: Present: normal affect, normal mood Skin exam: Present: warm <Diego Bullard - Last Filed: 10/20/23 19:22> - General Exam Comments Initial Comments: Visual Physical Exam Vital signs reviewed General: Well-appearing, nontoxic, no acute distress. Head: Normocephalic, atraumatic Eyes: PERRLA, EOMI ENT: Airway patent Chest: Nonlabored breathing Skin: No visual rash, normal skin tone Neuro: Alert and oriented 3 Musculoskeletal: No gross abnormalities (Jhonathan Mccann) Course Vital Signs 10/20/23 16:31 Temperature 97.9 F Pulse Rate 76 Respiratory 18 Rate Blood Pressure 120/84 O2 Sat by Pulse 99 Oximetry Medical Decision Making - Lab Data Result diagrams: 10/20/23 17:10 10/20/23 17:10 <Diego Bullard N - Last Filed: 10/20/23 19:22> - Medical Decision Making Was pt. sent in by a medical professional or institution (JORDY Chan, BUSINESS DEVELOPMENT DIRECTOR, urgent care, hospital, or longterm...) When possible be specific @ -No Did you speak to anyone other than the patient for history (EMS, parent, family, police, friend...)? What history was obtained from this source @ -No Did you review nursing and triage notes (agree or disagree)? Why? @ -I reviewed and agree with nursing and triage notes Were old charts reviewed (outside hosp., previous admission, EMS record, old EKG, old radiological studies, urgent care reports/EKG's, longterm records)? Report findings @ -No old charts were reviewed Differential Diagnosis (chest pain, altered mental status, abdominal pain women, abdominal pain men, vaginal bleeding, weakness, fever, dyspnea, syncope, headac he, dizziness, GI bleed, back pain, seizure, CVA, palpatations, mental health, musculoskeletal)? @ -[Cellulitis, osteomyelitis, necrotizing fasciitis EKG interpreted by me (3pts min.). @ -As above X-rays interpreted by me (1pt min.). @X-ray status post amputation right great toe CT interpreted by me (1pt min.). @ -None done U/S interpreted by me (1pt. min.). @ -None done What testing was considered but not performed or refused? (CT, X-rays, U/S, labs)? Why? @ -None What meds were considered but not given or refused? Why? @ -None Did you discuss the management of the patient with other professionals (professionals i.e. JORDY Chan, BUSINESS DEVELOPMENT DIRECTOR, lab, RT, psych nurse, health social work professor, calibrator barometers, teacher, data officer, case making machine operator)? Give summary @ -No Was smoking cessation discussed for >3mins.? @ -No Was critical care preformed (if so, how long)? @ -No Were there social determinants of health that impacted care today? How? ( Homelessness, low income, unemployed, alcoholism, drug addiction, transportation, low edu. Level, literacy, decrease access to med. care, residential, rehab)? @ -No Was there de-escalation of care discussed even if they declined (Discuss DNR or withdrawal of care, Hospice)? DNR status @ -No What co-morbidities impacted this encounter? (DM, HTN, Smoking, COPD, CAD, Cancer, CVA, ARF, Chemo, Hep., AIDS, mental health diagnosis, sleep apnea, morbid obesity)? @ -[Peripheral vascular disease, diabetes Was patient admitted / discharged? Hospital course, mention meds given and route, prescriptions, significant lab abnormalities, going to OR and other pertinent info. @ -Patient with soft tissue infection at surgical site, foul-smelling purulent drainage with surrounding cellulitis consistent with wet gangrene. Patient has a leukocytosis and thrombocytosis. Patient will be admitted on Zosyn and vancomycin. Admitted to internal medicine with vascular surgery on consult Undiagnosed new problem with uncertain prognosis? @ -No Drug Therapy requiring intensive monitoring for toxicity (Heparin, Nitro, Insulin, Cardizem)? @ -No Were any procedures done? @ -No Diagnosis/symptom? @ -[Cellulitis, wet gangrene Acute, or Chronic, or Acute on Chronic? @Acute Uncomplicated (without systemic symptoms) or Complicated (systemic symptoms)? @ -default Side effects of treatment? @ -No Exacerbation, Progression, or Severe Exacerbation? @ -No Poses a threat to life or bodily function? How? (Chest pain, [place], [place], pneumonia, PE, COPD, DKA, ARF, appy, cholecystitis, CVA, Diverticulitis, Homicidal, Suicidal, threat to staff... and all critical care pts) @ -[Yes, sepsis (Diego Bullard) - Lab Data Lab Results 10/20/23 10/20/23 10/20/23 Range/Units 17:10 17:10 17:10 WBC 13.9 H (3.8-10.6) k/uL RBC 3.90 L (4.30-5.90) m/uL Hgb 13.2 (13.0-17.5) gm/dL Hct 37.9 L (39.0-53.0) % MCV 97.2 D (80.0-100.0) fL MCH 33.9 (25.0-35.0) pg MCHC 34.9 (31.0-37.0) g/dL RDW 12.0 (11.5-15.5) % Plt Count 555 H (150-450) k/uL MPV 7.2 Neutrophils % 73 % Lymphocytes % 17 % Monocytes % 6 % Eosinophils % 2 % Basophils % 1 % Neutrophils # 10.2 H (1.3-7.7) k/uL Lymphocytes # 2.4 (1.0-4.8) k/uL Monocytes # 0.9 (0-1.0) k/uL Eosinophils # 0.3 (0-0.7) k/uL Basophils # 0.1 (0-0.2) k/uL Sodium 130 L (137-145) mmol/L Potassium 4.6 (3.5-5.1) mmol/L Chloride 95 L (98-107) mmol/L Carbon Dioxide 25 (22-30) mmol/L Anion Gap 10 mmol/L BUN 15 (9-20) mg/dL Creatinine 0.78 (0.66-1.25) mg/dL Est GFR (CKD-EPI)AfAm >90 (>60 ml/min/1.73 sqM) Est GFR (CKD-EPI)NonAf >90 (>60 ml/min/1.73 sqM) Glucose 203 H (74-99) mg/dL Plasma Lactic Acid Mark 1.9 (0.7-2.0) mmol/L Calcium 10.0 (8.4-10.2) mg/dL Total Bilirubin 0.7 (0.2-1.3) mg/dL AST 47 (17-59) U/L ALT 69 H (4-49) U/L Alkaline Phosphatase 196 H (38-126) U/L Total Protein 7.9 (6.3-8.2) g/dL Albumin 4.1 (3.5-5.0) g/dL Disposition <Jhonathan Mccann - Last Filed: 10/20/23 16:38> Is patient prescribed a controlled substance at d/c from ED?: No Time of Disposition: 19:22 <Diego Bullard - Last Filed: 10/20/23 19:22> Clinical Impression: Diabetes mellitus, Cellulitis, Diabetic wet gangrene of the foot Disposition: ADMITTED IP TO THIS HOSP Referrals: None,Stated [Primary Care Provider] - 1-2 days
[2023-10-20 17:49] LABS: Basophils # (A) 0.1 k/uL (0-0.2); Basophils % (A) 1 %; Eosinophils # (A) 0.3 k/uL (0-0.7); Eosinophils % (A) 2 %; HCT 37.9 % (39.0-53.0); HGB 13.2 gm/dL (13.0-17.5); Lymphocytes # (A) 2.4 k/uL (1.0-4.8); Lymphocytes % (A) 17 %; MCH 33.9 pg (25.0-35.0); MCHC 34.9 g/dL (31.0-37.0); Mean Platelet Volume 7.2; Monocytes # (A) 0.9 k/uL (0-1.0); Monocytes % (A) 6 %; Neutrophils # (A) 10.2 k/uL (1.3-7.7); Neutrophils % (A) 73 %; Platelet Count 555 k/uL (150-450); WBC 13.9 k/uL (3.8-10.6)
[2023-10-20 17:57] LABS: MCV 97.2 fL (80.0-100.0)
[2023-10-20 18:02] LABS: ALT 69 U/L (4-49); AST 47 U/L (17-59); African American GFR (CKD) >90 (>60 ml/min/1.73 sqM); Albumin 4.1 g/dL (3.5-5.0); Alkaline Phosphatase 196 U/L (38-126); Anion Gap 10 mmol/L; Blood Urea Nitrogen 15 mg/dL (9-20); Carbon Dioxide 25 mmol/L (22-30); Chloride 95 mmol/L (98-107); Glucose 203 mg/dL (74-99); Non-African American GFR(CKD) >90 (>60 ml/min/1.73 sqM); Potassium 4.6 mmol/L (3.5-5.1); Sodium 130 mmol/L (137-145); Total Bilirubin 0.7 mg/dL (0.2-1.3); Total Protein 7.9 g/dL (6.3-8.2)
--- NOTE | 2023-10-20 18:10 | XR ---
Right foot. HISTORY: Right big toe amputation. COMPARISON: 10/01/2023. TECHNIQUE: 3 views the right foot were obtained. FINDINGS: There are postsurgical changes of amputation of the big toe including the proximal and distal phalanx . There is a small focal area of cortical destruction involving the lateral aspect of the distal firs t metatarsal. Possibility of osteomyelitis is not excluded. Remaining osseous structures are intact. There is no fracture or dislocation. There is a moderate plantar calcaneal spur. IMPRESSION: 1. Amputation of the big toe. 2. Cannot exclude small focal area of osteomyelitis involving the distal first metatarsal as describe d. 3. No fractures or dislocations.
[2023-10-20] MEDS ORDERED: HYDROmorphone 0.5 MG/0.5 ML SYRINGE IVP STA (19:06)
[2023-10-20] MEDS ORDERED: VANCOMYCIN IV PER PHARMACY 1 EACH MISC MISCELLANE PRN (19:06)
[2023-10-20] MEDS ORDERED: PIPERACILLIN-TAZOBACTAM 3.375 GM in SODIUM CHLORIDE 0.9% 100 ML IVPB STA (19:08)
[2023-10-20] MEDS ORDERED: NALOXONE 0.4 MG/ML 1 ML VIAL IV PRN (19:18)
[2023-10-20] MEDS ORDERED: DEXTROSE 50% SYRINGE 50 ML IVP PRN ×2 (19:56)
[2023-10-20] MEDS ORDERED: VANCOMYCIN 1,500 MG in SODIUM CHLORIDE 0.9% 500 ML 500 ML IVPB ONE (20:00)
[2023-10-20] MEDS: SODIUM CHLORIDE 0.9% 1,000 ML IV SCH (20:07)
[2023-10-20] MEDS: INSULIN ASPART (NovoLOG) 100 UNIT/ML VIAL SQ SCH (21:18)
[2023-10-20 21:19] LABS: Glucose,Whole Blood 178 mg/dL (70-110)
[2023-10-20] MEDS: HYDROmorphone 0.5 MG/0.5 ML SYRINGE IVP PRN (23:38)
[2023-10-21] MEDS ORDERED: PIPERACILLIN-TAZOBACTAM 3.375 GM in SODIUM CHLORIDE 0.9% 100 ML IVPB SCH ×2
[2023-10-21] MEDS: HYDROmorphone 0.5 MG/0.5 ML SYRINGE IVP PRN ×6 (04:20→22:40)
[2023-10-21] MEDS: PIPERACILLIN-TAZOBACTAM 3.375 GM in SODIUM CHLORIDE 0.9% 100 ML IVPB SCH ×3 (04:22→20:20)
[2023-10-21 07:56] LABS: African American GFR (CKD) >90 (>60 ml/min/1.73 sqM); Non-African American GFR(CKD) >90 (>60 ml/min/1.73 sqM)
[2023-10-21 07:58] LABS: Glucose,Whole Blood 155 mg/dL (70-110)
[2023-10-21] MEDS: INSULIN ASPART (NovoLOG) 100 UNIT/ML VIAL SQ SCH ×7 (08:12→22:37)
[2023-10-21] MEDS: VANCOMYCIN 1,500 MG in SODIUM CHLORIDE 0.9% 500 ML 500 ML IVPB SCH ×3 (08:14→20:09)
[2023-10-21] MEDS: carvediloL 6.25 MG TAB PO SCH ×2 (08:15→17:42)
[2023-10-21] MEDS: THIAMINE 100 MG TAB PO SCH (08:16)
[2023-10-21] MEDS: FAMOTIDINE 20 MG TAB PO SCH ×2 (08:16→22:36)
[2023-10-21] MEDS: VALSARTAN 160 MG TAB PO SCH (08:16)
[2023-10-21] MEDS: SODIUM CHLORIDE 0.9% 1,000 ML IV SCH ×2 (09:01→23:04)
[2023-10-21] MEDS: NICOTINE 14MG/24HR PATCH TRANSDERM SCH (09:02)
--- NOTE | 2023-10-21 10:07 | P.GSCN ---
History of Present Illness Consult date: 10/21/23 History of present illness: Uziel is a 58-year-old male here today for evaluation of his right great toe wound. On 10/10/2023 he underwent great toe amputation. He is status post limb revascularization. He was discharged home on antibiotics and thought he was doing well without issue. Initially states the wound looked good but then after a few days began having coloration changes to more of a purplish color and subsequently black. He presented back today because of the foul-smelling. Past Medical History Past Medical History: Diabetes Mellitus, Hypertension History of Any Multi-Drug Resistant Organisms: None Reported Past Surgical History: Cholecystectomy, Hernia Repair Additional Past Surgical History / Comment(s): great toe amputation on right foot. Past Anesthesia/Blood Transfusion Reactions: No Reported Reaction Past Psychological History: No Psychological Hx Reported Smoking Status: Current every day smoker Past Alcohol Use History: Occasional Past Drug Use History: None Reported Medications and Allergies Home Medications Medication Instructions Recorded Confirmed Type Aspirin 81 mg PO DAILY #30 tab 10/11/23 10/20/23 Rx Atorvastatin [Lipitor] 40 mg PO HS #30 tab 10/11/23 10/20/23 Rx Famotidine [Pepcid] 20 mg PO BID 21 Days #42 tablet 10/11/23 10/20/23 Rx INSULIN ASPART (NovoLOG) [NovoLOG 3 unit SQ AC-TID #3 pen 10/11/23 10/20/23 Rx (formulary)] Insulin Detemir (Levemir) [Levemir] 8 unit SQ HS #3 pen 10/11/23 10/20/23 Rx Nicotine 14Mg/24Hr Patch [Habitrol] 1 patch TRANSDERM DAILY 7 Days #7 10/11/23 10/20/23 Rx patch Rivaroxaban [Xarelto] 2.5 mg PO BID #60 tab 10/11/23 10/20/23 Rx Thiamine [Vitamin B-1] 100 mg PO DAILY #30 tab 10/11/23 10/20/23 Rx Valsartan [Diovan] 160 mg PO DAILY #30 tab 10/11/23 10/20/23 Rx carvediloL [Coreg] 6.25 mg PO BID-W/MEALS #60 tab 10/11/23 10/20/23 Rx NIFEdipine XL [Procardia XL] 60 mg PO DAILY@1200 10/20/23 10/20/23 History Allergies Allergy/AdvReac Type Severity Reaction Status Date / Time No Known Allergies Allergy Verified 10/20/23 21:21 Surgical - Exam Vital Signs Temp Pulse Resp BP Pulse Ox 97.9 F 76 18 120/84 99 10/20/23 16:31 10/20/23 16:31 10/20/23 16:31 10/20/23 16:31 10/20/23 16:31 Nida pleasant distress. Resting comfortably. HEENT is no sac, atraumatic, ex cellent motion intact. Heart appears regular. Lungs are clear. Abdomen is soft. Extremities are clean and dry couple anterior tibial pulse. Great toe amputation site with eschar. Sutures removed. There is a moderate amount of purulent appearing drainage, foul-smelling to this irrigated out and cleansed with Betadine. Wet-to-dry dressing is replaced. There is still some eschar on the dorsum of the foot. There is an area at the anterior meng on the lateral portion has some fullness. No real appreciable fluctuance Results - Labs 10/20/23 17:10 10/21/23 07:27 Abnormal Lab Results - Last 24 Hours (Table) 10/20/23 10/20/23 10/20/23 Range/Units 17:10 17:10 21:17 WBC 13.9 H (3.8-10.6) k/uL RBC 3.90 L (4.30-5.90) m/uL Hct 37.9 L (39.0-53.0) % Plt Count 555 H (150-450) k/uL Neutrophils # 10.2 H (1.3-7.7) k/uL Sodium 130 L (137-145) mmol/L Chloride 95 L (98-107) mmol/L Glucose 203 H (74-99) mg/dL POC Glucose (mg/dL) 178 H (70-110) mg/dL ALT 69 H (4-49) U/L Alkaline Phosphatase 196 H (38-126) U/L 10/21/23 Range/Units 07:56 WBC (3.8-10.6) k/uL RBC (4.30-5.90) m/uL Hct (39.0-53.0) % Plt Count (150-450) k/uL Neutrophils # (1.3-7.7) k/uL Sodium (137-145) mmol/L Chloride (98-107) mmol/L Glucose (74-99) mg/dL POC Glucose (mg/dL) 155 H (70-110) mg/dL ALT (4-49) U/L Alkaline Phosphatase (38-126) U/L Diabetes panel 10/20/23 10/21/23 Range/Units 17:10 07:27 Sodium 130 L (137-145) mmol/L Potassium 4.6 (3.5-5.1) mmol/L Chloride 95 L (98-107) mmol/L Carbon Dioxide 25 (22-30) mmol/L BUN 15 (9-20) mg/dL Creatinine 0.78 0.69 (0.66-1.25) mg/dL Glucose 203 H (74-99) mg/dL Calcium 10.0 (8.4-10.2) mg/dL AST 47 (17-59) U/L ALT 69 H (4-49) U/L Alkaline Phosphatase 196 H (38-126) U/L Total Protein 7.9 (6.3-8.2) g/dL Albumin 4.1 (3.5-5.0) g/dL Calcium panel 10/20/23 Range/Units 17:10 Calcium 10.0 (8.4-10.2) mg/dL Albumin 4.1 (3.5-5.0) g/dL Pituitary panel 10/20/23 10/21/23 Range/Units 17:10 07:27 Sodium 130 L (137-145) mmol/L Potassium 4.6 (3.5-5.1) mmol/L Chloride 95 L (98-107) mmol/L Carbon Dioxide 25 (22-30) mmol/L BUN 15 (9-20) mg/dL Creatinine 0.78 0.69 (0.66-1.25) mg/dL Glucose 203 H (74-99) mg/dL Calcium 10.0 (8.4-10.2) mg/dL Adrenal panel 10/20/23 10/21/23 Range/Units 17:10 07:27 Sodium 130 L (137-145) mmol/L Potassium 4.6 (3.5-5.1) mmol/L Chloride 95 L (98-107) mmol/L Carbon Dioxide 25 (22-30) mmol/L BUN 15 (9-20) mg/dL Creatinine 0.78 0.69 (0.66-1.25) mg/dL Glucose 203 H (74-99) mg/dL Calcium 10.0 (8.4-10.2) mg/dL Total Bilirubin 0.7 (0.2-1.3) mg/dL AST 47 (17-59) U/L ALT 69 H (4-49) U/L Alkaline Phosphatase 196 H (38-126) U/L Total Protein 7.9 (6.3-8.2) g/dL Albumin 4.1 (3.5-5.0) g/dL Assessment and Plan Assessment: Nonhealing right lower extremity wound, wound infection status post great toe amputation Peripheral arterial disease post-revascularization Plan: We'll consult wound care. This time patient will likely need wound VAC and local care. He may need operative debridement. As for the area on the anterior portion of the meng, uncertain if this is due to hematoma, seroma versus an abscess. We will evaluate with imaging. May need operative intervention at that time revealed a debridement all areas. Discussed the patient and presented for further amputations. He seemingly understands and would like to do a very can to save as much the leg as possible
[2023-10-21 12:25] LABS: Glucose,Whole Blood 192 mg/dL (70-110)
--- NOTE | 2023-10-21 13:31 | P.HPIM ---
History of Present Illness 58-year-old male came in with right great toe wound. Patient had a recent right great toe amputation and the right limb by revascularization procedure patient the started having pain and discoloration of the right surgical site area came back patient does have foul-smelling discharge but when I examined it was wrapped with gauze, x-ray showed possibly of osteomyelitis in that area patient is undergoing CT of the right lower extremity and patient was started on Vanco and Zosyn. Patient is bit hyponatremic clinically doesn't appear to be in congestive heart failure will obtain chest x-ray. Patient had low ejection fraction of 45-50% of the past patient is on Xarelto which is being held presently because of possibility of debridement, patient doesn't know why he is on anticoagulation. REVIEW OF SYSTEMS: CONSTITUTIONAL: No fever, no malaise, no fatigue. HEENT: No recent visual problems or hearing problems. Denied any sore throat. CARDIOVASCULAR: No chest pain, orthopnea, PND, no palpitations, no syncope. PULMONARY: No shortness of breath, no cough, no hemoptysis. GASTROINTESTINAL: No diarrhea, no nausea, no vomiting, no abdominal pain. NEUROLOGICAL: No headaches, no weakness, no numbness. HEMATOLOGICAL: Denies any bleeding or petechiae. GENITOURINARY: Denies any burning micturition, frequency, or urgency. MUSCULOSKELETAL/RHEUMATOLOGICAL: As mentioned in HPI ENDOCRINE: Denies any polyuria or polydipsia. The rest of the 14-point review of systems is negative. PHYSICAL EXAMINATION: GENERAL: The patient is alert and oriented x3, not in any acute distress. Well developed, well nourished. HEENT: Pupils are round and equally reacting to light. EOMI. No scleral icterus. No conjunctival pallor. Normocephalic, atraumatic. No pharyngeal erythema. No thyromegaly. CARDIOVASCULAR: S1 and S2 present. No murmurs, rubs, or gallops. PULMONARY: Chest is clear to auscultation, no wheezing or crackles. ABDOMEN: Soft, nontender, nondistended, normoactive bowel sounds. No palpable organomegaly. MUSCULOSKELETAL: No joint swelling or deformity. EXTREMITIES: No cyanosis, clubbing, or pedal edema. NEUROLOGICAL: Gross neurological examination did not reveal any focal deficits. SKIN: Foul-smelling discharge on the right from the right foot which is covered with gauze Assessment and plan -Infected and right foot wound with possible osteomyelitis can you with the above mentioned antibiotics Joel Sanderson infectious disease will be consulted wound cultures will be obtained patient may need debridement -Uncontrolled hypertension patient is highly noncompliant with any kind of recommendations patient resumed on home medications -Cerebrovascular disease patient and anti-correlation with the above-mentioned medication which is will be temporally held until the the debridement or further amputation procedures are performed for now we'll continue with Lovenox -Type 2 diabetes mellitus -Continued nicotine use counseling was provided neck line having to his heart failure chronic mild diastolic dysfunction without any acute exacerbation patient had a history of all call abuse in the past probably alcoholic cardiomyopathy DVT prophylaxis: Lovenox Past Medical History Past Medical History: Diabetes Mellitus, Hypertension History of Any Multi-Drug Resistant Organisms: None Reported Past Surgical History: Cholecystectomy, Hernia Repair Additional Past Surgical History / Comment(s): great toe amputation on right foot. Past Anesthesia/Blood Transfusion Reactions: No Reported Reaction Past Psychological History: No Psychological Hx Reported Smoking Status: Current every day smoker Past Alcohol Use History: Occasional Past Drug Use History: None Reported Medications and Allergies Home Medications Medication Instructions Recorded Confirmed Type Aspirin 81 mg PO DAILY #30 tab 10/11/23 10/20/23 Rx Atorvastatin [Lipitor] 40 mg PO HS #30 tab 10/11/23 10/20/23 Rx Famotidine [Pepcid] 20 mg PO BID 21 Days #42 tablet 10/11/23 10/20/23 Rx INSULIN ASPART (NovoLOG) [NovoLOG 3 unit SQ AC-TID #3 pen 10/11/23 10/20/23 Rx (formulary)] Insulin Detemir (Levemir) [Levemir] 8 unit SQ HS #3 pen 10/11/23 10/20/23 Rx Nicotine 14Mg/24Hr Patch [Habitrol] 1 patch TRANSDERM DAILY 7 Days #7 10/11/23 10/20/23 Rx patch Rivaroxaban [Xarelto] 2.5 mg PO BID #60 tab 10/11/23 10/20/23 Rx Thiamine [Vitamin B-1] 100 mg PO DAILY #30 tab 10/11/23 10/20/23 Rx Valsartan [Diovan] 160 mg PO DAILY #30 tab 10/11/23 10/20/23 Rx carvediloL [Coreg] 6.25 mg PO BID-W/MEALS #60 tab 10/11/23 10/20/23 Rx NIFEdipine XL [Procardia XL] 60 mg PO DAILY@1200 10/20/23 10/20/23 History Allergies Allergy/AdvReac Type Severity Reaction Status Date / Time No Known Allergies Allergy Verified 10/20/23 21:21 Physical Exam Vitals: Vital Signs Temp Pulse Resp BP Pulse Ox 10/21/23 11:00 56 L 18 154/75 99 10/21/23 08:19 93 18 134/81 96 10/21/23 04:00 98.9 F 63 21 157/77 99 10/21/23 00:00 68 18 115/69 10/20/23 23:00 18 115/69 10/20/23 22:00 67 18 141/80 97 10/20/23 21:00 73 18 134/85 99 10/20/23 20:30 71 18 130/96 98 10/20/23 19:30 70 18 136/87 99 10/20/23 16:31 97.9 F 76 18 120/84 99 Intake and Output 10/20/23 10/21/23 10/21/23 22:59 06:59 14:59 Other: Weight 88.451 kg Results CBC & Chem 7: 10/20/23 17:10 10/21/23 07:27 Labs: Abnormal Lab Results - Last 24 Hours (Table) 10/20/23 10/20/23 10/20/23 Range/Units 17:10 17:10 21:17 WBC 13.9 H (3.8-10.6) k/uL RBC 3.90 L (4.30-5.90) m/uL Hct 37.9 L (39.0-53.0) % Plt Count 555 H (150-450) k/uL Neutrophils # 10.2 H (1.3-7.7) k/uL Sodium 130 L (137-145) mmol/L Chloride 95 L (98-107) mmol/L Glucose 203 H (74-99) mg/dL POC Glucose (mg/dL) 178 H (70-110) mg/dL Hemoglobin A1c (<=6.0) % ALT 69 H (4-49) U/L Alkaline Phosphatase 196 H (38-126) U/L 10/21/23 10/21/23 10/21/23 Range/Units 07:27 07:56 12:23 WBC (3.8-10.6) k/uL RBC (4.30-5.90) m/uL Hct (39.0-53.0) % Plt Count (150-450) k/uL Neutrophils # (1.3-7.7) k/uL Sodium (137-145) mmol/L Chloride (98-107) mmol/L Glucose (74-99) mg/dL POC Glucose (mg/dL) 155 H 192 H (70-110) mg/dL Hemoglobin A1c 7.4 H (<=6.0) % ALT (4-49) U/L Alkaline Phosphatase (38-126) U/L
--- NOTE | 2023-10-21 14:40 | CT ---
EXAMINATION TYPE: CT lower extremity RT w con DATE OF EXAM: 10/21/2023 COMPARISON: Prior CT right lower extremity October 01, 2023 HISTORY: right great toe amputation sx 1 week ago pain and redness around foot and ankle CT DLP: 227.2 mGycm Automated exposure control for dose reduction was used. CONTRAST: Performed with IV Contrast, patient injected with 100 mL of Isovue 300. FINDINGS: Amputation defect distal to the first metatarsal is now present. Bone from the first metatarsal head extends to the skin surface on current study. No well-formed fluid collection or abscess is seen. Addi cified plaque along the vessels in the leg are redemonstrated. IMPRESSION: No well-formed thick-walled fluid collection or abscess identified.
[2023-10-21 17:18] LABS: Glucose,Whole Blood 141 mg/dL (70-110)
[2023-10-21 20:44] LABS: Glucose,Whole Blood 165 mg/dL (70-110)
[2023-10-21] MEDS ORDERED: HEPARIN SODIUM,PORCINE 5,000 UNIT/ML 1 ML VIAL SQ SCH (21:00)
[2023-10-21] MEDS: ATORVASTATIN 40 MG TAB PO SCH (22:37)
[2023-10-21] MEDS: INSULIN DETEMIR (LEVEMIR) 100 UNIT/ML SYR SQ SCH (22:37)
[2023-10-22] MEDS: PIPERACILLIN-TAZOBACTAM 3.375 GM in SODIUM CHLORIDE 0.9% 100 ML IVPB SCH ×3 (00:20→17:10)
[2023-10-22] MEDS: HYDROmorphone 0.5 MG/0.5 ML SYRINGE IVP PRN ×6 (02:44→22:24)
[2023-10-22] MEDS: VANCOMYCIN 1,500 MG in SODIUM CHLORIDE 0.9% 500 ML 500 ML IVPB SCH ×3 (04:39→22:15)
[2023-10-22 06:13] LABS: Glucose,Whole Blood 167 mg/dL (70-110)
[2023-10-22] MEDS: INSULIN ASPART (NovoLOG) 100 UNIT/ML VIAL SQ SCH ×7 (06:41→22:15)
[2023-10-22] MEDS: carvediloL 6.25 MG TAB PO SCH ×2 (06:42→17:02)
[2023-10-22] MEDS: ACETAMINOPHEN TAB 325 MG TAB PO PRN (08:40)
[2023-10-22] MEDS: ENOXAPARIN 40 MG/0.4 ML SYRINGE SQ SCH (08:43)
[2023-10-22] MEDS: FAMOTIDINE 20 MG TAB PO SCH ×2 (09:17→22:16)
[2023-10-22] MEDS: THIAMINE 100 MG TAB PO SCH (09:17)
[2023-10-22] MEDS: VALSARTAN 160 MG TAB PO SCH (09:17)
[2023-10-22] MEDS: NICOTINE 14MG/24HR PATCH TRANSDERM SCH (09:19)
[2023-10-22 10:54] LABS: African American GFR (CKD) >90 (>60 ml/min/1.73 sqM); Non-African American GFR(CKD) >90 (>60 ml/min/1.73 sqM)
[2023-10-22] MEDS ORDERED: VANCOMYCIN TROUGH DUE 1 EACH MISC MISCELLANE ONE (11:00)
[2023-10-22 11:36] LABS: Glucose,Whole Blood 137 mg/dL (70-110)
[2023-10-22 12:02] LABS: ALT 35 U/L (4-49); AST 23 U/L (17-59); Albumin 3.5 g/dL (3.5-5.0); Alkaline Phosphatase 155 U/L (38-126); Anion Gap 9 mmol/L; Blood Urea Nitrogen 7 mg/dL (9-20); Calcium 9.6 mg/dL (8.4-10.2); Carbon Dioxide 24 mmol/L (22-30); Chloride 102 mmol/L (98-107); Globulin 3.4 g/dL; Glucose 136 mg/dL (74-99); Potassium 4.3 mmol/L (3.5-5.1); Sodium 135 mmol/L (137-145); Total Bilirubin 0.5 mg/dL (0.2-1.3); Total Protein 6.9 g/dL (6.3-8.2)
[2023-10-22 12:32] LABS: Basophils # (A) 0.1 k/uL (0-0.2); Basophils % (A) 1 %; Eosinophils # (A) 0.2 k/uL (0-0.7); Eosinophils % (A) 2 %; HCT 31.9 % (39.0-53.0); Lymphocytes # (A) 1.8 k/uL (1.0-4.8); Lymphocytes % (A) 25 %; MCHC 34.6 g/dL (31.0-37.0); MCV 98.4 fL (80.0-100.0); Mean Platelet Volume 6.9; Monocytes # (A) 0.5 k/uL (0-1.0); Monocytes % (A) 7 %; Neutrophils # (A) 4.6 k/uL (1.3-7.7); Neutrophils % (A) 64 %; Platelet Count 424 k/uL (150-450); RBC 3.24 m/uL (4.30-5.90); WBC 7.3 k/uL (3.8-10.6)
--- NOTE | 2023-10-22 12:34 | P.PN ---
Subjective Progress Note Date: 10/22/23 Principal diagnosis: right foot amputation wound Patient seen and examined. Right foot with mild drainage, moderate pain and states some malodor Objective - Vital Signs Vital signs: Vital Signs Temp 98.1 F 10/22/23 08:00 Pulse 53 L 10/22/23 08:00 Resp 16 10/22/23 08:00 BP 131/72 10/22/23 12:12 Pulse Ox 99 10/22/23 08:00 FiO2 Intake & Output 10/21/23 10/22/23 10/22/23 18:59 06:59 18:59 Weight 88.451 kg Other: Voiding Method Toilet - Exam right great toe wound amputation site with ischemic edges, gangrene, purulent drainage and exposed bone Eschar noted on the dorsal aspect of the foot. Palpable PT pulse, good capillary refill at the ankle. - Constitutional General appearance: Present: average body habitus, cooperative, mild distress - EENT Eyes: Present: PERRLA - Respiratory Respiratory: bilateral: CTA - Cardiovascular Rhythm: regular - Gastrointestinal General gastrointestinal: Present: normal bowel sounds. Absent: distended - Neurologic Neurologic: Absent: focal deficits - Psychiatric Psychiatric: Present: A&O x's 3, appropriate affect, intact judgment & insight - Labs CBC & Chem 7: 10/20/23 17:10 10/22/23 10:25 Labs: Abnormal Lab Results - Last 24 Hours (Table) 10/21/23 10/21/23 10/22/23 Range/Units 17:17 20:42 06:12 Sodium (137-145) mmol/L BUN (9-20) mg/dL Glucose (74-99) mg/dL POC Glucose (mg/dL) 141 H 165 H 167 H (70-110) mg/dL Alkaline Phosphatase (38-126) U/L 10/22/23 10/22/23 Range/Units 10:25 11:33 Sodium 135 L (137-145) mmol/L BUN 7 L (9-20) mg/dL Glucose 136 H (74-99) mg/dL POC Glucose (mg/dL) 137 H (70-110) mg/dL Alkaline Phosphatase 155 H (38-126) U/L Microbiology - Last 24 Hours (Table) 10/20/23 17:25 Blood Culture - Preliminary Blood 10/20/23 17:10 Blood Culture - Preliminary Blood Assessment and Plan Assessment: Critical limb ischemia right foot amputation wound with osteomyelitis Right dorsal foot wound Plan: To OR today for debridement and revision of amputation with possible wound vac placement. Questions answered, consent in chart.
[2023-10-22 12:37] LABS: BUN/Creat Ratio 9.75 Ratio (12.00-20.00); Blood Urea Nitrogen 7.8 mg/dL (9.0-27.0); Calcium 9.7 mg/dL (8.7-10.3); Carbon Dioxide 24.2 mmol/L (21.6-31.8); Chloride 99 mmol/L (96-109); Glucose 158 mg/dL (70-110); Potassium 4.8 mmol/L (3.5-5.5); Sodium 135 mmol/L (135-145)
[2023-10-22 13:09] LABS: HCT 32.9 % (39.6-50.0); MCHC 33.4 g/dL (32.0-37.0); MCV 98.8 FL (80.0-97.0); Mean Platelet Volume 9.1 FL (9.5-12.2); NRBC Per 100 WBC 0 X 10*3/uL (0.00-0.01); Platelet Count 405 X 10*3/uL (140-440); RBC 3.33 X 10*6/uL (4.40-5.60); RDW 11.7 % (11.5-14.5); WBC 8.32 X 10*3/uL (4.50-10.00)
[2023-10-22] MEDS ORDERED: PROPOFOL 10 MG/ML 20 ML VIAL IV ONE (13:12)
[2023-10-22] MEDS ORDERED: MIDAZOLAM 2 MG/2 ML VIAL ONE (13:12)
[2023-10-22] MEDS ORDERED: IV FLUID CONTINUATION 1,000 ML IV ONE (13:12)
[2023-10-22] MEDS ORDERED: KETAMINE HCL IN 0.9 % NACL 50 MG/5 ML SYRINGE ONE (13:12)
[2023-10-22] MEDS ORDERED: fentaNYL (PF) 50 MCG/ML 2 ML AMP ONE (13:12)
--- NOTE | 2023-10-22 13:26 | P.PN ---
Subjective Progress Note Date: 10/22/23 58-year-old male came in with right great toe wound. Patient had a recent right great toe amputation and the right limb by revascularization procedure patient the started having pain and discoloration of the right surgical site area came back patient does have foul-smelling discharge but when I examined it was wrapped with gauze, x-ray showed possibly of osteomyelitis in that area patient is undergoing CT of the right lower extremity and patient was started on Vanco and Zosyn. Patient is bit hyponatremic clinically doesn't appear to be in congestive heart failure will obtain chest x-ray. Patient had low ejection fraction of 45-50% of the past patient is on Xarelto which is being held presently because of possibility of debridement, patient doesn't know why he is on anticoagulation. 10/22. Patient seen and examined. Currently npo going for surgical procedure with vascular for right foot ulcer REVIEW OF SYSTEMS: CONSTITUTIONAL: No fever, no malaise,. CARDIOVASCULAR: No chest pain, no palpitations, no syncope. PULMONARY: No shortness of breath, no cough, GASTROINTESTINAL: No diarrhea, no nausea, no vomiting, no abdominal pain. NEUROLOGICAL: No headaches, no weakness, PHYSICAL EXAMINATION: GENERAL: The patient is alert and oriented x3, not in any acute distress. Well developed, well nourished. HEENT: Pupils are round and equally reacting to light. EOMI. No scleral icterus. No conjunctival pallor. Normocephalic, atraumatic. No pharyngeal erythema. No thyromegaly. CARDIOVASCULAR: S1 and S2 present. No murmurs, rubs, or gallops. PULMONARY: Chest is clear to auscultation, no wheezing or crackles. ABDOMEN: Soft, nontender, nondistended, normoactive bowel sounds. No palpable organomegaly. MUSCULOSKELETAL: Right great toe amputation site seen with ischemic and gangrenous changes EXTREMITIES: No cyanosis, clubbing, or pedal edema. NEUROLOGICAL: Gross neurological examination did not reveal any focal deficits. SKIN: No rashes. Assessment and plan -Infected right foot wound Acute right foot osteomyelitis Nonhealing right lower extremity wound Peripheral arterial disease post-revascularization -Uncontrolled hypertension -Cerebrovascular disease -Type 2 diabetes mellitus Monitor vital signs Monitor CBC Monitor CMP Continue telemetry monitoring Encourage use of incentive spirometer Continue wound care Follow-up on blood cultures Continue IV Zosyn and vancomycin Continue Coreg and Diovan Monitor blood sugar levels, continue current insulin regimen ID following Vascular Surgery following, planning debridement and revision of amputation with possible wound vac placement Labs and medication were reviewed.. Continue same treatment. Continue with symptomatic treatment. Resume home medication. Monitor labs and vitals. DVT and GI prophylaxis. Further recommendations as per clinical course of the patient Dictation was produced using [employer] dictation software. please excuse any grammatical, word or spelling errors. Objective - Vital Signs Vital signs: Vital Signs Temp 98.1 F 10/22/23 08:00 Pulse 53 L 10/22/23 08:00 Resp 16 10/22/23 08:00 BP 118/71 10/22/23 08:00 Pulse Ox 99 10/22/23 08:00 FiO2 Intake & Output 10/21/23 10/22/23 10/22/23 18:59 06:59 18:59 Weight 88.451 kg Other: Voiding Method Toilet - Labs CBC & Chem 7: 10/22/23 10:25 10/22/23 10:25 Labs: Abnormal Lab Results - Last 24 Hours (Table) 10/21/23 10/21/23 10/21/23 Range/Units 07:27 12:23 17:17 POC Glucose (mg/dL) 192 H 141 H (70-110) mg/dL Hemoglobin A1c 7.4 H (<=6.0) % 10/21/23 10/22/23 Range/Units 20:42 06:12 POC Glucose (mg/dL) 165 H 167 H (70-110) mg/dL Hemoglobin A1c (<=6.0) % Microbiology - Last 24 Hours (Table) 10/20/23 17:25 Blood Culture - Preliminary Blood 10/20/23 17:10 Blood Culture - Preliminary Blood
[2023-10-22 14:14] LABS: Glucose,Whole Blood 120 mg/dL (70-110)
--- NOTE | 2023-10-22 14:15 | P.OP ---
Date of Procedure: 10/22/23 Preoperative Diagnosis: right great toe amputation wound with gangrene Right anterior meng abscess Postoperative Diagnosis: same Procedure(s) Performed: Right great toe amputation revision Right anterior meng incision and drainage Right great toe amputation wound debridement Anesthesia: [facility] [place] Surgeon: Toro Pollard Estimated Blood Loss (ml): 30 Pathology: other (right foot abscess culture, right amputation wound culture and tissue culture) Condition: stable Disposition: PACU Indications for Procedure: 58-year-old gentleman with history of right great toe amputation presented back to the hospital secondary to gangrene and ischemia of the dictation site with drainage noted. He also has a anterior meng swelling with tenderness possible abscess presents to the operative suite for revision of the amputation and its I&D of the wound. Description of Procedure: After written informed consent was obtained the patient all risks, benefits and complications were described the patient is brought to the operative suite and laid in a supine position. The area of the right foot and lower leg was prepped and draped in usual sterile fashion. Timeout was performed in normal fashion. Utilizing a scalpel the tissue surrounding the exposed bone and scan of the amputation site was excised. There was some purulent areas and ischemic soft tissue which was excised as well as sent for tissue culture. Deep tissue culture was also performed at that time. Due to the exposed bone dissection was carried back further around this bone and it was excised to allow for better flaps. Due to the infection decision was made to keep the area open with placement of Dakin's soaked gauze packed into the wound. Attention was placed then to the anterior tibial abscess. A small incision was then created at the skin and purulent fluid was noted and expressed. This was cultured as well. The areas were then copiously irrigated with Dakin's solution and saline. Dressings were then placed. Patient tolerated the procedure well was taken to the PACU for recovery.
[2023-10-22 14:45] LABS: Erythrocyte Sedimentation Rate 48 mm/Hr (0-20)
[2023-10-22] MEDS ORDERED: VANCOMYCIN 1,500 MG in SODIUM CHLORIDE 0.9% 500 ML 500 ML IVPB SCH (16:00)
[2023-10-22 16:41] LABS: Glucose,Whole Blood 111 mg/dL (70-110)
[2023-10-22] MEDS: AMPICILLIN-SULBACTAM 3 GM in SODIUM CHLORIDE 0.9% 100 ML IVPB SCH (18:14)
[2023-10-22 19:57] LABS: Glucose,Whole Blood 249 mg/dL (70-110)
[2023-10-22] MEDS: INSULIN DETEMIR (LEVEMIR) 100 UNIT/ML SYR SQ SCH (22:14)
[2023-10-22] MEDS: ATORVASTATIN 40 MG TAB PO SCH (22:16)
[2023-10-23] MEDS: AMPICILLIN-SULBACTAM 3 GM in SODIUM CHLORIDE 0.9% 100 ML IVPB SCH ×4 (01:34→17:19)
[2023-10-23] MEDS: HYDROmorphone 0.5 MG/0.5 ML SYRINGE IVP PRN ×6 (01:40→19:58)
--- NOTE | 2023-10-23 03:32 | P.CONS ---
History of Present Illness - Reason for Consult Consult date: 10/22/23 - History of Present Illness Patient is a 58-year-old male with a past medical history of pain for diabetes mellitus and hypertension patient recently did have a right big toe amputation completed on 10/10/2023 status post limb revascularization no cultures were done on that admission and the patient was discharged home on no antibiotics patient now presenting back to the hospital concerning for discoloration of his right big toe amputation site wound which is turning black and did have a foul order patient symptom apparently has been getting worse for the last few days before presentation to the hospital patient did have diabetic neuropathy signs denies significant pain except some pressure patient denies high-grade fever or any chills and presented to the hospital the patient was afebrile patient did have a white count of 8.32 sed rate of 48 creatinine 0.73 liver isms are normal patient did have blood cultures drawn which are currently pending no local culture done even though requested patient was taken to the OR and the patient is status post right big toe amputation revision right anterior meng incision and drainage there was a right anterior meng abscess which has been drained however no culture was done patient is currently on vancomycin and Zosyn infectious disease was consulted for further management of antibiotic therapy ,Patient did have diabetic neuropathy has denies significant pain to his right big toe amputation site main concern has been discoloration and foul- smelling drainage and some pressure-like sensation with associated swelling redness patient denies having any chest pain shortness of breath or cough no nausea vomiting no abdominal pain and no diarrhea Past Medical History Past Medical History: Diabetes Mellitus, Hypertension History of Any Multi-Drug Resistant Organisms: None Reported Past Surgical History: Cholecystectomy, Hernia Repair Additional Past Surgical History / Comment(s): great toe amputation on right foot. Past Anesthesia/Blood Transfusion Reactions: No Reported Reaction Past Psychological History: No Psychological Hx Reported Smoking Status: Current every day smoker Past Alcohol Use History: Occasional Additional Past Alcohol Use History / Comment(s): 3-4 beers a day 4x a week Past Drug Use History: None Reported Medications and Allergies Home Medications Medication Instructions Recorded Confirmed Type Aspirin 81 mg PO DAILY #30 tab 10/11/23 10/20/23 Rx Atorvastatin [Lipitor] 40 mg PO HS #30 tab 10/11/23 10/20/23 Rx Famotidine [Pepcid] 20 mg PO BID 21 Days #42 tablet 10/11/23 10/20/23 Rx INSULIN ASPART (NovoLOG) [NovoLOG 3 unit SQ AC-TID #3 pen 10/11/23 10/20/23 Rx (formulary)] Insulin Detemir (Levemir) [Levemir] 8 unit SQ HS #3 pen 10/11/23 10/20/23 Rx Nicotine 14Mg/24Hr Patch [Habitrol] 1 patch TRANSDERM DAILY 7 Days #7 10/11/23 10/20/23 Rx patch Rivaroxaban [Xarelto] 2.5 mg PO BID #60 tab 10/11/23 10/20/23 Rx Thiamine [Vitamin B-1] 100 mg PO DAILY #30 tab 10/11/23 10/20/23 Rx Valsartan [Diovan] 160 mg PO DAILY #30 tab 10/11/23 10/20/23 Rx carvediloL [Coreg] 6.25 mg PO BID-W/MEALS #60 tab 10/11/23 10/20/23 Rx NIFEdipine XL [Procardia XL] 60 mg PO DAILY@1200 10/20/23 10/20/23 History Allergies Allergy/AdvReac Type Severity Reaction Status Date / Time No Known Allergies Allergy Verified 10/20/23 21:21 Physical Exam Vitals: Vital Signs Temp Pulse Pulse Pulse Resp BP BP 10/22/23 14:38 56 L 16 143/72 10/22/23 14:23 68 16 148/72 10/22/23 14:08 97.4 F L 63 16 136/85 10/22/23 12:12 10/22/23 08:00 98.1 F 53 L 16 10/22/23 02:00 98.0 F 64 18 10/21/23 20:00 97.7 F 60 18 10/21/23 18:05 98.1 F 62 19 145/76 10/21/23 17:43 74 18 142/88 BP Pulse Ox 10/22/23 14:38 100 10/22/23 14:23 100 10/22/23 14:08 99 10/22/23 12:12 131/72 10/22/23 08:00 118/71 99 10/22/23 02:00 123/71 99 10/21/23 20:00 138/79 98 10/21/23 18:05 99 10/21/23 17:43 95 Intake and Output 10/22/23 10/22/23 10/22/23 06:59 14:59 22:59 Intake Total 550 Output Total 440 Balance 110 Intake: IV 550 Output: Urine 400 Estimated Blood Loss 40 Results CBC & Chem 7: 10/23/23 11:23 10/23/23 06:28 Labs: Abnormal Lab Results - Last 24 Hours (Table) 10/21/23 10/22/23 10/22/23 Range/Units 20:42 03:56 03:56 RBC 3.33 L (4.40-5.60) X 10*6/uL Hgb 11.0 L (13.0-17.0) g/dL Hct 32.9 L (39.6-50.0) % MCV 98.8 H (80.0-97.0) FL MCH 33.0 H (27.0-32.0) pg MPV 9.1 L (9.5-12.2) FL ESR 48 H (0-20) mm/Hr Sodium (137-145) mmol/L BUN 7.8 L (9.0-27.0) mg/dL BUN/Creatinine Ratio 9.75 L (12.00-20.00) Ratio Glucose 158 H (70-110) mg/dL POC Glucose (mg/dL) 165 H (70-110) mg/dL Alkaline Phosphatase (38-126) U/L C-Reactive Protein 4.40 H (0.00-0.80) mg/dL 10/22/23 10/22/23 10/22/23 Range/Units 06:12 10:25 10:25 RBC 3.24 L (4.40-5.60) X 10*6/uL Hgb 11.0 L (13.0-17.0) g/dL Hct 31.9 L (39.6-50.0) % MCV (80.0-97.0) FL MCH (27.0-32.0) pg MPV (9.5-12.2) FL ESR (0-20) mm/Hr Sodium 135 L (137-145) mmol/L BUN 7 L (9.0-27.0) mg/dL BUN/Creatinine Ratio (12.00-20.00) Ratio Glucose 136 H (70-110) mg/dL POC Glucose (mg/dL) 167 H (70-110) mg/dL Alkaline Phosphatase 155 H (38-126) U/L C-Reactive Protein (0.00-0.80) mg/dL 10/22/23 10/22/23 10/22/23 Range/Units 11:33 14:12 16:27 RBC (4.40-5.60) X 10*6/uL Hgb (13.0-17.0) g/dL Hct (39.6-50.0) % MCV (80.0-97.0) FL MCH (27.0-32.0) pg MPV (9.5-12.2) FL ESR (0-20) mm/Hr Sodium (137-145) mmol/L BUN (9.0-27.0) mg/dL BUN/Creatinine Ratio (12.00-20.00) Ratio Glucose (70-110) mg/dL POC Glucose (mg/dL) 137 H 120 H 111 H (70-110) mg/dL Alkaline Phosphatase (38-126) U/L C-Reactive Protein (0.00-0.80) mg/dL Microbiology - Last 24 Hours (Table) 10/20/23 17:25 Blood Culture - Preliminary Blood 10/20/23 17:10 Blood Culture - Preliminary Blood Assessment and Plan Plan: 1patient with recent admission to the hospital with right big toe gangrene in this patient who is status post right big toe amputation now presenting to the hospital with discoloration of his right big toe amputation site patient is status post vascular surgery evaluation was taken back to the OR and status post debridement of the necrotic area and a drainage of an abscess unfortunately no culture was done, we will need to cover for the polymicrobial anjum usually associated with diabetic foot infection 2-after the initial OR dressing change deep culture should be obtained both aerobic and anaerobic this was discussed with the nursing staff 3-we will continue the patient on vancomycin however to decrease risk of nephrotoxicity we will discontinue Zosyn and start Unasyn Prognosis guarded We will follow on clinical condition and cultures to further adjust medication if needed Thank you for this consultation we will follow the patient along with you Dictation was produced using [employer] software. please excuse any grammatical, word or spelling errors. Time with Patient: Greater than 30
[2023-10-23 06:16] LABS: Glucose,Whole Blood 130 mg/dL (70-110)
[2023-10-23] MEDS: INSULIN ASPART (NovoLOG) 100 UNIT/ML VIAL SQ SCH ×7 (06:24→21:38)
[2023-10-23] MEDS: carvediloL 6.25 MG TAB PO SCH ×2 (06:29→17:19)
[2023-10-23 07:08] LABS: ALT 29 U/L (4-49); AST 22 U/L (17-59); African American GFR (CKD) >90 (>60 ml/min/1.73 sqM); Albumin 3.3 g/dL (3.5-5.0); Albumin/Globulin Ratio 1.1; Alkaline Phosphatase 144 U/L (38-126); Anion Gap 8 mmol/L; Blood Urea Nitrogen 6 mg/dL (9-20); Calcium 9.3 mg/dL (8.4-10.2); Carbon Dioxide 24 mmol/L (22-30); Chloride 103 mmol/L (98-107); Globulin 3.1 g/dL; Glucose 121 mg/dL (74-99); Non-African American GFR(CKD) >90 (>60 ml/min/1.73 sqM); Potassium 4.2 mmol/L (3.5-5.1); Sodium 135 mmol/L (137-145); Total Bilirubin 0.5 mg/dL (0.2-1.3); Total Protein 6.4 g/dL (6.3-8.2)
[2023-10-23] MEDS: FAMOTIDINE 20 MG TAB PO SCH ×2 (09:16→19:58)
[2023-10-23] MEDS: VANCOMYCIN 1,500 MG in SODIUM CHLORIDE 0.9% 500 ML 500 ML IVPB SCH ×2 (09:16→21:38)
[2023-10-23] MEDS: THIAMINE 100 MG TAB PO SCH (09:16)
[2023-10-23] MEDS: VALSARTAN 160 MG TAB PO SCH (09:16)
[2023-10-23] MEDS: NICOTINE 14MG/24HR PATCH TRANSDERM SCH (09:16)
[2023-10-23] MEDS: ENOXAPARIN 40 MG/0.4 ML SYRINGE SQ SCH (09:18)
[2023-10-23 11:41] LABS: Basophils # (A) 0.1 k/uL (0-0.2); Basophils % (A) 1 %; Eosinophils # (A) 0.2 k/uL (0-0.7); Eosinophils % (A) 2 %; HCT 30.3 % (39.0-53.0); HGB 10.6 gm/dL (13.0-17.5); Lymphocytes # (A) 1.9 k/uL (1.0-4.8); Lymphocytes % (A) 24 %; MCH 34.2 pg (25.0-35.0); MCV 97.7 fL (80.0-100.0); Mean Platelet Volume 7.2; Monocytes # (A) 0.6 k/uL (0-1.0); Monocytes % (A) 8 %; Neutrophils % (A) 64 %; Platelet Count 420 k/uL (150-450); Poikilocytosis Slight; RDW 12.3 % (11.5-15.5); WBC 7.8 k/uL (3.8-10.6)
[2023-10-23 11:59] LABS: Glucose,Whole Blood 194 mg/dL (70-110)
[2023-10-23] MEDS: SODIUM HYPOCHLORITE 0.5% 480 ML BOT MISCELLANE SCH (12:44)
--- NOTE | 2023-10-23 12:49 | P.PN ---
Subjective Progress Note Date: 10/23/23 58-year-old male came in with right great toe wound. Patient had a recent right great toe amputation and the right limb by revascularization procedure patient the started having pain and discoloration of the right surgical site area came back patient does have foul-smelling discharge but when I examined it was wrapped with gauze, x-ray showed possibly of osteomyelitis in that area patient is undergoing CT of the right lower extremity and patient was started on Vanco and Zosyn. Patient is bit hyponatremic clinically doesn't appear to be in congestive heart failure will obtain chest x-ray. Patient had low ejection fraction of 45-50% of the past patient is on Xarelto which is being held presently because of possibility of debridement, patient doesn't know why he is on anticoagulation. 10/22. Patient seen and examined. Currently npo going for surgical procedure with vascular for right foot ulcer 10/23. Patient seen and examined. Patient underwent Right great toe amputation revision, Right anterior meng incision and drainage, Right great toe amputation wound debridement vascular surgery on 10/22. Denies any right foot pain. Denies any fever or chills. Vital signs stable REVIEW OF SYSTEMS: CONSTITUTIONAL: No fever, no malaise,. CARDIOVASCULAR: No chest pain, no palpitations, no syncope. PULMONARY: No shortness of breath, no cough, GASTROINTESTINAL: No diarrhea, no nausea, no vomiting, no abdominal pain. NEUROLOGICAL: No headaches, no weakness, PHYSICAL EXAMINATION: GENERAL: The patient is alert and oriented x3, not in any acute distress. Well developed, well nourished. HEENT: Pupils are round and equally reacting to light. EOMI. No scleral icterus. No conjunctival pallor. Normocephalic, atraumatic. No pharyngeal erythema. No thyromegaly. CARDIOVASCULAR: S1 and S2 present. No murmurs, rubs, or gallops. PULMONARY: Chest is clear to auscultation, no wheezing or crackles. ABDOMEN: Soft, nontender, nondistended, normoactive bowel sounds. No palpable organomegaly. MUSCULOSKELETAL: Right foot bandaged seen EXTREMITIES: No cyanosis, clubbing, or pedal edema. NEUROLOGICAL: Gross neurological examination did not reveal any focal deficits. SKIN: No rashes. Assessment and plan -Infected right foot wound Acute right foot osteomyelitis Nonhealing right lower extremity wound Peripheral arterial disease post-revascularization -Uncontrolled hypertension -Cerebrovascular disease -Type 2 diabetes mellitus Monitor vital signs Monitor CBC Monitor CMP Continue telemetry monitoring Encourage use of incentive spirometer Status post Right great toe amputation revision, Right anterior meng incision and drainage, Right great toe amputation wound debridement vascular surgery on 10/22 Continue wound care Follow-up on blood cultures Continue IV Unasyn and vancomycin Continue Coreg and Diovan Monitor blood sugar levels, continue current insulin regimen ID following Vascular Surgery following Labs and medication were reviewed.. Continue same treatment. Continue with symptomatic treatment. Resume home medication. Monitor labs and vitals. DVT and GI prophylaxis. Further recommendations as per clinical course of the patient Dictation was produced using [employer] dictation software. please excuse any grammatical, word or spelling errors. Objective - Vital Signs Vital signs: Vital Signs Temp 98 F 10/23/23 07:57 Pulse 51 L 10/23/23 07:57 Resp 16 10/23/23 07:57 BP 179/81 10/23/23 12:32 Pulse Ox 100 10/23/23 07:57 FiO2 Intake & Output 10/22/23 10/23/23 10/23/23 18:59 06:59 18:59 Intake Total 550 Output Total 440 Balance 110 Intake: IV 550 Output: Urine 400 Estimated Blood Loss 40 Other: Voiding Method Toilet Toilet # Voids 2 4 - Labs CBC & Chem 7: 10/23/23 11:23 10/23/23 06:28 Labs: Abnormal Lab Results - Last 24 Hours (Table) 10/22/23 10/22/23 10/22/23 Range/Units 03:56 14:12 16:27 RBC 3.33 L (4.40-5.60) X 10*6/uL Hgb 11.0 L (13.0-17.0) g/dL Hct 32.9 L (39.6-50.0) % MCV 98.8 H (80.0-97.0) FL MCH 33.0 H (27.0-32.0) pg MPV 9.1 L (9.5-12.2) FL ESR 48 H (0-20) mm/Hr Sodium (137-145) mmol/L BUN (9-20) mg/dL Glucose (74-99) mg/dL POC Glucose (mg/dL) 120 H 111 H (70-110) mg/dL Alkaline Phosphatase (38-126) U/L Albumin (3.5-5.0) g/dL 10/22/23 10/23/23 10/23/23 Range/Units 19:55 06:13 06:28 RBC (4.40-5.60) X 10*6/uL Hgb (13.0-17.0) g/dL Hct (39.6-50.0) % MCV (80.0-97.0) FL MCH (27.0-32.0) pg MPV (9.5-12.2) FL ESR (0-20) mm/Hr Sodium 135 L (137-145) mmol/L BUN 6 L (9-20) mg/dL Glucose 121 H (74-99) mg/dL POC Glucose (mg/dL) 249 H 130 H (70-110) mg/dL Alkaline Phosphatase 144 H (38-126) U/L Albumin 3.3 L (3.5-5.0) g/dL 10/23/23 10/23/23 Range/Units 11:23 11:56 RBC 3.10 L (4.40-5.60) X 10*6/uL Hgb 10.6 L (13.0-17.0) g/dL Hct 30.3 L (39.6-50.0) % MCV (80.0-97.0) FL MCH (27.0-32.0) pg MPV (9.5-12.2) FL ESR (0-20) mm/Hr Sodium (137-145) mmol/L BUN (9-20) mg/dL Glucose (74-99) mg/dL POC Glucose (mg/dL) 194 H (70-110) mg/dL Alkaline Phosphatase (38-126) U/L Albumin (3.5-5.0) g/dL Microbiology - Last 24 Hours (Table) 10/20/23 17:25 Blood Culture - Preliminary Blood 10/20/23 17:10 Blood Culture - Preliminary Blood
[2023-10-23 16:47] LABS: Glucose,Whole Blood 106 mg/dL (70-110)
[2023-10-23] MEDS: ATORVASTATIN 40 MG TAB PO SCH (19:58)
[2023-10-23 20:11] LABS: Glucose,Whole Blood 226 mg/dL (70-110)
[2023-10-23] MEDS: INSULIN DETEMIR (LEVEMIR) 100 UNIT/ML SYR SQ SCH (21:38)
[2023-10-23] MEDS: ACETAMINOPHEN TAB 325 MG TAB PO PRN (21:43)
[2023-10-24] MEDS: AMPICILLIN-SULBACTAM 3 GM in SODIUM CHLORIDE 0.9% 100 ML IVPB SCH ×5 (01:19→23:18)
--- NOTE | 2023-10-24 01:47 | P.PN ---
Subjective Progress Note Date: 10/23/23 Principal diagnosis: Reason for follow-up is right big toe diabetic foot infection Patient is a 58-year-old male with a past medical history of pain for diabetes mellitus and hypertension patient recently did have a right big toe amputation completed on 10/10/2023 status post limb revascularization no cultures were done on that admission and the patient was discharged home on no antibiotics patient now presenting back to the hospital concerning for discoloration of his right big toe amputation site and drainage concerning for infection status post right big toe amputation site revision drainage of the abscess On today's evaluation that is 10/23/2023 the patient continues to be afebrile, the patient is breathing comfortably on room air patient denies having any chest pain occasional cough no sputum production, the pt denies nausea vomiting no abdominal pain no diarrhea, patient denies any worsening pain to the right big toe. Patient did have a white count of 7.8, creatinine 0.82, cultures are currently pending Objective - Vital Signs Vital signs: Vital Signs Temp 98 F 10/23/23 07:57 Pulse 51 L 10/23/23 07:57 Resp 16 10/23/23 07:57 BP 155/80 10/23/23 07:57 Pulse Ox 100 10/23/23 07:57 FiO2 Intake & Output 10/22/23 10/23/23 10/23/23 18:59 06:59 18:59 Intake Total 550 Output Total 440 Balance 110 Intake: IV 550 Output: Urine 400 Estimated Blood Loss 40 Other: Voiding Method Toilet Toilet # Voids 2 4 - Exam Middle-age male lying in bed in no distress Respiratory system unlabored breathing decreased breath sound the base Heart S1-S2 regular Abdominal soft no tenderness Right big toe is dressed with drainage of the dressing Exam completed with the help of HYDRAULIC ELEVATOR CONSTRUCTOR - Labs CBC & Chem 7: 10/23/23 11:23 10/23/23 06:28 Labs: Abnormal Lab Results - Last 24 Hours (Table) 10/22/23 10/22/23 10/22/23 Range/Units 03:56 03:56 10:25 RBC 3.33 L (4.40-5.60) X 10*6/uL Hgb 11.0 L (13.0-17.0) g/dL Hct 32.9 L (39.6-50.0) % MCV 98.8 H (80.0-97.0) FL MCH 33.0 H (27.0-32.0) pg MPV 9.1 L (9.5-12.2) FL ESR 48 H (0-20) mm/Hr Sodium 135 L (137-145) mmol/L BUN 7.8 L 7 L (9.0-27.0) mg/dL BUN/Creatinine Ratio 9.75 L (12.00-20.00) Ratio Glucose 158 H 136 H (70-110) mg/dL POC Glucose (mg/dL) (70-110) mg/dL Alkaline Phosphatase 155 H (38-126) U/L C-Reactive Protein 4.40 H (0.00-0.80) mg/dL Albumin (3.5-5.0) g/dL 10/22/23 10/22/23 10/22/23 Range/Units 10:25 11:33 14:12 RBC 3.24 L (4.40-5.60) X 10*6/uL Hgb 11.0 L (13.0-17.0) g/dL Hct 31.9 L (39.6-50.0) % MCV (80.0-97.0) FL MCH (27.0-32.0) pg MPV (9.5-12.2) FL ESR (0-20) mm/Hr Sodium (137-145) mmol/L BUN (9.0-27.0) mg/dL BUN/Creatinine Ratio (12.00-20.00) Ratio Glucose (70-110) mg/dL POC Glucose (mg/dL) 137 H 120 H (70-110) mg/dL Alkaline Phosphatase (38-126) U/L C-Reactive Protein (0.00-0.80) mg/dL Albumin (3.5-5.0) g/dL 10/22/23 10/22/23 10/23/23 Range/Units 16:27 19:55 06:13 RBC (4.40-5.60) X 10*6/uL Hgb (13.0-17.0) g/dL Hct (39.6-50.0) % MCV (80.0-97.0) FL MCH (27.0-32.0) pg MPV (9.5-12.2) FL ESR (0-20) mm/Hr Sodium (137-145) mmol/L BUN (9.0-27.0) mg/dL BUN/Creatinine Ratio (12.00-20.00) Ratio Glucose (70-110) mg/dL POC Glucose (mg/dL) 111 H 249 H 130 H (70-110) mg/dL Alkaline Phosphatase (38-126) U/L C-Reactive Protein (0.00-0.80) mg/dL Albumin (3.5-5.0) g/dL 10/23/23 Range/Units 06:28 RBC (4.40-5.60) X 10*6/uL Hgb (13.0-17.0) g/dL Hct (39.6-50.0) % MCV (80.0-97.0) FL MCH (27.0-32.0) pg MPV (9.5-12.2) FL ESR (0-20) mm/Hr Sodium 135 L (137-145) mmol/L BUN 6 L (9.0-27.0) mg/dL BUN/Creatinine Ratio (12.00-20.00) Ratio Glucose 121 H (70-110) mg/dL POC Glucose (mg/dL) (70-110) mg/dL Alkaline Phosphatase 144 H (38-126) U/L C-Reactive Protein (0.00-0.80) mg/dL Albumin 3.3 L (3.5-5.0) g/dL Microbiology - Last 24 Hours (Table) 10/20/23 17:25 Blood Culture - Preliminary Blood 10/20/23 17:10 Blood Culture - Preliminary Blood Assessment and Plan (1) Diabetic foot infection Current Visit: Yes Status: Acute Code(s): E11.628 - TYPE 2 DIABETES MELLITUS WITH OTHER SKIN COMPLICATIONS; L08.9 - LOCAL INFECTION OF THE SKIN AND SUBCUTANEOUS TISSUE, UNSP SNOMED Code(s): 414767369 (2) Toe gangrene Current Visit: Yes Status: Acute Code(s): I96 - GANGRENE, NOT ELSEWHERE CLASSIFIED SNOMED Code(s): 658340443 Plan: 1patient with recent admission to the hospital with right big toe gangrene in this patient who is status post right big toe amputation now presenting to the hospital with discoloration of his right big toe amputation site patient is status post vascular surgery evaluation was taken back to the OR and status post debridement of the necrotic area and a drainage of an abscess , we will need to cover for the polymicrobial anjum usually associated with diabetic foot inf ection 2-patient to continue with the vancomycin and Unasyn while waiting for the culture to finalize further adjustment on the basis of the culture Dictation was produced using [employer] dictation software. please excuse any grammatical, word or spelling errors.
[2023-10-24] MEDS: HYDROmorphone 0.5 MG/0.5 ML SYRINGE IVP PRN ×7 (03:17→23:22)
[2023-10-24 06:13] LABS: Glucose,Whole Blood 137 mg/dL (70-110)
[2023-10-24] MEDS: INSULIN ASPART (NovoLOG) 100 UNIT/ML VIAL SQ SCH ×7 (06:17→20:09)
[2023-10-24] MEDS: carvediloL 6.25 MG TAB PO SCH ×2 (06:21→17:21)
[2023-10-24 06:55] LABS: African American GFR (CKD) >90 (>60 ml/min/1.73 sqM); Non-African American GFR(CKD) >90 (>60 ml/min/1.73 sqM)
[2023-10-24] MEDS: NICOTINE 14MG/24HR PATCH TRANSDERM SCH (09:57)
[2023-10-24] MEDS: ENOXAPARIN 40 MG/0.4 ML SYRINGE SQ SCH (09:57)
[2023-10-24] MEDS: THIAMINE 100 MG TAB PO SCH (09:57)
[2023-10-24] MEDS: FAMOTIDINE 20 MG TAB PO SCH ×2 (09:57→20:14)
[2023-10-24] MEDS: VALSARTAN 160 MG TAB PO SCH (09:58)
[2023-10-24] MEDS: SODIUM HYPOCHLORITE 0.5% 480 ML BOT MISCELLANE SCH (09:58)
--- NOTE | 2023-10-24 10:22 | P.PN ---
Subjective Progress Note Date: 10/24/23 Principal diagnosis: Right great toe amputation wound with gangrene, right anterior meng abscess Patient is seen and examined today as a follow-up. He is postop day #2 for right great toe amputation revision and debridement, and right meng incision and drainage. Patient states overall no significant pain. He has been up and ambulating offloading and using heel only. He does have a postop shoe and his bedside belongings. He's been afebrile. Preliminary wound culture with beta- hemolytic strep group G. Patient is currently on Unasyn. Objective - Vital Signs Vital signs: Vital Signs Temp 98.8 F 10/24/23 06:58 Pulse 51 L 10/24/23 06:58 Resp 18 10/24/23 06:58 BP 127/73 10/24/23 06:58 Pulse Ox 99 10/24/23 06:58 FiO2 Intake & Output 10/23/23 10/24/23 10/24/23 18:59 06:59 18:59 Intake Total 1300 Balance 1300 Intake: Intake, IV Titration 1300 Amount Ampicillin-Sulbactam 3 gm 200 In Sodium Chloride 0.9% 100 ml @ 200 mls/hr IVPB Q6HR [facility] Rx#:[id number] IV Fluid Continuation 1, 600 000 ml @ 0 mls/hr IV .STK -MED ONE Rx#:[id number] Vancomycin 1,500 mg In 500 Sodium Chloride 0.9% 500 ml 500 ml @ 167 mls/hr IVPB Q12H [facility] Rx#: [id number] Other: Voiding Method Toilet Toilet # Voids 4 5 - Exam General appearance: The patient is alert, oriented, appears in no acute distress. HET: Head is normocephalic and atraumatic. Neck: Supple. Abdomen: Soft, nondistended. Extremities: Normal skin color and turgor. Right lower extremity incision and drainage site with mild erythema surrounding, no drainage. Right great toe amputation revision site with dressing clean dry and intact. Dressing changed, tissue with granulation and bleeding following dressing change. - Labs CBC & Chem 7: 10/23/23 11:23 10/24/23 05:07 Labs: Abnormal Lab Results - Last 24 Hours (Table) 10/23/23 10/23/23 10/23/23 Range/Units 11:23 11:56 20:09 RBC 3.10 L (4.30-5.90) m/uL Hgb 10.6 L (13.0-17.5) gm/dL Hct 30.3 L (39.0-53.0) % POC Glucose (mg/dL) 194 H 226 H (70-110) mg/dL 10/24/23 Range/Units 06:12 RBC (4.30-5.90) m/uL Hgb (13.0-17.5) gm/dL Hct (39.0-53.0) % POC Glucose (mg/dL) 137 H (70-110) mg/dL Microbiology - Last 24 Hours (Table) 10/23/23 18:03 Gram Stain - Preliminary Toe - Right First 10/23/23 18:03 Gram Stain - Preliminary Leg - Right 10/20/23 17:25 Blood Culture - Preliminary Blood 10/20/23 17:10 Blood Culture - Preliminary Blood 10/22/23 13:35 Gram Stain - Preliminary Toe - Right First Wound Culture - Preliminary Beta Hemolytic Strep Group G 10/22/23 13:40 Gram Stain - Preliminary Toe - Right First Wound Culture - Preliminary Beta Hemolytic Strep Group G 10/22/23 13:35 Gram Stain - Preliminary Toe - Right First Tissue Culture - Preliminary Beta Hemolytic Strep Group G Assessment and Plan Assessment: 1. Right great toe amputation wound with gangrene status post amputation revision and great toe amputation wound debridement 2. Right anterior meng abscess status post incision and drainage 3. Nicotine dependence Plan: 1. Daily dressing change to great toe amputation site with wet-to-dry with Dakin's solution 2. Offload pressure to right forefoot, heel walk only 3. Patient instructed to wear his postop shoe when ambulating 4. Deep wound cultures obtained and pending 5. Continue with antibiotic recommendations from infectious disease 6. Recommend smoking cessation 7. Possibility of closing amputation site once cultures are finalized and patient is on the indicated antibiotics Thank you for this consultation, we will continue to follow. The impression and plan of care has been dictated as directed. Dr. Pollard I performed a history and examination of this patient, discussed the same with the dictator. I agree with the dictator's note ,documented as a scribe. Any additional findings or plans will be noted.
[2023-10-24 11:39] LABS: Glucose,Whole Blood 131 mg/dL (70-110)
[2023-10-24 16:50] LABS: Glucose,Whole Blood 158 mg/dL (70-110)
[2023-10-24 19:26] LABS: Glucose,Whole Blood 114 mg/dL (70-110)
[2023-10-24] MEDS: ATORVASTATIN 40 MG TAB PO SCH (20:14)
[2023-10-24] MEDS: INSULIN DETEMIR (LEVEMIR) 100 UNIT/ML SYR SQ SCH (20:18)
--- NOTE | 2023-10-24 21:53 | P.PN ---
Subjective Progress Note Date: 10/24/23 This is a pleasant 58 year old male comes back in after right great toe amputation due to increased drainage and odor. .He is now status post operative day#2 right great toe amputation revision and debridement. He also has a right meng abscess underwent I and D. Patients culture showing beta hemolytic group G strep. He is on IV unasyn per ID with the recommendations of 2 weeks of IV ceftriaxone and oral flagyl on discharge. He is being followed by vascular who are recommending to close up the wound in the OR which will be scheduled for tomorrow. He should continue with heel toe ambulation and post op shoe for pressure offloading. His pain is controlled. WBC is normal. Renal function normal. Review of Systems Constitutional: Denied any fatigue denied any fever. Cardio vascular: denied any chest pain, palpitations Gastrointestinal: denied any nausea, vomiting, diarrhea Pulmonary: Denied any shortness of breath cough Neurologic denied any new focal deficits All inpatient medications were reviewed and appropriate changes in these medications as dictated in the interval history and assessment and plan. PHYSICAL EXAMINATION: GENERAL: The patient is alert and oriented x3, not in any acute distress. Well developed, well nourished. HEENT: Pupils are round and equally reacting to light. EOMI. No scleral icterus. No conjunctival pallor. Normocephalic, atraumatic. No pharyngeal erythema. No thyromegaly. CARDIOVASCULAR: S1 and S2 present. No murmurs, rubs, or gallops. PULMONARY: Chest is clear to auscultation, no wheezing or crackles. ABDOMEN: Soft, nontender, nondistended, normoactive bowel sounds. No palpable organomegaly. MUSCULOSKELETAL: No joint swelling or deformity. EXTREMITIES: No cyanosis, clubbing, or pedal edema. NEUROLOGICAL: Gross neurological examination did not reveal any focal deficits. SKIN: No rashes. Assessment and Plan -Infected right foot wound following right great toe amputation patient is postoperative day #2 amputation revision debridment on antibiotic therapy and will need to get midline placed. -Acute right foot osteomyelitis -Nonhealing right lower extremity wound/abscess status post I and D -Peripheral arterial disease post-revascularization -Uncontrolled hypertension On procardia, carvedilol and valsartan currently blood pressure is well controlled recommending to continue on the current medical therapy. -Cerebrovascular disease -Type 2 diabetes mellitus continue accuchecks ACHS sliding scale insulin and levemir -Chronic nicotine use -Chronic alcohol use GI prophylaxis:Pepcid DVT prophylaxis xarelto currently on hold as recommending by surgery. OK to resume after closure of the great toe wound. On lovenox Full Code The impression and plan of care has been dictated by Jael Serrano, Nurse Practitioner as directed. Dr. Masoud MD I have performed a history and physical examination and medical decision making of this patient, discussed the same with the dictator, and agree with the dictators assessment and plan as written, documented as a scribe. Based on total visit time, I have performed more than 50% of this visit. Objective - Vital Signs Vital signs: Vital Signs Temp 98.8 F 10/24/23 06:58 Pulse 51 L 10/24/23 06:58 Resp 18 10/24/23 06:58 BP 127/73 10/24/23 06:58 Pulse Ox 99 10/24/23 06:58 FiO2 Intake & Output 10/23/23 10/24/23 10/24/23 18:59 06:59 18:59 Intake Total 1300 Balance 1300 Intake: Intake, IV Titration 1300 Amount Ampicillin-Sulbactam 3 gm 200 In Sodium Chloride 0.9% 100 ml @ 200 mls/hr IVPB Q6HR [facility] Rx#:[id number] IV Fluid Continuation 1, 600 000 ml @ 0 mls/hr IV .STK -[facility] ONE Rx#:[id number] Vancomycin 1,500 mg In 500 Sodium Chloride 0.9% 500 ml 500 ml @ 167 mls/hr IVPB Q12H [facility] Rx#: [id number] Other: Voiding Method Toilet Toilet # Voids 4 5 - Labs CBC & Chem 7: 10/23/23 11:23 10/24/23 05:07 Labs: Abnormal Lab Results - Last 24 Hours (Table) 10/23/23 10/23/23 10/23/23 Range/Units 11:23 11:56 20:09 RBC 3.10 L (4.30-5.90) m/uL Hgb 10.6 L (13.0-17.5) gm/dL Hct 30.3 L (39.0-53.0) % POC Glucose (mg/dL) 194 H 226 H (70-110) mg/dL 10/24/23 Range/Units 06:12 RBC (4.30-5.90) m/uL Hgb (13.0-17.5) gm/dL Hct (39.0-53.0) % POC Glucose (mg/dL) 137 H (70-110) mg/dL Microbiology - Last 24 Hours (Table) 10/23/23 18:03 Gram Stain - Preliminary Toe - Right First 10/23/23 18:03 Gram Stain - Preliminary Leg - Right 10/20/23 17:25 Blood Culture - Preliminary Blood 10/20/23 17:10 Blood Culture - Preliminary Blood 10/22/23 13:35 Gram Stain - Preliminary Toe - Right First Wound Culture - Preliminary Beta Hemolytic Strep Group G 10/22/23 13:40 Gram Stain - Preliminary Toe - Right First Wound Culture - Preliminary Beta Hemolytic Strep Group G 10/22/23 13:35 Gram Stain - Preliminary Toe - Right First Tissue Culture - Preliminary Beta Hemolytic Strep Group G Assessment and Plan Time with Patient: Less than 30
--- NOTE | 2023-10-24 23:03 | P.PN ---
Subjective Progress Note Date: 10/24/23 Principal diagnosis: Reason for follow-up is right big toe diabetic foot infection Patient is a 58-year-old male with a past medical history of pain for diabetes mellitus and hypertension patient recently did have a right big toe amputation completed on 10/10/2023 status post limb revascularization no cultures were done on that admission and the patient was discharged home on no antibiotics patient now presenting back to the hospital concerning for discoloration of his right big toe amputation site and drainage concerning for infection status post right big toe amputation site revision drainage of the abscess On today's evaluation that is 10/24/2023 the patient remains to be afebrile, patient is breathing comfortably on room air without need for supplemental oxy gen, the patient denies having any chest pain no significant cough or sputum production no nausea vomiting no abdominal pain and no diarrhea, he denies any worsening pain to the right foot wound. Patient did have a creatinine of 0.82 white count of 7.8 cultures positive for beta-hemolytic group G strep Objective - Vital Signs Vital signs: Vital Signs Temp 98.8 F 10/24/23 06:58 Pulse 51 L 10/24/23 06:58 Resp 18 10/24/23 06:58 BP 127/73 10/24/23 06:58 Pulse Ox 99 10/24/23 06:58 FiO2 Intake & Output 10/23/23 10/24/23 10/24/23 18:59 06:59 18:59 Intake Total 1300 Balance 1300 Intake: Intake, IV Titration 1300 Amount Ampicillin-Sulbactam 3 gm 200 In Sodium Chloride 0.9% 100 ml @ 200 mls/hr IVPB Q6HR [facility] Rx#:[id number] IV Fluid Continuation 1, 600 000 ml @ 0 mls/hr IV .STK -[facility] Rx#:[id number] Vancomycin 1,500 mg In 500 Sodium Chloride 0.9% 500 ml 500 ml @ 167 mls/hr IVPB Q12H [facility] Rx#: [id number] Other: Voiding Method Toilet Toilet # Voids 4 5 - Exam Middle-age male lying in bed in no distress Respiratory system unlabored breathing decreased breath sound the base Heart S1-S2 regular Abdominal soft no tenderness Right big toe is dressed with drainage of the dressing Exam completed with the help of SEED CLEANING MACHINE OPERATOR - Labs CBC & Chem 7: 10/23/23 11:23 10/24/23 05:07 Labs: Abnormal Lab Results - Last 24 Hours (Table) 10/23/23 10/23/23 10/23/23 Range/Units 11:23 11:56 20:09 RBC 3.10 L (4.30-5.90) m/uL Hgb 10.6 L (13.0-17.5) gm/dL Hct 30.3 L (39.0-53.0) % POC Glucose (mg/dL) 194 H 226 H (70-110) mg/dL 10/24/23 Range/Units 06:12 RBC (4.30-5.90) m/uL Hgb (13.0-17.5) gm/dL Hct (39.0-53.0) % POC Glucose (mg/dL) 137 H (70-110) mg/dL Microbiology - Last 24 Hours (Table) 10/23/23 18:03 Gram Stain - Preliminary Toe - Right First 10/23/23 18:03 Gram Stain - Preliminary Leg - Right 10/20/23 17:25 Blood Culture - Preliminary Blood 10/20/23 17:10 Blood Culture - Preliminary Blood 10/22/23 13:35 Gram Stain - Preliminary Toe - Right First Wound Culture - Preliminary Beta Hemolytic Strep Group G 10/22/23 13:40 Gram Stain - Preliminary Toe - Right First Wound Culture - Preliminary Beta Hemolytic Strep Group G 10/22/23 13:35 Gram Stain - Preliminary Toe - Right First Tissue Culture - Preliminary Beta Hemolytic Strep Group G Assessment and Plan (1) Diabetic foot infection Current Visit: Yes Status: Acute Code(s): E11.628 - TYPE 2 DIABETES MELLITUS WITH OTHER SKIN COMPLICATIONS; L08.9 - LOCAL INFECTION OF THE SKIN AND SUBCUTANEOUS TISSUE, UNSP SNOMED Code(s): 056932901 (2) Toe gangrene Current Visit: Yes Status: Acute Code(s): I96 - GANGRENE, NOT ELSEWHERE CLASSIFIED SNOMED Code(s): 107330127 Plan: 1patient with recent admission to the hospital with right big toe gangrene in this patient who is status post right big toe amputation now presenting to the hospital with discoloration of his right big toe amputation site patient is status post vascular surgery evaluation was taken back to the OR and status post debridement of the necrotic area and a drainage of an abscess , we will need to cover for the polymicrobial anjum usually associated with diabetic foot infection 2-patient local culture has been finalized with group B strep, I will discontinue vancomycin, continue the patient on Unasyn will benefit from midline and outpatient IV antibiotic therapy either Unasyn or Rocephin and Flagyl combination Dictation was produced using [employer] dictation software. please excuse any grammatical, word or spelling errors. Time with Patient: Less than 30
[2023-10-25] MEDS: HYDROmorphone 0.5 MG/0.5 ML SYRINGE IVP PRN ×7 (05:08→23:31)
[2023-10-25] MEDS: AMPICILLIN-SULBACTAM 3 GM in SODIUM CHLORIDE 0.9% 100 ML IVPB SCH ×4 (05:08→23:23)
[2023-10-25] MEDS: INSULIN ASPART (NovoLOG) 100 UNIT/ML VIAL SQ SCH ×7 (05:53→20:38)
[2023-10-25 06:15] LABS: Glucose,Whole Blood 176 mg/dL (70-110)
[2023-10-25] MEDS: FAMOTIDINE 20 MG TAB PO SCH ×2 (08:21→20:37)
[2023-10-25] MEDS: THIAMINE 100 MG TAB PO SCH (08:21)
[2023-10-25] MEDS: VALSARTAN 160 MG TAB PO SCH (08:21)
[2023-10-25] MEDS: NICOTINE 14MG/24HR PATCH TRANSDERM SCH (08:21)
[2023-10-25] MEDS: carvediloL 6.25 MG TAB PO SCH ×2 (08:21→17:24)
[2023-10-25] MEDS: SODIUM HYPOCHLORITE 0.5% 480 ML BOT MISCELLANE SCH (08:21)
[2023-10-25 11:08] LABS: Glucose,Whole Blood 145 mg/dL (70-110)
[2023-10-25 11:59] LABS: Blood Urea Nitrogen 5.5 mg/dL (9.0-27.0); Calcium 9.8 mg/dL (8.7-10.3); Carbon Dioxide 23.2 mmol/L (21.6-31.8); Chloride 103 mmol/L (96-109); Glucose 165 mg/dL (70-110); Potassium 4.5 mmol/L (3.5-5.5); Sodium 140 mmol/L (135-145)
--- NOTE | 2023-10-25 13:34 | P.PN ---
Subjective Progress Note Date: 10/25/23 This is a pleasant 58 year old male comes back in after right great toe amputation due to increased drainage and odor. .He is now status post operative day#2 right great toe amputation revision and debridement. He also has a right meng abscess underwent I and D. Patients culture showing beta hemolytic group G strep. He is on IV unasyn per ID with the recommendations of 2 weeks of IV ceftriaxone and oral flagyl on discharge. He is being followed by vascular who are recommending to close up the wound in the OR which will be scheduled for tomorrow. He should continue with heel toe ambulation and post op shoe for pressure offloading. His pain is controlled. WBC is normal. Renal function normal. 10/25/2023 Patient is evaluated today on the medical floor he continues on IV Unasyn while inpatient with ID recommending a course of IV ceftriaxone through PICC line as well as oral Flagyl for 2 weeks on discharge patient will receive a dose of IV ceftriaxone tomorrow prior to discharge. Today he is scheduled to go back to the OR with vascular closure of the amputation revision site. He is currently postoperative day #3 amputation revision and debridement. BUN is 5.5 creatinine, 1.0, blood sugars are in 140s. Review of Systems Constitutional: Denied any fatigue denied any fever. Cardio vascular: denied any chest pain, palpitations Gastrointestinal: denied any nausea, vomiting, diarrhea Pulmonary: Denied any shortness of breath cough Neurologic denied any new focal deficits All inpatient medications were reviewed and appropriate changes in these medications as dictated in the interval history and assessment and plan. PHYSICAL EXAMINATION: GENERAL: The patient is alert and oriented x3, not in any acute distress. Well developed, well nourished. HEENT: Pupils are round and equally reacting to light. EOMI. No scleral icterus. No conjunctival pallor. Normocephalic, atraumatic. No pharyngeal erythema. No thyromegaly. CARDIOVASCULAR: S1 and S2 present. No murmurs, rubs, or gallops. PULMONARY: Chest is clear to auscultation, no wheezing or crackles. ABDOMEN: Soft, nontender, nondistended, normoactive bowel sounds. No palpable organomegaly. MUSCULOSKELETAL: No joint swelling or deformity. EXTREMITIES: No cyanosis, clubbing, or pedal edema. NEUROLOGICAL: Gross neurological examination did not reveal any focal deficits. SKIN: No rashes. Assessment and Plan -Infected right foot wound following right great toe amputation patient is postoperative day #3 amputation revision debridment on antibiotic therapy PICC line has been placed and patient will receive 2 weeks of IV ceftriaxone on discharge as well as oral Flagyl. He is going back to the OR today to have the wound closed and can discharge home tomorrow. -Acute right foot osteomyelitis -Nonhealing right lower extremity wound/abscess status post I and D -Peripheral arterial disease post-revascularization -Uncontrolled hypertension On procardia, carvedilol and valsartan currently blood pressure is well controlled recommending to continue on the current medical therapy. -Cerebrovascular disease -Type 2 diabetes mellitus continue accuchecks ACHS sliding scale insulin and levemir -Chronic nicotine use -Chronic alcohol use GI prophylaxis:Pepcid DVT prophylaxis xarelto currently on hold as recommending by surgery. OK to resume after closure of the great toe wound. On lovenox Full Code The impression and plan of care has been dictated by Jael Serrano, Nurse Practitioner as directed. Dr. Masoud MD I have performed a history and physical examination and medical decision making of this patient, discussed the same with the dictator, and agree with the dictators assessment and plan as written, documented as a scribe. Based on total visit time, I have performed more than 50% of this visit. Objective - Vital Signs Vital signs: Vital Signs Temp 97.9 F 10/25/23 07:00 Pulse 58 L 10/25/23 07:00 Resp 17 10/25/23 07:00 BP 138/70 10/25/23 07:00 Pulse Ox 98 10/25/23 07:00 FiO2 Intake & Output 10/24/23 10/25/23 10/25/23 18:59 06:59 18:59 Other: # Voids 4 - Labs CBC & Chem 7: 10/23/23 11:23 10/25/23 04:20 Labs: Abnormal Lab Results - Last 24 Hours (Table) 10/24/23 10/24/23 10/25/23 Range/Units 16:49 19:25 04:20 Anion Gap 13.80 H (4.00-12.00) mmol/L BUN 5.5 L (9.0-27.0) mg/dL BUN/Creatinine Ratio 5.50 L (12.00-20.00) Ratio Glucose 165 H (70-110) mg/dL POC Glucose (mg/dL) 158 H 114 H (70-110) mg/dL 10/25/23 10/25/23 Range/Units 06:04 11:07 Anion Gap (4.00-12.00) mmol/L BUN (9.0-27.0) mg/dL BUN/Creatinine Ratio (12.00-20.00) Ratio Glucose (70-110) mg/dL POC Glucose (mg/dL) 176 H 145 H (70-110) mg/dL Microbiology - Last 24 Hours (Table) 10/22/23 13:35 Anaerobic Culture - Preliminary Toe - Right First 10/23/23 18:03 Gram Stain - Preliminary Leg - Right Wound Culture - Preliminary 10/22/23 13:35 Gram Stain - Final Toe - Right First Wound Culture - Final Beta Hemolytic Strep Group G 10/22/23 13:35 Gram Stain - Final Toe - Right First Tissue Culture - Final Beta Hemolytic Strep Group G 10/22/23 13:40 Gram Stain - Final Toe - Right First Wound Culture - Final Beta Hemolytic Strep Group G 10/23/23 18:03 Gram Stain - Preliminary Toe - Right First Assessment and Plan Time with Patient: Less than 30
[2023-10-25] MEDS ORDERED: LACTATED RINGERS 1,000 ML IV ONE (14:58)
[2023-10-25] MEDS ORDERED: IV FLUID CONTINUATION 1,000 ML IV ONE (14:58)
[2023-10-25 15:06] LABS: Glucose,Whole Blood 112 mg/dL (70-110)
[2023-10-25] MEDS ORDERED: fentaNYL (PF) 50 MCG/ML 2 ML AMP ONE (16:01)
[2023-10-25] MEDS ORDERED: PROPOFOL 10 MG/ML 20 ML VIAL IV ONE (16:01)
[2023-10-25] MEDS ORDERED: MIDAZOLAM 2 MG/2 ML VIAL ONE (16:01)
[2023-10-25] MEDS ORDERED: BACITRACIN ZINC 500 UNIT/GM OINT 28.4 GM TUBE TOPICAL ONE (16:38)
--- NOTE | 2023-10-25 16:53 | P.OP ---
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 Operative Findings: ischemic deep tissue without any signs of deep abscess Description of Procedure: After written and informed consent was obtained and all risks, benefits, and complications were discussed the patient was brought to the operative suite and laid in a supine position. The area of the right foot was prepped and draped in the usual fashion. The wound had some deep tissue ischemia and this was removed with a 15 blade scalpel. Once all questionable tissue and ischemic fat was removed the wound was irrigated and the wound was closed over a debra drain with 2-0 Nylon suture in a vertical mattress fashion. The area was cleansed and dressings were placed. The patient tolerated the procedure well and was sent to PACU for recovery.
[2023-10-25 16:54] LABS: Glucose,Whole Blood 114 mg/dL (70-110)
[2023-10-25 20:31] LABS: Glucose,Whole Blood 154 mg/dL (70-110)
[2023-10-25] MEDS: ATORVASTATIN 40 MG TAB PO SCH (20:37)
[2023-10-25] MEDS: INSULIN DETEMIR (LEVEMIR) 100 UNIT/ML SYR SQ SCH (20:38)
[2023-10-26] MEDS: HYDROmorphone 0.5 MG/0.5 ML SYRINGE IVP PRN ×2 (02:49→06:36)
[2023-10-26] MEDS: AMPICILLIN-SULBACTAM 3 GM in SODIUM CHLORIDE 0.9% 100 ML IVPB SCH (05:12)
[2023-10-26 07:32] LABS: Glucose,Whole Blood 132 mg/dL (70-110)
[2023-10-26] MEDS: INSULIN ASPART (NovoLOG) 100 UNIT/ML VIAL SQ SCH ×4 (08:23→12:12)
[2023-10-26] MEDS ORDERED: HYDROmorphone 0.5 MG/0.5 ML SYRINGE IVP STA (08:30)
[2023-10-26 08:38] VITALS: BP 161/80; PULSE 56; RESP 18; TEMP 97.7
[2023-10-26] MEDS: NICOTINE 14MG/24HR PATCH TRANSDERM SCH (08:38)
[2023-10-26] MEDS: FAMOTIDINE 20 MG TAB PO SCH (08:39)
[2023-10-26] MEDS: THIAMINE 100 MG TAB PO SCH (08:39)
[2023-10-26] MEDS: carvediloL 6.25 MG TAB PO SCH (08:39)
[2023-10-26] MEDS: VALSARTAN 160 MG TAB PO SCH (08:39)
[2023-10-26] MEDS: SODIUM HYPOCHLORITE 0.5% 480 ML BOT MISCELLANE SCH (08:39)
--- NOTE | 2023-10-26 09:47 | P.PN ---
Subjective Progress Note Date: 10/26/23 Principal diagnosis: Right great toe amputation wound with gangrene, right anterior meng abscess Patient is seen and examined today as a follow-up. He had revision of the right great toe amputation site with closure and I&D with iodoform packing of the right meng. The he currently denies any pain. He has been afebrile. No complaints of abdominal pain, nausea, vomiting, fevers or chills. Objective - Vital Signs Vital signs: Vital Signs Temp 97.7 F 10/26/23 07:25 Pulse 56 L 10/26/23 07:25 Resp 18 10/26/23 07:25 BP 161/80 10/26/23 07:25 Pulse Ox 100 10/26/23 07:25 FiO2 Intake & Output 10/25/23 10/26/23 10/26/23 18:59 06:59 18:59 Intake Total 750 Output Total 1 Balance 749 Intake: IV 650 Intake, IV Titration 100 Amount Ampicillin-Sulbactam 3 gm 100 In Sodium Chloride 0.9% 100 ml @ 200 mls/hr IVPB Q6HR [facility] Rx#:[id number] Output: Estimated Blood Loss 1 Other: Voiding Method Toilet # Voids 1 3 - Exam General appearance: The patient is alert, oriented, appears in no acute distress. HET: Head is normocephalic and atraumatic. Neck: Supple. Abdomen: Soft, nondistended. Extremities: Normal skin color and turgor. Right lower extremity incision and drainage site with iodoform packing, mild surrounding erythema. Right great toe amputation revision site well-approximated with sutures with [place] drain in place with minimal serosanguineous output noted on 4 x 4 that was old. All dressings changed. - Labs CBC & Chem 7: 10/23/23 11:23 10/25/23 04:20 Labs: Abnormal Lab Results - Last 24 Hours (Table) 10/25/23 10/25/23 10/25/23 Range/Units 04:20 11:07 15:04 Anion Gap 13.80 H (4.00-12.00) mmol/L BUN 5.5 L (9.0-27.0) mg/dL BUN/Creatinine Ratio 5.50 L (12.00-20.00) Ratio Glucose 165 H (70-110) mg/dL POC Glucose (mg/dL) 145 H 112 H (70-110) mg/dL 10/25/23 10/25/23 10/26/23 Range/Units 16:53 20:29 07:31 Anion Gap (4.00-12.00) mmol/L BUN (9.0-27.0) mg/dL BUN/Creatinine Ratio (12.00-20.00) Ratio Glucose (70-110) mg/dL POC Glucose (mg/dL) 114 H 154 H 132 H (70-110) mg/dL Microbiology - Last 24 Hours (Table) 10/20/23 17:25 Blood Culture - Final Blood 10/20/23 17:10 Blood Culture - Final Blood 10/23/23 18:03 Anaerobic Culture - Preliminary Toe - Right First Beta Hemolytic Strep Group G 10/23/23 18:03 Anaerobic Culture - Preliminary Leg - Right 10/23/23 18:03 Gram Stain - Final Toe - Right First Wound Culture - Final Beta Hemolytic Strep Group G 10/23/23 18:03 Gram Stain - Final Leg - Right Wound Culture - Final Assessment and Plan Assessment: 1. Right great toe amputation wound with gangrene status post amputation revision and closure 2. Right anterior meng abscess status post incision and drainage 3. Nicotine dependence Plan: 1. Daily dressing change to great toe amputation site Vaseline gauze, 4 x 4, Kerlix 2. Daily dressing change to right meng with iodoform packing 4 x 4 and wrapped with Kerlix 3. Offload pressure to right forefoot, heel walk only 4. Patient instructed to wear his postop shoe when ambulating 5. Continue with antibiotic recommendations from infectious disease 6. Recommend smoking cessation 7. Patient is cleared for discharge from vascular surgery. Plan is for home with home health care and home IV antibiotics Thank you for this consultation. The impression and plan of care has been dictated as directed. Dr. Pollard I performed a history and examination of this patient, discussed the same with the dictator. I agree with the dictator's note ,documented as a scribe. Any additional findings or plans will be noted.
[2023-10-26 11:30] LABS: Blood Urea Nitrogen 7.1 mg/dL (9.0-27.0); Calcium 9.6 mg/dL (8.7-10.3); Carbon Dioxide 24.4 mmol/L (21.6-31.8); Chloride 103 mmol/L (96-109); Glucose 100 mg/dL (70-110); Potassium 4.3 mmol/L (3.5-5.5); Sodium 139 mmol/L (135-145)
[2023-10-26 11:47] LABS: Glucose,Whole Blood 119 mg/dL (70-110)
[2023-10-26 12:01] VITALS: BMI 26.4
[2023-10-26] MEDS ORDERED: HYDROcodone/APAP 5-325MG 1 EACH TAB PO PRN (12:11)
== END 2023-10-26 15:30 | disposition home health service (06) | DRG 314 ==
LOC: EC 15:28 → 1SOBS 19:19 → 4SSUR 20:36 → 5NMEDONC 10-25 15:52
PROVIDERS: ADMIT Hospitalist; ATTEND Hospitalist
PROC: 0Y6P0Z0 Detachment at Right 1st Toe, Complete, Open Approach (ICD-10-PCS; principal; 2023-10-22 12:00)
PROC: 0J9N0ZZ Drainage of Right Lower Leg Subcutaneous Tissue and Fascia, Open Approach (ICD-10-PCS; principal; 2023-10-22 12:00)
PROC: 0HQMXZZ Repair Right Foot Skin, External Approach (ICD-10-PCS; 2023-10-25)
DX: T87.43 Infection of amputation stump, right lower extremity (principal); D75.839 Thrombocytosis, unspecified; L03.031 Cellulitis of right toe; E11.40 Type 2 diabetes mellitus with diabetic neuropathy, unspecified; E11.52 Type 2 diabetes mellitus with diabetic peripheral angiopathy with gangrene; E11.621 Type 2 diabetes mellitus with foot ulcer; E11.628 Type 2 diabetes mellitus with other skin complications; E87.1 Hypo-osmolality and hyponatremia; I11.0 Hypertensive heart disease with heart failure; I50.32 Chronic diastolic (congestive) heart failure; F17.210 Nicotine dependence, cigarettes, uncomplicated; Z71.6 Tobacco abuse counseling; I70.229 Atherosclerosis of native arteries of extremities with rest pain, unspecified extremity; L02.415 Cutaneous abscess of right lower limb; L97.519 Non-pressure chronic ulcer of other part of right foot with unspecified severity; M86.171 Other acute osteomyelitis, right ankle and foot; E11.69 Type 2 diabetes mellitus with other specified complication; Z79.01 Long term (current) use of anticoagulants; Z79.4 Long term (current) use of insulin; Z79.82 Long term (current) use of aspirin; Z79.899 Other long term (current) drug therapy; Z91.199 Patient's noncompliance with other medical treatment and regimen due to unspecified reason
CPT/HCPCS: 36410; 36415; 76937; 80048; 80053; 80202; 82565; 83036; 83605; 83735; 85025; 85027; 85652; 86140; 87040; 87070; 87075; 87077; 87186; 87205; 96361; 96365; 96366; 96367; 96375; 96376; 99285

== ENCOUNTER → 2023-12-12 | Outpatient (CLI) | payer OTHER ==
--- NOTE | 2023-12-12 11:47 | CTL ---
EXAMINATION TYPE: CT Low Dose Lung DATE OF EXAM ORDERED: 12/12/2023 HISTORY: . Lung cancer screening CT DLP: 77.[address] CTDI: 2.11 mGy Automated exposure control for dose reduction was used. SCREENING VISIT: Initial. COMPARISON: None available. TECHNIQUE: Low dose computed tomography scan was performed through the chest at 1 mm thick sections a nd reconstructed images in multiple planes at 1 mm and [address] DIAGNOSTIC QUALITY: Satisfactory FINDINGS: Mediastinum and Sally: There is no axillary, mediastinal or hilar lymphadenopathy. Pleural and Pericardial spaces: There are no pleural or pericardial effusions. Upper Abdomen: There is a area of soft tissue density and masslike area within the medial aspect of t he left upper quadrant of indeterminate etiology. This measures approximately 8.3 x 3.6 cm in diamete r. This is of indeterminate origin. Recommend contrast enhanced CT. The gallbladder surgically absent . Cardiovascular: There is mild vascular calcific age within the thoracic aorta without evidence of ane urysm or dilation. Moderate coronary artery calcified lesions are otherwise seen. Lung Parenchyma and Airways: There is mild centrilobular emphysematous changes. Incidental note is ma de of an azygos fissure. There are scattered inflammatory airway changes and bronchial wall thickenin g. There are no significant pulmonary nodules otherwise seen. Bones: No fracture or aggressive osseous lesion. IMPRESSION: 1. Negative lung cancer screening examination for significant pulmonary nodules. 2. Moderate coronary artery calcified patients. 3. Soft tissue masslike density in the left upper quadrant medially is of indeterminate etiology. Mal ignancy would be in the differential diagnosis and a contrast enhanced CT would be recommended for fu rther evaluation at this time for initial workup. CT LUNG RAD AND CT CHEST RECOMMENDATION: Lung-Rad 2 Benign Appearance or Behavior: Continue annual sc reening with LDCT in 12 months.
== END | disposition home or self-care (01) ==
LOC: RADCTMAIN 11:01
PROVIDERS: ATTEND Family Medicine
DX: Z12.2 Encounter for screening for malignant neoplasm of respiratory organs (principal); J98.4 Other disorders of lung; I25.10 Atherosclerotic heart disease of native coronary artery without angina pectoris; F17.210 Nicotine dependence, cigarettes, uncomplicated
CPT/HCPCS: 71271